=== PATIENT | female | born 1945 | race Caucasian/White ===

== ENCOUNTER 2017-04-26 13:34 | Observation (INO) ==
[2017-04-26] MEDS ORDERED: fentaNYL 100 MCG/2 ML VIAL IV ONE ×2 (13:53→14:42)
[2017-04-26 14:35] LABS: Basophils # (Auto) 0 K/mcL (0.0-0.3); Basophils % (Auto) 0.5 % (0.0-2.0); Eosinophils # (Auto) 0.2 K/mcL (0.0-0.7); Eosinophils % (Auto) 2.8 % (0.0-7.0); Granulocytes % (Auto) 62.7 % (38.0-78.0); Lymphocytes # (Auto) 1.8 K/mcL (1.5-4.8); Lymphocytes % (Auto) 25.5 % (15.5-49.0); Mean Cell Volume 90.9 fL (80.0-100.0); Mean Corpuscular HGB Conc 34.5 g/dL (31.0-36.0); Mean Corpuscular Hemoglobin 31.4 pg (26.0-34.0); Monocytes # (Auto) 0.6 K/mcL (0.1-0.9); Monocytes % (Auto) 8.5 % (1.0-12.0); Platelet Count 161 K/mcL (140-440); RBC 4.16 M/mcL (4.00-5.20); Red Cell Distribution Width 14.5 % (11.5-14.5)
--- NOTE | 2017-04-26 14:41 | Emergency Department Note ---
Upper Extremity HPI - General Chief Complaint: Extremity Injury, Upper Stated Complaint: R arm deformitiy r/t fall Time Seen by Provider: 04/26/17 13:39 Source: patient Mode of arrival: wheelchair Limitations: no limitations - History of Present Illness HPI Narrative: 71-year-old female who fell while trying to get out of the gait without letting her dog out. She has an obvious deformity of the right numerous and comes in via EMS having already received 100 mcg of fentanyl. No loss of consciousness or hitting head. She did scrape her elbow as well. had multiple other fractures in the past. She is not eat or drink today except for single Mountain Dew. Place: outdoors - Related Data Home Medications Medication Instructions Recorded Confirmed Potassium Chloride [K-Tab ER] 0 meq PO QDAY 04/26/17 04/26/17 Previous Rx's Medication Instructions Recorded omeprazole 20 mg capsule,delayed 20 mg PO .COMPLEX #90 cap 05/13/16 release celecoxib 200 mg capsule 200 mg PO QDAY #30 cap 09/07/16 spironolactone 25 mg tablet 25 mg PO BID #60 tab 09/07/16 tramadol 50 mg tablet 50 mg PO Q4H PRN #120 tab 11/02/16 amlodipine 10 mg tablet 10 mg PO QDAY #30 tab 12/17/16 pravastatin 40 mg tablet 40 mg PO QHS #90 tab 12/17/16 losartan 100 1 tab PO QDAY #90 tab 01/27/17 mg-hydrochlorothiazide 25 mg tablet levothyroxine 100 mcg tablet 100 mcg PO QDAY #90 tab 02/24/17 sertraline 100 mg tablet See Dose Instructions PO .COMPLEX 02/24/17 #135 tab baclofen 20 mg tablet 20 mg PO Q8H #30 tab 02/25/17 hydrocodone 7.5 mg-acetaminophen 1 tab PO Q6H PRN #60 tab 02/25/17 325 mg tablet oxybutynin chloride ER 10 mg 10 mg PO QDAY #90 tab 04/07/17 tablet,extended release 24 hr oxyCODONE/APAP [Percocet 5-325 mg] 1 tab PO Q4H PRN #20 tablet 04/26/17 Allergies Allergy/AdvReac Type Severity Reaction Status Date / Time codeine Allergy Mild Headache Verified 04/26/17 13:42 Amoxicillin AdvReac Intermediate Vomiting Verified 04/26/17 13:42 Iodides Allergy Mild Other Uncoded 02/25/17 14:01 Review of Systems All systems ED: reviewed and negative except as stated. Past Medical History - Past Medical History Attestation: Yes: The following information was validated with the patient. 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 Obvious deformity of right proximal humerus. Very tender to any movement of that. Normocephalic atraumatic. Conjunctive clear sclerae nonicteric. No nasal discharge or congestion. Neck is supple without lymphadenopathy thyromegaly. Heart regular rate and rhythm no murmurs appreciated. Lungs are clear to auscultation bilaterally without wheezes rales rhonchi or respiratory distress. +2 radial and ulnar pulses both pre-and post reduction of that right humerus. Abdomen is soft nontender nondistended. No pedal edema. She was alert and oriented both pre-and post-sedation. - General Limitations: no limitations Course Vital Signs Temperature 98.0 F 04/26/17 13:34 Pulse Rate 67 04/26/17 13:34 Respiratory Rate 18 04/26/17 13:34 Pulse Oximetry (%) 96 04/26/17 13:34 Temperature 97.9 F 04/26/17 17:45 Pulse Rate 74 04/26/17 18:51 Respiratory Rate 9 L 04/26/17 18:51 Blood Pressure 129/86 04/26/17 18:51 Pulse Oximetry (%) 90 04/26/17 18:51 Procedures - Procedural Sedation Indication: fracture/dislocation reduction ASA Class: III Time of Last PO Intake: 00:00 (See HPI) Preparation: cardiac catheterization technician applied, pulse oximeter, supplemental O2 applied, reversal agents at bedside, IV secured Midazolam: IV Midazolam Dose: 2 IV Propofol Dose (mgs): 150 Patient Tolerated Procedure: well Complications: hypoxia Interventions: oxygen applied, airway repositioned Additional Comments: She tolerated the procedure well with oxygen and did not require any other interventions. However we could not get her off the oxygen even after she awoke fully Extremity Injury, Upper - Lab Data Lab results reviewed: Yes I reviewed the patient's lab results. Result diagrams: 04/26/17 14:09 04/26/17 14:09 Lab Results 04/26/17 04/26/17 Range/Units 14:09 14:09 WBC 6.9 (4.5-11.0) K/mcL RBC 4.16 (4.00-5.20) M/mcL Hgb 13.0 (12.0-15.0) g/dL Hct 37.8 (36.0-48.0) % MCV 90.9 (80.0-100.0) fL MCH 31.4 (26.0-34.0) pg MCHC 34.5 (31.0-36.0) g/dL RDW 14.5 (11.5-14.5) % Plt Count 161 (140-440) K/mcL MPV 9.7 (7.4-10.4) fL Gran % 62.7 (38.0-78.0) % Lymph % (Auto) 25.5 (15.5-49.0) % [place] % (Auto) 8.5 (1.0-12.0) % Eos % (Auto) 2.8 (0.0-7.0) % Baso % (Auto) 0.5 (0.0-2.0) % Gran # 4.3 (1.8-8.0) K/mcL Lymph # (Auto) 1.8 (1.5-4.8) K/mcL [place] # (Auto) 0.6 (0.1-0.9) K/mcL Eos # (Auto) 0.2 (0.0-0.7) K/mcL Baso # (Auto) 0 (0.0-0.3) K/mcL Sodium 140 (133-145) mmol/L Potassium 4.1 (3.3-5.1) mmol/L Chloride 105 (96-108) mmol/L Carbon Dioxide 24 (22-30) mmol/L Anion Gap 11.0 (8-16) BUN 32 H (8-23) mg/dl Creatinine 1.1 (0.6-1.1) mg/dl GFR Calculation 51 Glucose 107 H (70-105) mg/dL Calcium 10.3 (8.6-10.4) mg/dl Total Bilirubin 1.3 H (0.0-1.0) mg/dL AST 16 (0-37) U/l ALT 14 (0-40) U/l Alkaline Phosphatase 97 (39-117) U/L Total Protein 6.9 (5.9-8.4) gm/dL Albumin 4.1 (3.2-5.2) gm/dL Globulin 2.8 (2.2-3.7) gm/dL Albumin/Globulin Ratio 1.5 (1.0-2.3) - Radiology Data Chest x-ray shows no acute cardiopulmonary disease Hand and wrist x-rays show old fractures and significant osteoarthrosis but no acute Right humerus films show severely comminuted fracture surgical neck right humerus; reduction films show much improved alignment - EKG Data EKG attestation: Yes I reviewed and interpreted this EKG. EKG results narrative: EKG shows a rate of 71 with 1 PAC but otherwise normal sinus rhythm Disposition Pt seen by MEDICAL RECORD ASSISTANT/PA only: No Clinical Impression: Humeral fracture Qualifiers: Encounter type: initial encounter Humerus Location: surgical neck Fracture type : closed Fracture morphology: 2-part Fracture alignment: displaced Laterality: right Qualified Code(s): S42.221A - 2-part displaced fracture of surgical neck of right humerus, initial encounter for closed fracture Summary: Severely inferiorly and posteriorly displaced right humeral surgical neck fracture seen. Total during her hospital stay here she received 100 mcg of fentanyl (plus another 100 given by EMS), 3 mg of Dilaudid, 2 mg of Versed-was not touching her pain and it was still 7 out of 10 prior to reduction. I initially discussed the case with Dr. Valadez who felt that it did not require reduction but that we could put her in immobilizer and have her seen on Tuesday by Dr. Partida who would likely do surgery. However as we could not control her pain well despite multiple medicines above, I was concerned also about vascular/neurologic compromise with such a severe fracture/dislocation that we decided to go ahead and attempt reduction . Partially reduced under procedural sedation with propofol- We gave 150 mg of propofol during sedation under full monitoring with oxygen to support. Postreduction film shows much better alignment and she did not require pain medicine after reduction. Shoulder immobilizer was applied . Recovered from sedation doing much better pain-sesay but we are unable to get her off oxygen. She was requiring 5 L of oxygen to keep her saturations above 88% though. so I discussed the case with Dr. David, the hospitalist, who agreed to accept the patient to control her pain and support her respiratory effort Disposition: Xfer As Outpt/Obs ([facility]) Condition: Fair Prescriptions: oxyCODONE/APAP [Percocet 5-325 mg] 1 tab PO Q4H PRN #20 tablet PRN Reason: Pain Referrals: Sd Ugalde MD [Primary Care Provider] - Slim Anderson MD [Physician] -
[2017-04-26] MEDS: HYDROmorphone 2 MG/ML SYRINGE IV PRN ×4 (14:45→16:10)
[2017-04-26 14:52] LABS: ALT/SGPT 14 U/l (0-40); Albumin 4.1 gm/dL (3.2-5.2); Albumin/Globulin Ratio 1.5 (1.0-2.3); Alkaline Phosphatase 97 U/L (39-117); Blood Urea Nitrogen 32 mg/dl (8-23)
[2017-04-26] MEDS ORDERED: ONDANSETRON 4 MG/2 ML VIAL ONE (14:57)
[2017-04-26] MEDS ORDERED: ONDANSETRON 4 MG/2 ML VIAL IV ONE (15:05)
--- NOTE | 2017-04-26 15:22 | XRay Report ---
CLINICAL INFORMATION: Trauma COMPARISON: None. FINDINGS: Obliquely oriented mildly impacted and slightly angulated fracture through the base of the fourth proximal phalanx is appreciated. There is moderate healing callus. Severe erosive osteoarthritis present in the second PIP and DIP, the third DIP fourth and fifth DIP and first DIP with moderate changes in the fourth and fifth PIP. Severe degenerative changes noted in the STT and first CMC. IMPRESSION: Obliquely oriented mildly angulated impaction fracture the base of the fifth proximal phalanx of healing callus implying the fracture is subacute Multilevel degenerative change Interpreted and Authenticated by: Brandon Díaz 04/26/17
--- NOTE | 2017-04-26 15:26 | XRay Report ---
CLINICAL INFORMATION: Trauma COMPARISON: None. FINDINGS: Obliquely oriented healing fracture the base of the fifth proximal phalanx with minimal displacement appreciated. There is no fracture seen within the wrist. Moderate STT and first CMC degenerative change noted. Diffuse soft tissue swelling noted IMPRESSION: 1. No evidence of wrist fracture. 2. Healing minimally displaced oblique fracture base of fifth proximal phalanx again noted Interpreted and Authenticated by: Brandon Díaz 04/26/17
--- NOTE | 2017-04-26 15:26 | XRay Report ---
CLINICAL INFORMATION: Preop COMPARISON: 09/02/2016 FINDINGS:The heart size, mediastinum and pulmonary vessels are unremarkable. The lungs are clear. There are no effusions. The bones and soft tissues are within normal limits. IMPRESSION: Normal chest. Interpreted and Authenticated by: Brandon Díaz 04/26/17
--- NOTE | 2017-04-26 15:28 | XRay Report ---
CLINICAL INFORMATION: Trauma COMPARISON: None. FINDINGS: A severely comminuted fracture through the surgical neck of humerus appreciated. The distal diaphyseal fragment is displaced an entire shaft width inferiorly and medially with respect to the humeral head. Fracture lines actually involves the entire humeral head. Humeral head fragments are mildly - less than 5 mm. Acromial clavicular joint is unremarkable IMPRESSION: Transversely oriented, severely comminuted fracture through the surgical neck with comminuted fracture extension throughout the humeral head. Marked displacement Interpreted and Authenticated by: Brandon Díaz 04/26/17
[2017-04-26] MEDS ORDERED: MIDAZOLAM 2 MG/2 ML VIAL IV ONE (15:41)
[2017-04-26] MEDS ORDERED: PROPOFOL 200 MG/20 ML VIAL IV ONE (16:35)
[2017-04-26] MEDS ORDERED: MIDAZOLAM 5 MG/5 ML VIAL IV ONE (16:36)
[2017-04-26] MEDS ORDERED: diphenhydrAMINE 50 MG/ML VIAL IV ONE (18:13)
--- NOTE | 2017-04-26 18:40 | XRay Report ---
CLINICAL INFORMATION: Post reduction severely comminuted fracture of the humeral head and surgical neck COMPARISON: Prereduction plain films 04/26/2017 1344 hours. FINDINGS: There is marked improved alignment of the severely comminuted fracture of the humeral head and surgical neck. The distal diaphyseal fragment is now displaced only approximately 5 mm lateral to the humeral head. IMPRESSION: Dramatic improvement in alignment of severely comminuted fracture of the humeral head and anatomic and surgical neck. Minimal residual displacement deformity. Interpreted and Authenticated by: Brandon Díaz 04/26/17
--- NOTE | 2017-04-26 19:52 | Internal Med History&Physical ---
Medical - H&P: HPI Patient information: Note initiated : 04/26/17 at 7:49 pm Patient: Selena Jaquez 71 y/o F admitted on for Rt Arm Deformitiy r/t Fall. History of present illness: Ms. Jaquez is a 71 year old female with a history of significant obesity, who was trying to open her gait today, while also keeping the dog inside the gait, and ended up tripping and falling. She landed on her right side, and had immediate pain. She was brought to the emergency room where a comminuted right humerus fracture was diagnosed. It was quite severely displaced. The ER talked with Dr. Valadez of orthopedics. He thought she could just be sent home in a shoulder brace and follow-up with orthopedics on Tuesday. However, the patient was in so much pain, that they did sedation in the ER and reduced the fracture, and then put her in a brace. She tolerated the procedure fine, but has not been able to keep her oxygen saturation above 90% on room air since she received narcotics. The ER held her for 3 hours, but her O2 saturations are still quite low, so she is now admitted for observation. The patient tells me that she has often had trouble with her oxygen levels after anesthesia, in the past. Otherwise, she says she has been feeling pretty well. She denies recent fever or chills, headaches or dizziness, new eye or ear symptoms. She reports that she is "chronically shaky". She denies sore throat or cough. She does have chronic dyspnea on exertion, which is unchanged. She denies chest pain or palpitations. She denies abdominal pain, nausea or vomiting. She reports she has IBS, so has alternating constipation and diarrhea. She denies dysuria. Medical History Seasonal allergic rhinitis. 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/14) use tramadol prn Flank pain (Chronic) Hematuria (Chronic) Hydroureter (Chronic) Ureteric Obstruction Hyperlipidemia (Chronic) Hypertension, essential (Chronic) Major depressive disorder in remission (Chronic) Pain in joint, shoulder region (Chronic) 2011 Fractured upper humerus-conservatively treated Sinusitis (Chronic) Ureteral calculus (Chronic 10/08/13) Urinary incontinence, urge (Chronic 03/26/13) Kidney calculus (Resolved 04/22/14) Left side Nausea (Resolved) Surgical History History of intravascular stent placement (Chronic 08/07/13) 6 x 26 Polaris Loop Stent History of ureter stent (Chronic 10/09/13) Right ureteroscopy with laser of stone and placement of stent. H/O cystoscopy (Resolved 10/09/13) H/O lithotripsy (Resolved 05/07/14) Cystoscopy, placement of 6 x 26 Polaris Loop stent and LT ESWL H/O sinus surgery (Resolved) 1999 H/O tubal ligation (Resolved) 1990 H/O: hemorrhoidectomy (Resolved) 1988 Medication List acetaminophen-codeine 120 mg-12 mg /5 mL (5 mL) 5 mL PO QID PRN, just recently. She denies overt allergy. amlodipine 10 mg PO QDAY celecoxib 200 mg PO QDAY levothyroxine 100 mcg PO QDAY losartan-hydrochlorothiazide 100-25 mg 1 tab PO QDAY omeprazole 20 mg PO once daily before a meal. oxybutynin chloride ER 10 mg PO QDAY potassium chloride ER 10 mEq PO QDAY, plus K-Dominique con 20 mEq nightly pravastatin 40 mg PO QHS promethazine 25 mg PO Q4-6HP PRN sertraline Take 1/2 tablet (50MG) QAM and one tablet (100MG) QHS PO spironolactone 25 mg PO BID tramadol 50 mg PO p.o. twice daily Benadryl 25 mg every 6 hours as needed Allergies/Adverse Reactions codeine Allergy (Mild, Verified 02/25/17 14:01) Headache Amoxicillin Adverse Reaction (Intermediate, Verified 02/25/17 14:01) Vomiting Iodides Allergy (Mild, Uncoded 02/25/17 14:01) Other Family History Aunt Malignant neoplasm of brain Grandmother-maternal Malignant neoplasm of brain Mother Diabetes mellitus Myocardial Infarction Malignant neoplasm of stomach Grandfather-maternal Myocardial Infarction Social History The patient lives with and is the caregiver for her mother. Her 16-year-old granddaughter also lives with her. She denies tobacco or drug use. She drinks alcohol rarely. Medical - H&P: Meds Home Medications Medication Instructions Recorded Confirmed Type spironolactone 25 mg tablet 25 mg PO BID #60 tab 09/07/16 04/26/17 Rx pravastatin 40 mg tablet 40 mg PO QHS #90 tab 12/17/16 04/26/17 Rx levothyroxine 100 mcg tablet 100 mcg PO QDAY #90 tab 02/24/17 04/26/17 Rx Celecoxib 200 mg PO QHS 04/26/17 04/26/17 History Klor-Con M20 20 meq PO QHS 04/26/17 04/26/17 History Losartan/Hctz 100/25 [Hyzaar 1 tab PO QHS 04/26/17 04/26/17 History 100/25] Omeprazole [Prilosec] 20 mg PO DAILY 04/26/17 04/26/17 History Oxybutynin Chloride [Oxybutynin 10 mg PO QHS 04/26/17 04/26/17 History Chloride ER] Potassium Chloride [K-Tab ER] 0 meq PO QDAY 04/26/17 04/26/17 History Sertraline [Zoloft] 100 mg PO QHS 04/26/17 04/26/17 History amLODIPine BESYLATE [Norvasc] 10 mg PO HS 04/26/17 04/26/17 History diphenhydrAMINE [Benadryl] 25 mg PO Q6HP PRN 04/26/17 04/26/17 History sertraline 100 mg tablet 50 mg PO DAILY 04/26/17 04/26/17 History traMADol [Ultram] 50 mg PO BID 04/26/17 04/26/17 History Allergies Allergy/AdvReac Type Severity Reaction Status Date / Time iodine Allergy Intermediate Skin Verified 04/26/17 20:31 Reaction codeine AdvReac Severe Migraine Verified 04/26/17 20:38 Amoxicillin AdvReac Intermediate Diarrhea Verified 04/26/17 20:38 Medical - H&P: Exam - Constitutional Vitals: Temp Pulse Resp BP Pulse Ox 97.9 F 74 9 L 129/86 90 04/26/17 17:45 04/26/17 18:51 04/26/17 18:51 04/26/17 18:51 04/26/17 18:51 Oxygen reported to be as low as 88% on 4 L, now at 90% on a 5 L mask. Respiratory rate ranges from 7-16. The patient is a markedly overweight elderly female, in no acute distress. She does seem a bit groggy from the pain medications. Head: Normocephalic, atraumatic. Eyes: PERRLA, EOMI, anicteric. Ears: TMs and canals are clear. Pharynx: Is clear. Teeth are in fair condition. Mucosa appears dry. Neck: Appears supple, without lymphadenopathy, JVD, thyromegaly, bruits. Cardiac exam shows regular rate and rhythm with normal S1 and S2. No murmurs, rubs, gallops are noted. Lungs: Clear to auscultation, without obvious rales, rhonchi, wheezes. Abdomen: Is quite obese, but soft. There is minimal tenderness to palpation, which is somewhat vague. Bowel sounds are active. Extremities: Show no significant edema, no cyanosis or clubbing. Right arm is held in a brace. Pulses are intact. She can move her fingers fine , but this does cause some pain. Neurologic exam: Patient is awake and oriented, but speech is a bit slurred and she seems sleepy. Motor exam is otherwise nonfocal. Medical - H&P: Reslt - Labs CBC & Chem 7: 04/26/17 14:09 04/26/17 14:09 Labs: Short CBC 04/26/17 Range/Units 14:09 WBC 6.9 (4.5-11.0) K/mcL Hgb 13.0 (12.0-15.0) g/dL Hct 37.8 (36.0-48.0) % Plt Count 161 (140-440) K/mcL BMP 04/26/17 14:09 Sodium 140 Potassium 4.1 Chloride 105 Carbon Dioxide 24 BUN 32 H Creatinine 1.1 Glucose 107 H Calcium 10.3 Liver Function 04/26/17 Range/Units 14:09 Total Bilirubin 1.3 H (0.0-1.0) mg/dL AST 16 (0-37) U/l ALT 14 (0-40) U/l Alkaline Phosphatase 97 (39-117) U/L Albumin 4.1 (3.2-5.2) gm/dL April 26: Right humerus x-ray: Transversely oriented, severely comminuted fracture through the surgical neck with comminuted fracture extension throughout the humeral head with marked displacement. EKG: Shows probable sinus arrhythmia at a rate of about 90. Normal axis. No obvious acute ST-T changes Wrist x-ray: No risk fracture. Healing minimally displaced fracture of the fifth proximal phalanx. Repeat right hand limited 2 view x-ray: Obliquely oriented mildly angulated impaction fracture of the base of the fifth proximal phalanx of the healing callus, implying the fracture is subacute. Chest x-ray: Normal. ABG on 2 L oxygen mask: Shows pH of 7.32, PCO2 51, PO2 67, bicarb 26, O2 saturation 91% Medical - H&P: A/P (1) Fall as cause of accidental injury at home as place of occurrence Current visit: Yes Status: Acute (2) Hypoxia Current visit: Yes Status: Acute (3) Dehydration Current visit: Yes Status: Acute (4) Humeral fracture Current visit: Yes Status: Acute - Narrative A/P Narrative: #1. Pulmonary. Patient presents with persistent hypoxia on room air, after receiving sedation in the emergency room to reduce a humerus fracture. It has been several hours since she was last medicated, but we cannot keep her O2 sats above 90%. Respiratory rate is a bit low, but otherwise there is no obvious reason for this. Given her body habitus, I suspect she has obesity hypoventilation syndrome, which is quite aggravated by sedatives. -Admit to observation, with continuous pulse oximetry. -Check further labs to evaluate hypoxia further, BNP and troponin, d-dimer. 2. Right humerus fracture, after ground-level fall. -Orthopedic evaluation. -Patient is status post reduction. Continue shoulder immobilizer. -Pain meds as needed/tolerated. -PT/ OT evaluations. Consider whether she would be safe to go home at discharge , or would need rehab. -Recent history of multiple falls. 3. CODE STATUS: It sounds like she wants full code, but would not want long- term life support. She says both her sister and her son will act as POA. 4. VT prophylaxis: Subcu heparin. 5. Renal. Patient appears mildly dehydrated. Give gentle IV fluids. #6. GERD. Continue Prilosec. 7. Hypertension. Continue current medications, but I think I will hold the Aldactone, given that she looks a little dry today. 8. Diffuse arthritis. Continue Celebrex, tramadol. For tonight we will also add Tylenol and as needed morphine. 9. Hypothyroidism. Continue levothyroxine. 10. Depression and chronic pain. Continue sertraline. This visit took approximately 50 minutes, to review her case with the ER MD, review test results, order more labs, interview and examine her, and review plan of care with her.
[2017-04-26] MEDS ORDERED: oxyCODONE/APAP 5/325MG TABLET PO PRN ×2 (20:20→22:07)
[2017-04-26] MEDS ORDERED: DOCUSATE SODIUM 100 MG CAPSULE PO PRN ×2 (20:20→22:07)
[2017-04-26] MEDS ORDERED: CALCIUM CARBONATE 500 MG TAB.CHEW CHEWED PRN ×2 (20:20→22:07)
[2017-04-26] MEDS ORDERED: 0.45 % SODIUM CHLORIDE 1,000 ML IV SCH (20:20)
[2017-04-26] MEDS ORDERED: NALOXONE HCL 0.4 MG/ML VIAL IV PRN ×2 (20:20→22:07)
[2017-04-26] MEDS ORDERED: ONDANSETRON 4 MG/2 ML VIAL IV PRN ×2 (20:20→22:07)
[2017-04-26] MEDS ORDERED: ACETAMINOPHEN 325 MG TABLET PO PRN ×2 (20:20→22:07)
[2017-04-26] MEDS ORDERED: MAGNESIUM HYDROXIDE 30 ML ORAL.SUSP PO PRN ×2 (20:20→22:07)
[2017-04-26 20:55] LABS: Appearance,Urine HAZY; Bacteria,Urine 0 /hpf (0); Bilirubin,Urine NEG (NEG); Color,Urine YELLOW; Glucose,Urine (UA) NEGATIVE (NEG); Leukocyte Esterase,Urine 25 /uL (NEG); Mucus,Urine FEW /hpf (0); Nitrate,Urine NEG (NEG); Protein,Urine NEG (NEG); Specific Gravity,Urine 1.018 (1.000-1.035); Urine Blood NEG mg/dL (<0.03); Urine Hyaline Cast 4 /lpf (0-2); Urine RBC < 1 /hpf (0-1); Urine Squamous Epithelial Cell 3 /hpf (0-4); Urine Transitional Epi Cells < 1 /hpf (0-2); Urine WBC 6 /hpf (0-4); Urobilinogen,Urine NEG (NEG)
[2017-04-26] MEDS ORDERED: HEPARIN 5,000 UNIT/ML VIAL SQ SCH (21:00)
[2017-04-26] MEDS: 0.45 % SODIUM CHLORIDE 1,000 ML IV SCH (21:10)
[2017-04-26 21:42] LABS: proBNP 211.1 pg/ml (0-125)
[2017-04-26] MEDS ORDERED: 0.9 % SODIUM CHLORIDE 10 ML SYRINGE IV SCH (22:00)
[2017-04-27] MEDS: 0.9 % SODIUM CHLORIDE 10 ML SYRINGE IV SCH ×2 (05:14→14:43)
[2017-04-27 06:07] LABS: ALT/SGPT 13 U/l (0-40); Albumin 3.9 gm/dL (3.2-5.2); Albumin/Globulin Ratio 1.6 (1.0-2.3); Alkaline Phosphatase 85 U/L (39-117); Bilirubin,Direct 0.2 mg/dL (0.0-0.3); Blood Urea Nitrogen 27 mg/dl (8-23); Gamma Glutamyl Transpeptidase 18 U/L (5-36); Magnesium 2.1 mg/dL (1.6-2.5); Uric Acid 5.9 mg/dL (2.5-8.0)
[2017-04-27 06:57] LABS: Basophils # (Auto) 0 K/mcL (0.0-0.3); Basophils % (Auto) 0.3 % (0.0-2.0); Eosinophils # (Auto) 0.1 K/mcL (0.0-0.7); Eosinophils % (Auto) 1.8 % (0.0-7.0); Granulocytes % (Auto) 70.3 % (38.0-78.0); Lymphocytes # (Auto) 1.4 K/mcL (1.5-4.8); Lymphocytes % (Auto) 18.3 % (15.5-49.0); Mean Cell Volume 90.9 fL (80.0-100.0); Mean Corpuscular Hemoglobin 30.9 pg (26.0-34.0); Monocytes # (Auto) 0.7 K/mcL (0.1-0.9); Monocytes % (Auto) 9.3 % (1.0-12.0); Platelet Count 135 K/mcL (140-440); RBC 3.85 M/mcL (4.00-5.20); Red Cell Distribution Width 14.2 % (11.5-14.5)
[2017-04-27] MEDS ORDERED: LEVOTHYROXINE 100 MCG TABLET PO SCH (07:30)
[2017-04-27] MEDS ORDERED: OMEPRAZOLE 20 MG CAPSULE PO SCH (07:30)
[2017-04-27] MEDS ORDERED: POTASSIUM CHLORIDE 10 MEQ TABLET PO SCH (08:00)
[2017-04-27] MEDS ORDERED: SERTRALINE 50 MG TABLET PO SCH ×2 (09:00→21:00)
[2017-04-27] MEDS ORDERED: traMADol 50 MG TABLET PO SCH (09:00)
[2017-04-27] MEDS ORDERED: HEPARIN 5,000 UNIT/ML VIAL SQ SCH (09:00)
[2017-04-27] MEDS: 0.45 % SODIUM CHLORIDE 1,000 ML IV SCH (10:48)
[2017-04-27] MEDS ORDERED: CETIRIZINE 10 MG TABLET PO ONE (10:58)
--- NOTE | 2017-04-27 12:47 | Internal Med Progress Note ---
Medical - PN: Subj Patient information: Note initiated : 04/27/17 at 12:45 pm Patient: Selena Jaquez 71 y/o F admitted on 04/26/17 for Rt Arm Deformitiy r/t Fall/Humeral Fracture. Interval history: April 26, 2017: History of present illness: Ms. Jaquez is a 71 year old female with a history of significant obesity, who was trying to open her gait today, while also keeping the dog inside the gait, and ended up tripping and falling. She landed on her right side, and had immediate pain. She was brought to the emergency room where a comminuted right humerus fracture was diagnosed. It was quite severely displaced. The ER talked with Dr. Valadez of orthopedics. He thought she could just be sent home in a shoulder brace and follow-up with orthopedics on Tuesday. However, the patient was in so much pain, that they did sedation in the ER and reduced the fracture, and then put her in a brace. She tolerated the procedure fine, but has not been able to keep her oxygen saturation above 90% on room air since she received narcotics. The ER held her for 3 hours, but her O2 saturations are still quite low, so she is now admitted for observation. The patient tells me that she has often had trouble with her oxygen levels after anesthesia, in the past. Otherwise, she says she has been feeling pretty well. She denies recent fever or chills, headaches or dizziness, new eye or ear symptoms. She reports that she is "chronically shaky". She denies sore throat or cough. She does have chronic dyspnea on exertion, which is unchanged. She denies chest pain or palpitations. She denies abdominal pain, nausea or vomiting. She reports she has IBS, so has alternating constipation and diarrhea. She denies dysuria. April 27: This morning, the patient is a bit more comfortable. She is more awake now, and seems to be oxygenating well. She is still having significant pain of her shoulder is moved at all, so did receive oral Percocet. She is now complaining that she is feeling a little itchy all over. She rates her current pain as about 6 out of 10. Nurses note that she has a great deal of difficulty with movement. She needs assistance to stand up, but can walk when she is standing. She needs a lot of assistance, and has a lot of pain if she tries to bathe or dress herself. She does have one leg that is longer than the other, and says that this always puts her little bit off balance. Otherwise, she denies fever or chills, headaches or dizziness, chest pain or shortness of breath, abdominal pain, nausea or vomiting, dysuria. - Constitutional Vitals: Vital Signs Temp Pulse Resp BP Pulse Ox 98.9 F 63 20 133/78 94 04/27/17 12:00 04/27/17 04:00 04/27/17 12:00 04/27/17 12:00 04/27/17 12:00 Period Temp Pulse Resp BP Sys/Garay Pulse Ox Last 24 Hr 97.6 F-98.9 F 63-89 16-20 112-146/73-82 88-95 Intake and Output 04/26/17 04/27/17 04/27/17 21:59 05:59 13:59 Intake Total 400 / 400 1240 / 1240 Output Total 500 / 500 550 / 550 Balance -100 / -100 690 / 690 Weight 264 lb 8 oz Intake & Output: Intake & Output 04/26/17 04/27/17 04/27/17 21:59 05:59 13:59 Intake Total 400 / 400 1240 / 1240 Output Total 500 / 500 550 / 550 Balance -100 / -100 690 / 690 Weight 264 lb 8 oz Intake: IV 1000 / 1000 Sodium Chloride 0.45% 1, 1000 / 1000 000 ml @ 75 mls/hr IV . [id number] [facility] Rx#:[id number] Oral 400 / 400 240 / 240 Output: Void Amount 500 / 500 550 / 550 Other: Meal Breakfast Percent of Meal Consumed 100% Feeding Ability Independent sHe is afebrile. Vital signs are normal, although oxygen saturation ranges from 91% on room air to 94% on 2 L. Neck is supple without obvious lymphadenopathy. Cardiac exam shows regular rate and rhythm. Lungs: Decreased breath sounds at the bases, but otherwise are generally clear. Abdomen is soft and nontender. Extremities: Lower extremities show no significant edema. Right arm is held close to her chest with the shoulder sling. She has significant amount of discomfort if her arm is manipulated in any way. Neurologic exam: Is grossly nonfocal. Medical - PN: Obj Da - Labs CBC & Chem 7: 09/27/17 04:22 04/27/17 04:22 Labs: Abnormal Lab Results 04/27/17 04/27/17 04/26/17 04:22 04:22 20:40 RBC 3.85 L Hgb 11.9 L Hct 35.0 L Plt Count 135 L MPV 11.0 H Lymph # (Auto) 1.4 L BUN 27 H Glucose 115 H Total Bilirubin 1.2 H NT-Pro-B Natriuret Pep Urine Ketones 5/tr A Ur Leukocyte Esterase 25 A Urine WBC 6 H Hyaline Casts 4 H 04/26/17 20:37 RBC Hgb Hct Plt Count MPV Lymph # (Auto) BUN Glucose Total Bilirubin NT-Pro-B Natriuret Pep 211.1 H Urine Ketones Ur Leukocyte Esterase Urine WBC Hyaline Casts April 26: Right humerus x-ray: Transversely oriented, severely comminuted fracture through the surgical neck with comminuted fracture extension throughout the humeral head with marked displacement. EKG: Shows probable sinus arrhythmia at a rate of about 90. Normal axis. No obvious acute ST-T changes Wrist x-ray: No risk fracture. Healing minimally displaced fracture of the fifth proximal phalanx. Repeat right hand limited 2 view x-ray: Obliquely oriented mildly angulated impaction fracture of the base of the fifth proximal phalanx of the healing callus, implying the fracture is subacute. Chest x-ray: Normal. ABG on 2 L oxygen mask: Shows pH of 7.32, PCO2 51, PO2 67, bicarb 26, O2 saturation 91% Meds: Medications Acetaminophen (Tylenol) 650 mg PO Q6HP PRN PRN Reason: PAIN/FEVER > 101 Amlodipine Besylate (Norvasc) 10 mg PO HS CATHY Calcium Carbonate/Glycine (Tums) 1,000 mg CHEWED Q4HP PRN PRN Reason: Dyspepsia Celecoxib (Celebrex) 200 mg PO QHS CATHY Docusate Sodium (Colace) 100 mg PO BID PRN PRN Reason: Constipation Heparin Sodium (Porcine) (Heparin) 5,000 unit SQ Q12 CATHY Last Admin: 04/27/17 09:03 Dose: 5,000 unit Hydrochlorothiazide (Oretic) 25 mg PO HS CATHY Sodium Chloride (Sodium Chloride 0.45%) 1,000 mls @ 75 mls/hr IV .[id number] [facility] Last Admin: 04/27/17 10:48 Dose: 75 mls/hr Levothyroxine Sodium (Synthroid) 100 mcg PO QAMAC [facility] Last Admin: 04/27/17 06:52 Dose: 100 mcg Losartan Potassium (Cozaar) 100 mg PO HS [facility] Magnesium Hydroxide (Milk Of Magnesia) 30 ml PO DAILYP PRN PRN Reason: Constipation Morphine Sulfate (Morphine) 2 mg IV Q2HP PRN PRN Reason: Pain Naloxone HCl (Narcan) 0.1 mg IV Q2MIN PRN PRN Reason: Opiate Reversal Omeprazole (Prilosec) 20 mg PO QAMAC [facility] Last Admin: 04/27/17 06:52 Dose: 20 mg Ondansetron HCl (Zofran) 4 mg IV Q6HP PRN PRN Reason: Nausea And Vomiting Oxybutynin Chloride (Ditropan Xl) 10 mg PO HS [facility] Oxycodone/Acetaminophen (Percocet 5-325 Mg) 1 tab PO Q4HP PRN PRN Reason: Pain Last Admin: 04/27/17 07:28 Dose: 1 tab Potassium Chloride (Kdur) 20 meq PO QHS CATHY Potassium Chloride (Kdur) 10 meq PO QAMCC [facility] Last Admin: 04/27/17 09:02 Dose: 10 meq Sertraline HCl (Zoloft) 50 mg PO DAILY [facility] Last Admin: 04/27/17 09:03 Dose: 50 mg Sertraline HCl (Zoloft) 100 mg PO HS CATHY Simvastatin (Zocor) 20 mg PO HS [facility] Sodium Chloride (Saline Flush) 10 ml IV Q8 [facility] Last Admin: 04/27/17 05:14 Dose: Not Given Tramadol HCl (Ultram) 50 mg PO BID [facility] Last Admin: 04/27/17 09:02 Dose: 50 mg Medical - PN: A/P - Time Spent With Patient Total time spent is greater than 50% in coordination of care (as documented) at patient's floor/unit and/or counseling patient: 25 - 35 minutes (1) Fall as cause of accidental injury at home as place of occurrence Status: Acute Current Visit: Yes (2) Hypoxia Status: Acute Current Visit: Yes (3) Dehydration Status: Acute Current Visit: Yes (4) Humeral fracture Status: Acute Current Visit: Yes - Narrative A/P Narrative: #1. Pulmonary. Patient presents with persistent hypoxia on room air, after receiving sedation in the emergency room to reduce a humerus fracture. It has been several hours since she was last medicated, but we cannot keep her O2 sats above 90%. Respiratory rate is a bit low, but otherwise there is no obvious reason for this. Given her body habitus, I suspect she has obesity- hypoventilation syndrome, which is quite aggravated by sedatives. -Oxygenation appears back to normal today. 2. Right humerus fracture, after ground-level fall. -Orthopedic evaluation. I am still waiting to hear if Dr. Partida might be available to have a look at her today.. -Patient is status post reduction. Continue shoulder immobilizer. -Pain meds as needed/tolerated. -PT/ OT evaluations. Consider whether she would be safe to go home at discharge , or would need rehab. -Recent history of multiple falls. Case management is trying to look at options for her, which would be safe and prevent her from falling again. 3. CODE STATUS: It sounds like she wants full code, but would not want long- term life support. She says both her sister and her son will act as POA. 4. VT prophylaxis: Subcu heparin. 5. Renal. Patient appears mildly dehydrated. Give gentle IV fluids. #6. GERD. Continue Prilosec. 7. Hypertension. Continue current medications, but I think I will hold the Aldactone, given that she looks a little dry today. 8. Diffuse arthritis. Continue Celebrex, tramadol. For tonight we will also add Tylenol and as needed morphine. 9. Hypothyroidism. Continue levothyroxine. 10. Depression and chronic pain. Continue sertraline. Approximately 30 minutes has been spent so far today, reviewing test results, interviewing and examining the patient, touching base with orthopedics, reviewing plan of care with staff, and writing orders. Medical - PN: Qual - VTE Deep Vein Thrombosis/Pulmonary Embolism Present on Admission: No
--- NOTE | 2017-04-27 16:19 | Discharge Summary ---
Medical - DS: Prov Patient information: Note initiated : 04/27/17 at 4:10 pm Patient: Selena Jaquez a 71 y/o F admitted on 04/26/17 for Rt Arm Deformitiy r/t Fall/Humeral Fracture. Date of admission: 04/26/17 20:13 Discharge date: 04/27/17 Primary care physician: Sd Ugalde Admitting clinician: Debbie Donis Consults: 04/27/17 09:56 Consult to Physician [CONS] Routine Comment: humerus fx Consulting Provider: Slim Anderson Reason For Exam: Physician to Consult Attending physician on discharge: Debbie Donis Medical - DS: Meds - Discharge Medications Prescriptions: HYDROcodone/APAP 5/325MG [[place] 5/325Mg] 1 tab PO Q4HP PRN #30 tablet PRN Reason: Pain Active and Home Medications: Discharge medications: Continue all home medications except spironolactone. Please hold this for now. Add [place] 5/325 1-2 every 4 hours as needed uncontrolled pain. Previous home Medications: spironolactone 25 mg tablet 25 mg PO BID #60 tab 09/07/16 [Rx Confirmed Last Taken 04/26/17 08:00] pravastatin 40 mg tablet 40 mg PO QHS #90 tab 12/17/16 [Rx Confirmed 04/26/17 Last Taken 04/25/17 21:00] levothyroxine 100 mcg tablet 100 mcg PO QDAY #90 tab 02/24/17 [Rx Confirmed Last Taken 04/26/17 08:00] Celecoxib 200 mg PO QHS 04/26/17 [History Confirmed 04/26/17 Last Taken 21:00] Klor-Con M20 20 meq PO QHS 04/26/17 [History Confirmed 04/26/17 Last Taken 04/25 21:00] Losartan/Hctz 100/25 [Hyzaar 100/25] 1 tab PO QHS 04/26/17 [History Confirmed Last Taken 04/25/17 21:00] Omeprazole [Prilosec] 20 mg PO DAILY 04/26/17 [History Confirmed 04/26/17 Last Taken 04/26/17 08:00] Oxybutynin Chloride [Oxybutynin Chloride ER] 10 mg PO QHS 04/26/17 [History Confirmed 04/26/17 Last Taken 04/25/17 21:00] Potassium Chloride [K-Tab ER] 10 meq PO DAILY 04/26/17 [History Confirmed Last Taken 04/26/17 08:00] Sertraline [Zoloft] 100 mg PO QHS 04/26/17 [History Confirmed 04/26/17 Last Taken 04/25/17 21:00] amLODIPine BESYLATE [Norvasc] 10 mg PO HS 04/26/17 [History Confirmed 04/26/17 Last Taken 04/25/17 21:00] diphenhydrAMINE [Benadryl] 25 mg PO Q6HP PRN 04/26/17 [History Confirmed Last Taken 01/29/17] sertraline 100 mg tablet 50 mg PO DAILY 04/26/17 [History Confirmed 04/26/17 Last Taken 04/26/17 08:00] traMADol [Ultram] 50 mg PO BID 04/26/17 [History Confirmed 04/26/17 Last Taken 04/26/17 08:00] Medical - DS: Hosp Hospital course: Ms. Jaquez is a 71 year old F April 26, 2017: History of present illness: Ms. Jaquez is a 71 year old female with a history of significant obesity, who was trying to open her gait today, while also keeping the dog inside the gait, and ended up tripping and falling. She landed on her right side, and had immediate pain. She was brought to the emergency room where a comminuted right humerus fracture was diagnosed. It was quite severely displaced. The ER talked with Dr. Valadez of orthopedics. He thought she could just be sent home in a shoulder brace and follow-up with orthopedics on Tuesday. However, the patient was in so much pain, that they did sedation in the ER and reduced the fracture, and then put her in a brace. She tolerated the procedure fine, but has not been able to keep her oxygen saturation above 90% on room air since she received narcotics. The ER held her for 3 hours, but her O2 saturations are still quite low, so she is now admitted for observation. The patient tells me that she has often had trouble with her oxygen levels after anesthesia, in the past. Otherwise, she says she has been feeling pretty well. She denies recent fever or chills, headaches or dizziness, new eye or ear symptoms. She reports that she is "chronically shaky". She denies sore throat or cough. She does have chronic dyspnea on exertion, which is unchanged. She denies chest pain or palpitations. She denies abdominal pain, nausea or vomiting. She reports she has IBS, so has alternating constipation and diarrhea. She denies dysuria. April 27: Hospital course: -This morning, the patient is a bit more comfortable. She is more awake now, and seems to be oxygenating well. -She is still having significant pain of her shoulder is moved at all, so did receive oral Percocet. She is now complaining that she is feeling a little itchy all over. She rates her current pain as about 6 out of 10. Nurses note that she has a great deal of difficulty with movement. She needs assistance to stand up, but can walk when she is standing. She needs a lot of assistance, and has a lot of pain if she tries to bathe or dress herself. She does have one leg that is longer than the other, and says that this always puts her little bit off balance. Otherwise, she denies fever or chills, headaches or dizziness, chest pain or shortness of breath, abdominal pain, nausea or vomiting, dysuria. Exam: sHe is afebrile. Vital signs are normal, although oxygen saturation ranges from 91% on room air to 94% on 2 L. Neck is supple without obvious lymphadenopathy. Cardiac exam shows regular rate and rhythm. Lungs: Decreased breath sounds at the bases, but otherwise are generally clear. Abdomen is soft and nontender. Extremities: Lower extremities show no significant edema. Right arm is held close to her chest with the shoulder sling. She has significant amount of discomfort if her arm is manipulated in any way. Neurologic exam: Is grossly nonfocal. A/P Narrative: #1. Pulmonary. Patient presents with persistent hypoxia on room air, after receiving sedation in the emergency room to reduce a humerus fracture. It has been several hours since she was last medicated, but we cannot keep her O2 sats above 90%. Respiratory rate is a bit low, but otherwise there is no obvious reason for this. Given her body habitus, I suspect she has obesity- hypoventilation syndrome, which is quite aggravated by sedatives. -Oxygenation appears back to normal today. 2. Right humerus fracture, after ground-level fall. -Orthopedic evaluation. Dr. Partida saw her today. He cannot get her on to the OR schedule until Tuesday, so she will be discharged home, to the care of her family, and return on Tuesday for shoulder surgery. -Patient is status post reduction. Continue shoulder immobilizer. -Pain meds as needed/tolerated. She can continue to use tramadol and Tylenol at home. I did give her a prescription for [place], if those are inadequate, but she should use this sparingly. Case management has met with her, and offered her solutions for extra help at home. Her son will take her home this evening. The family will keep a close eye on her for the next day and a half, until she comes back for her surgery. 3. CODE STATUS: It sounds like she wants full code, but would not want long- term life support. She says both her sister and her son will act as POA. 4. VT prophylaxis: Subcu heparin. 5. Renal. Patient appears mildly dehydrated. It was rehydrated. She should try to stay hydrated over the next couple of days. #6. GERD. Continue Prilosec. 7. Hypertension. Continue current medications, but hold the Aldactone, given that she looks a little dry . 8. Diffuse arthritis. Continue Celebrex, tramadol. Add Tylenol as needed [place] as needed 9. Hypothyroidism. Continue levothyroxine. 10. Depression and chronic pain. Continue sertraline. Approximately 40 minutes has been spent so far today, reviewing test results, interviewing and examining the patient, touching base with orthopedics, reviewing plan of care with staff, and writing orders. Discharge diagnosis: The post anesthesia hypoxia. Right humerus fracture. Dehydration. - Time Spent with Patient Total time spent providing and/or coordinating discharge services: Greater than 30 minutes Medical - DS: Exam - Constitutional Vitals: Vital Signs Temp Pulse Resp BP Pulse Ox 04/27/17 15:30 93 04/27/17 15:28 97.5 F 20 118/69 93 04/27/17 12:00 98.9 F 20 133/78 94 04/27/17 07:23 91 04/27/17 07:00 20 91 04/27/17 06:13 98.6 F 20 112/73 94 04/27/17 04:00 98.7 F 63 20 121/77 93 04/27/17 03:55 88 L 04/27/17 01:50 92 04/26/17 23:19 92 04/26/17 23:18 92 04/26/17 23:11 97.6 F 89 16 113/73 93 04/26/17 20:20 95 04/26/17 20:19 98.2 F 70 16 146/82 95 Intake and Output 04/27/17 04/27/17 04/27/17 05:59 13:59 21:59 Intake Total 400 / 400 1240 / 1240 Output Total 500 / 500 550 / 550 1125 / 1125 Balance -100 / -100 690 / 690 -1125 / -1125 Intake: IV 1000 / 1000 Sodium Chloride 0.45% 1, 1000 / 1000 000 ml @ 75 mls/hr IV . [id number] [facility] Rx#:[id number] Oral 400 / 400 240 / 240 Output: Void Amount 500 / 500 550 / 550 1125 / 1125 Other: Meal Breakfast Percent of Meal Consumed 100% Feeding Ability Independent Medical - DS: Data Labs on day of discharge: Labs from last 24 hours 04/27/17 04/27/17 04/26/17 04:22 04:22 20:40 WBC 7.9 RBC 3.85 L Hgb 11.9 L Hct 35.0 L MCV 90.9 MCH 30.9 MCHC 34.0 RDW 14.2 Plt Count 135 L MPV 11.0 H Gran % 70.3 Lymph % (Auto) 18.3 Rains % (Auto) 9.3 Eos % (Auto) 1.8 Baso % (Auto) 0.3 Gran # 5.6 Lymph # (Auto) 1.4 L Rains # (Auto) 0.7 Eos # (Auto) 0.1 Baso # (Auto) 0 Sodium 138 Potassium 4.7 Chloride 104 Carbon Dioxide 23 Anion Gap 11.0 BUN 27 H Creatinine 1.0 GFR Calculation 57 Glucose 115 H Uric Acid 5.9 Calcium 10.0 Phosphorus 3.1 Magnesium 2.1 Total Bilirubin 1.2 H Direct Bilirubin 0.2 GGT 18 AST 14 ALT 13 Alkaline Phosphatase 85 Lactate Dehydrogenase 175 NT-Pro-B Natriuret Pep Total Protein 6.4 Albumin 3.9 Globulin 2.5 Albumin/Globulin Ratio 1.6 Triglycerides 129 Urine Color Yellow Urine Appearance Hazy Urine pH 5.0 Ur Specific [place] 1.018 Urine Protein Neg Urine Glucose (UA) Negative Urine Ketones 5/tr A Urine Occult Blood Neg Urine Nitrate Neg Urine Bilirubin Neg Urine Urobilinogen Neg Ur Leukocyte Esterase 25 A Urine RBC < 1 Urine WBC 6 H Ur Squamous Epith Cells 3 Ur Transition Epith Cell < 1 Urine Bacteria 0 Hyaline Casts 4 H Urine Mucus Few Ur Culture Indicated? Yes 04/26/17 20:37 WBC RBC Hgb Hct MCV MCH MCHC RDW Plt Count MPV Gran % Lymph % (Auto) Rains % (Auto) Eos % (Auto) Baso % (Auto) Gran # Lymph # (Auto) Rains # (Auto) Eos # (Auto) Baso # (Auto) Sodium Potassium Chloride Carbon Dioxide Anion Gap BUN Creatinine GFR Calculation Glucose Uric Acid Calcium Phosphorus Magnesium Total Bilirubin Direct Bilirubin GGT AST ALT Alkaline Phosphatase Lactate Dehydrogenase NT-Pro-B Natriuret Pep 211.1 H Total Protein Albumin Globulin Albumin/Globulin Ratio Triglycerides Urine Color Urine Appearance Urine pH Ur Specific [place] Urine Protein Urine Glucose (UA) Urine Ketones Urine Occult Blood Urine Nitrate Urine Bilirubin Urine Urobilinogen Ur Leukocyte Esterase Urine RBC Urine WBC Ur Squamous Epith Cells Ur Transition Epith Cell Urine Bacteria Hyaline Casts Urine Mucus Ur Culture Indicated? Preliminary micro results at discharge 04/26/17 20:40 Urine Culture - Preliminary Urine - Clean Void Mid-Stream April 26: Right humerus x-ray: Transversely oriented, severely comminuted fracture through the surgical neck with comminuted fracture extension throughout the humeral head with marked displacement. EKG: Shows probable sinus arrhythmia at a rate of about 90. Normal axis. No obvious acute ST-T changes Wrist x-ray: No risk fracture. Healing minimally displaced fracture of the fifth proximal phalanx. Repeat right hand limited 2 view x-ray: Obliquely oriented mildly angulated impaction fracture of the base of the fifth proximal phalanx of the healing callus, implying the fracture is subacute. Chest x-ray: Normal. ABG on 2 L oxygen mask: Shows pH of 7.32, PCO2 51, PO2 67, bicarb 26, O2 saturation 91% Medical - DS: A/P - Patient/Caregiver Discharge Instructions Activity: increase activity as tolerated, as instructed Diet: Low Sodium (2gm) Additional Instructions: 1. For your right shoulder fracture: -Try to keep your shoulder and arm in the brace at all times. -Use Celebrex and tramadol as before, for pain. Add Tylenol 500 mg 1-2 tablets every 8 hours as needed for extra pain control. If this is not adequate, and hydrocodone/APAP in place of the Tylenol, but be aware that this might also suppress your breathing. -You can also use ice packs or hot packs on your arm if that seems to give you comfort. -Return to the hospital on Tuesday, as directed by Dr. Partida, for surgery to repair your fracture. If you have not been contacted with an arrival time by , please call . #2. Dehydration On arrival yesterday your kidney function looks like you were a little behind on fluids. I would discontinue the spironolactone for now. Continue your other medications. Prescriptions: HYDROcodone/APAP 5/325MG [[place] 5/325Mg] 1 tab PO Q4HP PRN #30 tablet PRN Reason: Pain - Problem Maintenance (1) Fall as cause of accidental injury at home as place of occurrence Status: Acute (2) Hypoxia Status: Acute (3) Dehydration Status: Resolved (4) Humeral fracture Status: Acute Qualifiers: Encounter type: initial encounter Humerus Location: surgical neck Fracture type: closed Fracture morphology: 2-part Fracture alignment: displaced Laterality: right Qualified Code(s): S42.221A - 2-part displaced fracture of surgical neck of right humerus, initial encounter for closed fracture - Follow up Plan Follow up with: Sd Ugalde MD [Primary Care Provider] - Slim Anderson MD [Physician] - Disposition: Home, Self-Care Prognosis: Fair Rehab Potential: Fair I certify that the patient requires SNF services: No Overall status at discharge: patient is not back to baseline Medical - DS: Qual - VTE Deep Vein Thrombosis/Pulmonary Embolism Present on Admission: No
[2017-04-27] MEDS ORDERED: FLU VACC QS2017-18 36MOS UP/PF 60 MCG/0.5 ML SYRINGE IM ONE (17:00)
--- NOTE | 2017-04-27 17:15 | Consultation ---
DATE OF CONSULTATION: 04/27/2017 HISTORY OF PRESENT ILLNESS: This is a very pleasant 71-year-old female who was admitted to the hospital because of severe pain after a 4-part humerus fracture. She had her reduction put in line and is in an immobilizer. The patient is otherwise doing quite well. She talks, gives an excellent history of how she fell and injured the shoulder. She was seen in the emergency room and diagnosed appropriately with a 4-part proximal humerus fracture displaced with severe osteopenia. PAST MEDICAL HISTORY: She has been quite healthy otherwise. ALLERGIES: She does note allergies including AMOXICILLIN causing severe diarrhea, but no shortness of breath or severe rash. NARCOTICS cause some itching but otherwise she has NO TRUE ALLERGIES. SOCIAL HISTORY: She does not use tobacco. Unsure of use of alcohol. PHYSICAL EXAMINATION: GENERAL: Very pleasant 71-year-old female who is present with her daughter. Alert and oriented times 3. Mood and affect appropriate. Well-kept and groomed. She is mild to moderate pain, rating her pain about 5/10, but she feels much better than she did last night. She has tried to walk around with some limited mobility. Because of that, we have been trying to keep her nothing by mouth and wait for the implants to come, but she has been given a blood thinner. For that reason, surgery has been postponed until Tuesday. LUNGS: Clear to auscultation bilaterally. CARDIOVASCULAR EXAM: Regular rate and rhythm. No murmurs, rubs, or gallops. She is obese and overweight for her age and height. She is appropriate for age. Her feet are pink and warm. UPPER EXTREMITIES: Her hand moves with flexion and extension of fingers. Some difficulty with crossing the index to long finger, but no pain with passive range of motion. There is some bruising about the shoulder and swelling. It is quite significant. IMAGING: Her x-rays were reviewed. This does demonstrate a 4-part proximal humerus fracture with severe osteopenia. PLAN: The treatment I recommended is reverse total shoulder with a fracture stem. The patient agrees this would be the best. We talked about a plate. A plate would have a high failure rate given her bone quality and the degree of fracture of the head. With these, I have recommended reverse as the best optimal outcome. These do have risks. They can dislocate. They can wear out and loosen with time. She agrees to proceed and this will be done Tuesday and we will try to set this up. She understands the risks and benefits of such a surgery. She also understands not doing surgery carries a substantial risk that she would not be able to raise her arm given the fracture pattern involving the rotator cuff muscles on a broken attachment point to the greater tuberosity and lesser tuberosity. We will proceed Tuesday. She will be made nothing by mouth at midnight. She can be discharged to home at this point on an aspirin but no heparin or Lovenox. RBBrooke:tanner Job ID: [id number] Doc ID: [id number] Slim Anderson MD
[2017-04-27] MEDS ORDERED: amLODIPine 10 MG TABLET PO SCH (21:00)
[2017-04-27] MEDS ORDERED: POTASSIUM CHLORIDE 20 MEQ TABLET PO SCH (21:00)
[2017-04-27] MEDS ORDERED: LOSARTAN 50 MG TABLET PO SCH (21:00)
[2017-04-27] MEDS ORDERED: PRAVASTATIN 40 MG TABLET PO SCH (21:00)
[2017-04-27] MEDS ORDERED: OXYBUTYNIN CHLORIDE 5 MG TAB.XL.24H PO SCH (21:00)
[2017-04-27] MEDS ORDERED: LOSARTAN/HCTZ 100/25 TABLET PO SCH (21:00)
[2017-04-27] MEDS ORDERED: SIMVASTATIN 20 MG TABLET PO SCH (21:00)
[2017-04-27] MEDS ORDERED: CELECOXIB 200 MG CAPSULE PO SCH (21:00)
[2017-04-27] MEDS ORDERED: HYDROCHLOROTHIAZIDE 25 MG TABLET PO SCH (21:00)
== END 2017-04-27 18:00 | disposition home or self-care (01) ==
LOC: ED 13:34 → MEDSUR 13:34
PROVIDERS: ADMIT Internal Medicine; ATTEND Internal Medicine

== ENCOUNTER 2017-04-28 15:30 | Inpatient (IN) ==
[2017-04-28] MEDS ORDERED: SCOPOLAMINE 1 PATCH PATCH TOPICAL ONE (16:23)
[2017-04-28] MEDS ORDERED: FAMOTIDINE/PF 20 MG/2 ML VIAL IV ONE (16:27)
[2017-04-28] MEDS ORDERED: METOCLOPRAMIDE 10 MG/2 ML VIAL IV ONE (16:27)
[2017-04-28] MEDS ORDERED: ceFAZolin 1 GM VIAL IV SCH (17:45)
[2017-04-28] MEDS ORDERED: oxyCODONE 10 MG TAB.ER.12H PO SCH (17:45)
[2017-04-28] MEDS ORDERED: PREGABALIN 75 MG CAPSULE PO SCH (17:45)
[2017-04-28] MEDS ORDERED: CELECOXIB 200 MG CAPSULE PO SCH ×2 (17:45→21:00)
[2017-04-28] MEDS ORDERED: PROPOFOL 200 MG/20 ML VIAL IV ONE (18:13)
[2017-04-28] MEDS ORDERED: GLYCOPYRROLATE 0.2 MG/ML VIAL IV ONE (18:13)
[2017-04-28] MEDS ORDERED: LIDOCAINE HCL/PF 100 MG/5 ML SYRINGE IV ONE (18:13)
[2017-04-28] MEDS ORDERED: ONDANSETRON 4 MG/2 ML VIAL ONE (18:13)
[2017-04-28] MEDS ORDERED: SUCCINYLCHOLINE 20 MG/ML ML IV ONE (18:13)
[2017-04-28] MEDS ORDERED: METOPROLOL TARTRATE 5 MG/5 ML VIAL IV ONE (18:13)
[2017-04-28] MEDS ORDERED: KETAMINE 10 MG/ML ML ONE (18:13)
[2017-04-28] MEDS ORDERED: HYDROmorphone 2 MG/ML SYRINGE ONE (18:13)
[2017-04-28] MEDS ORDERED: MIDAZOLAM 2 MG/2 ML VIAL ONE (18:13)
[2017-04-28] MEDS ORDERED: ONDANSETRON 4 MG/2 ML VIAL IV PRN ×3 (19:28→21:31)
[2017-04-28] MEDS ORDERED: diphenhydrAMINE 50 MG/ML VIAL IV PRN ×2 (19:28→21:31)
[2017-04-28] MEDS ORDERED: IPRATROPIUM/ALBUTEROL 3 ML AMPUL.NEB NEB PRN ×2 (19:28→21:31)
[2017-04-28] MEDS ORDERED: BENZOCAINE/MENTHOL 1 LOZENGE PO PRN ×3 (19:28→21:31)
[2017-04-28] MEDS ORDERED: HYDROmorphone 2 MG/ML SYRINGE IV PRN ×3 (19:28→21:31)
[2017-04-28] MEDS ORDERED: METOCLOPRAMIDE 10 MG/2 ML VIAL IV PRN ×2 (19:28→21:31)
[2017-04-28] MEDS ORDERED: fentaNYL 100 MCG/2 ML VIAL IV PRN ×2 (19:28→21:31)
[2017-04-28] MEDS ORDERED: METHOCARBAMOL 1,000 MG/10 ML VIAL IV PRN ×2 (19:28→21:31)
[2017-04-28] MEDS ORDERED: KETOROLAC 15 MG/ML VIAL IV PRN ×2 (19:28→20:57)
[2017-04-28] MEDS ORDERED: METOPROLOL TARTRATE 5 MG/5 ML VIAL IV PRN ×2 (19:28→21:31)
[2017-04-28] MEDS ORDERED: LACTATED RINGERS 1,000 ML IV SCH ×2 (19:30→21:45)
[2017-04-28] MEDS ORDERED: GENTAMICIN SULFATE 800 MG/20 ML VIAL IR ONE (19:51)
[2017-04-28] MEDS ORDERED: HYDROcodone/APAP 10/325MG TABLET PO PRN (20:57)
[2017-04-28] MEDS ORDERED: MAGNESIUM HYDROXIDE 30 ML ORAL.SUSP PO PRN (20:57)
[2017-04-28] MEDS ORDERED: POLYETHYLENE GLYCOL 3350 17 GM PACKET PO PRN (20:57)
[2017-04-28] MEDS ORDERED: TEMAZEPAM 15 MG CAPSULE PO PRN (20:57)
[2017-04-28] MEDS ORDERED: BISACODYL 10 MG SUPP.RECT PR PRN (20:57)
[2017-04-28] MEDS ORDERED: oxyCODONE/APAP 5/325MG TABLET PO PRN (20:57)
[2017-04-28] MEDS ORDERED: FLEETS ADULT ENEMA PR PRN (20:57)
[2017-04-28] MEDS ORDERED: TRANEXAMIC ACID 1,000 MG/10 ML VIAL IV SCH (20:57)
[2017-04-28] MEDS ORDERED: ACETAMINOPHEN 325 MG TABLET PO PRN (20:57)
--- NOTE | 2017-04-28 20:57 | Brief Operative Note ---
Date of procedure: 04/28/17 Pre-op diagnosis: right prox humerus 4 part fx Post-op diagnosis: same Procedure: right reverse tsa and orif of 4 part fx and bicep tenodesis Grafts/Implants: Yes Anesthesia: GETA Complications Description: 04/28/17 20:56 none Surgeon: Slim Anderson Estimated blood loss (cc): 150 Specimens Removed/Pathology: none sent Condition: stable Disposition: PACU
[2017-04-28] MEDS ORDERED: SERTRALINE 100 MG TABLET PO SCH (21:00)
[2017-04-28] MEDS ORDERED: traMADol 50 MG TABLET PO SCH (21:00)
[2017-04-28] MEDS ORDERED: SENNOSIDES 1 TABLET PO SCH (21:00)
[2017-04-28] MEDS: MEPERIDINE 25 MG/ML SYRINGE IV PRN (21:15)
[2017-04-28] MEDS ORDERED: MEPERIDINE 25 MG/ML SYRINGE IV PRN (21:31)
[2017-04-28] MEDS: 0.45 % SODIUM CHLORIDE 1,000 ML IV SCH (22:15)
[2017-04-28] MEDS: ACETAMINOPHEN 1,000 MG/100 ML BOTTLE IV SCH (22:20)
[2017-04-28] MEDS: 0.9 % SODIUM CHLORIDE 10 ML SYRINGE IV SCH (22:23)
[2017-04-29] MEDS: DOCUSATE SODIUM 100 MG CAPSULE PO SCH ×2 (00:56→11:04)
[2017-04-29] MEDS ORDERED: ceFAZolin 1 GM VIAL ONE (03:13)
[2017-04-29] MEDS: ACETAMINOPHEN 1,000 MG/100 ML BOTTLE IV SCH ×2 (05:52→06:43)
[2017-04-29] MEDS: 0.9 % SODIUM CHLORIDE 10 ML SYRINGE IV SCH (06:38)
[2017-04-29] MEDS: 0.45 % SODIUM CHLORIDE 1,000 ML IV SCH (06:44)
--- NOTE | 2017-04-29 07:02 | Orthopedic Progress Note ---
Subjective Patient information: Note initiated : 04/29/17 at 7:01 am Service Date, if different from initiated Date: [] Patient: Selena Jaquez 71 y/o F admitted on 04/28/17 for Right Reverse Total Shoulder Arthroplasty. Chief Complaint: minimal pain and no nausea and vomiting[] Objective Vital signs: Vital Signs Temp Pulse Resp BP Pulse Ox 04/29/17 05:52 97 F 04/29/17 04:00 97 F 84 17 111/76 92 04/29/17 01:00 97 F 80 17 111/73 90 04/28/17 23:30 97.8 F 78 16 128/80 97 04/28/17 23:05 97 F 04/28/17 23:00 97.8 F 82 16 108/71 96 04/28/17 22:45 97.8 F 79 16 118/57 96 04/28/17 22:30 97.8 F 83 14 110/62 96 04/28/17 22:20 97.5 F 04/28/17 22:12 97.5 F 81 12 124/71 94 04/28/17 21:52 98.2 F 80 16 125/44 94 04/28/17 21:45 78 16 147/90 94 04/28/17 21:30 82 14 138/87 94 04/28/17 21:20 85 14 144/72 94 04/28/17 21:10 97.2 F 89 20 162/79 94 04/28/17 16:03 98.9 F 79 18 146/88 93 Intake and Output 04/28/17 04/29/17 04/29/17 21:59 05:59 13:59 Intake Total 1999 650 / 650 100 / 100 Output Total 340 / 340 Balance 1999 310 / 310 100 / 100 Intake: IV 1999 200 / 200 100 / 100 Oral 450 / 450 Output: Void Amount 340 / 340 Other: Weight 265 lb 274 lb Intake & Output: Intake & Output 04/28/17 04/29/17 04/29/17 21:59 05:59 13:59 Intake Total 1999 650 / 650 100 / 100 Output Total 340 / 340 Balance 1999 310 / 310 100 / 100 Weight 265 lb 274 lb Intake: IV 1999 200 / 200 100 / 100 Oral 450 / 450 Output: Void Amount 340 / 340 Incision: Yes healing Incision clean and dry: Yes Dressing: Yes clean Weight bearing status: full Neurological exam IM: Yes oriented X3, Yes neurovascular intact Extremities exam IM: Yes Foot pink and warm (DC HOME), Yes neurovascular intact - Labs Labs: Orthopedic Labs 04/28/17 16:10 PT 13.6 INR 1.0 APTT 32
--- NOTE | 2017-04-29 07:04 | Discharge Summary ---
Ortho Discharge - TSA - Patient Instructions Diet: Regular Diet Activity: activity as tolerated, weight bearing as tolerated Total Shoulder Protocol: Leave immobilizer in place except for bathing and ROM. Abduction pillow. Continue to wear sling until seen by physician. Codman Pendulum : These exercises use momentum produced by your body to move your shoulder joint. Bend your knees and shift your weight to your front leg, then back, allowing your arm to swing in the same directions. Using the same technique, alternately shift your weight between your right and left legs, allowing your arm to swing from side to side. These exercises are also performed in counterclockwise and clockwise circular motions. Typically these exercises are performed several times per day, for a set number repetitions or minutes, such as 20 times in a row or 5 minutes at a time. Dressing Care: Aquacel Ag - leave on for 5 days - Follow Up Plan Disposition: Home, Self-Care Prognosis: Good Rehab Potential: Good I certify that the patient requires SNF services: No Overall status at discharge: patient is progressing back to baseline - Orders For Discharge Additional Discharge Orders: Physical Therapy at Discharge - TKA Location: Determined By Patient Physical Therapy at Discharge - TSA Location: Determined By Patient Brace/Splint Location: Determined By Patient Toilet Riser Discharge Order Location: Determined By Patient
[2017-04-29] MEDS ORDERED: LEVOTHYROXINE 100 MCG TABLET PO SCH (07:30)
[2017-04-29] MEDS ORDERED: OMEPRAZOLE 20 MG CAPSULE PO SCH (07:30)
--- NOTE | 2017-04-29 07:38 | XRay Report ---
CLINICAL INFORMATION: Post-OP Total Shoulder COMPARISON: Preoperative films from 04/26/2017 FINDINGS: Total shoulder prostheses is now in place which is anatomically aligned. Acromioclavicular joint is normal. IMPRESSION: Total shoulder prostheses - anatomic alignment Interpreted and Authenticated by: Brandon Díaz 04/29/17
[2017-04-29] MEDS ORDERED: POTASSIUM CHLORIDE 10 MEQ TABLET PO SCH (08:00)
--- NOTE | 2017-04-29 08:36 | Operative Note ---
DATE OF OPERATION: 04/28/2017 PREOPERATIVE DIAGNOSIS: Right shoulder 4-part humerus fracture. POSTOPERATIVE DIAGNOSIS: Right shoulder 4-part humerus fracture. PROCEDURE: Right reverse total shoulder with open reduction and internal fixation of 4-part humerus fracture, reverse total shoulder, and biceps tenodesis. SURGEON: Slim Anderson MD SAWMILL RELIEF WORKER: Joe Sosa PA-C ANESTHESIA: General LMA anesthesia. COMPLICATIONS: None. DESCRIPTION OF PROCEDURE: The patient was brought to the operating room and put to sleep with general LMA anesthesia. Once asleep, we confirmed the operative site to be the right side with initials, x-rays and the timeout and consent form. We then placed Ioban over the skin and sterilely prepped and draped the right upper extremity and made a deltopectoral approach. Cephalic vein was retracted laterally with the deltoid as well as with retractors. We had identified the conjoined tendon, which was retracted medially and then I tagged the lesser tuberosity and the greater tuberosity with #2 Ethibond. We then removed the humeral head which was a separate fragment and then irrigated. We subluxed the head posteriorly, released the capsule 360 degrees with removal of the biceps tendon. Biceps tendon was tenodesed to the pectoralis major with 2 figure-of-8 stitches. Once this was done, I then placed a pin centrally on the glenoid and reamed up to the size 36 head and then placed a metaglene with a central screw measuring 36 mm central screw, 4 screws around the glenoid measured 36, 32 and 16 and then we placed a 36 mm glenosphere with 6 mm of offset, 2 mm of eccentricity. Once this was done, I then prepared the humerus. This was broached up to a size 9 and then an 11. We then trialed the size 11 stem with 4, 6 and 8 poly. The 8 seemed to be the most appropriate with the landmarks of 20 mm retroversion and the top line on the depth. We then opened up and after preparing the canal we cemented in a cementless stem, a size 11. This sat very nicely at the pre-prescribed line, 20 degrees retroversion. Excess cement was removed. Once this was well fixed, we then placed the head, +4 poly and then we passed the stitches through the fin. These were #5 Ethibond. These were passed through the fin as well as the greater tuberosity and the capsule just medial to the posterior superior tuberosity and these were passed through the lesser tuberosity and also three stitches were tied together. Once these were tied, we bone grafted in and around the stem. We then placed two more stitches around the tuberosities to completely connect these to the brenda. We had predrilled two holes for #2 Ethibond that was placed through the superior portion of the supraspinatus and near the attachment point on the greater tuberosity. This was tied and the interval closed with one stitch right at the greater tuberosity level. Once these were all tied into place and excellent fixation achieved, we irrigated and moved the shoulder in unison to confirm its placement. We then irrigated. We then also closed the deltopectoral interval with #2 Vicryl and closed the skin with 2-0 Vicryl and adhesive closure. Sterile bandage was applied, Donjoy sling fitted and given to the patient. Blood loss was about 150 mL. RBH:ashley Job ID: [id number] Doc ID: [id number] Slim Anderson MD
[2017-04-29] MEDS ORDERED: SERTRALINE 50 MG TABLET PO SCH ×2 (09:00→21:00)
[2017-04-29] MEDS ORDERED: LOSARTAN 50 MG TABLET PO SCH (09:00)
[2017-04-29] MEDS ORDERED: HYDROCHLOROTHIAZIDE 25 MG TABLET PO SCH (09:00)
[2017-04-29] MEDS ORDERED: SIMVASTATIN 20 MG TABLET PO SCH (21:00)
[2017-04-29] MEDS ORDERED: OXYBUTYNIN CHLORIDE 5 MG TAB.XL.24H PO SCH (21:00)
[2017-04-30] MEDS ORDERED: ceFAZolin 1 GM VIAL IV SCH (02:00)
== END 2017-04-29 11:45 | disposition home or self-care (01) | DRG 483 ==
LOC: MEDSUR 15:30
PROVIDERS: ADMIT Orthopaedic Surgery; ATTEND Orthopaedic Surgery

== ENCOUNTER 2020-07-31 19:01 | Inpatient (IN) ==
[2020-07-31] MEDS ORDERED: DEXAMETHASONE 10 MG/ML VIAL IV ONE (19:30)
--- NOTE | 2020-07-31 19:32 | Emergency Department Note ---
HPI General Chief complaint: Cold/Flu Symptoms Stated complaint: weakness, diarrhea, fatigue Time Seen by Provider: 07/31/20 19:18 Source: patient and RN notes reviewed Mode of arrival: wheelchair Limitations: no limitations History of Present Illness HPI Narrative: Narrative: This patient comes in for Covid symptoms and some difficulty breathing and has an O2 saturation of 79%. She was Covid positive on testing July 17 and today is the . She came in on the and was given 3 days of ivermectin which she has taken. Despite that she has continued to deteriorate and feels a little short of breath with slight cough some diarrhea and slight nausea. Also weakness in general aches and pains. Related Data Home Medications Medication Instructions Recorded Confirmed diphenhydramine HCl 25 mg PO Q6HP PRN 04/26/17 06/25/20 iron PO 09/05/17 06/25/20 acetaminophen 500 mg tablet 500 mg PO BID PRN tab 06/23/20 07/23/20 calcium carbonate 600 mg (1,500 1 tab PO QDAY 06/23/20 07/23/20 mg)-vitamin D3 200 unit tablet oxycodone-acetaminophen 5 mg-325 1 tab PO BID PRN tab 06/23/20 07/23/20 mg tablet potassium chloride 10 mEq 15 meq PO QDAY tab 06/23/20 06/25/20 tablet,extended release hydrochlorothiazide 25 mg tablet 25 mg PO QDAY tab 06/25/20 07/23/20 levothyroxine 100 mcg tablet 88 mcg PO QDAY tab 06/25/20 07/23/20 losartan 100 mg tablet 100 mg PO QDAY tab 06/25/20 07/23/20 nystatin 100,000 unit/gram topical 1 applic TOPICAL BID PRN 06/25/20 06/25/20 powder primidone 50 mg tablet 50 mg PO QDAY tab 06/25/20 07/23/20 tramadol 50 mg tablet 50 mg PO BID tab 06/25/20 07/23/20 Previous Rx's Medication Instructions Recorded omeprazole 20 mg capsule,delayed 20 mg PO QDAY #90 cap 08/09/17 release celecoxib 200 mg capsule 200 mg PO QHS #30 cap 10/20/17 pravastatin 40 mg tablet 40 mg PO QHS #90 tab 10/24/17 sertraline 100 mg tablet 200 mg PO QHS #180 tab 12/30/17 spironolactone 25 mg tablet 25 mg PO BID #180 tab 03/23/18 oxybutynin chloride 10 mg 10 mg PO QHS #90 tab 04/24/18 tablet,extended release 24 hr ivermectin 21 mg PO ONCE #21 tab 07/23/20 ondansetron 4 mg PO Q6H PRN #10 tab 07/23/20 Allergies Allergy/AdvReac Type Severity Reaction Status Date / Time clavulanic acid Allergy Intermediate Unknown Verified 07/23/20 02:42 [From Augmentin] iodine Allergy Intermediate Skin Verified 07/23/20 02:42 Reaction Amoxicillin AdvReac Mild Diarrhea Verified 07/23/20 02:42 codeine AdvReac Mild Migraine Verified 07/23/20 02:42 Review of Systems ROS ROS Narrative: Narrative: All systems ED: reviewed and negative except as stated. [facility] Narrative Patient History Narrative: Narrative: Medical/Surgical/Family History All Active Problems (Updated 07/31/20 @ 21:32 by Jose Luis Cosby MD) Gastroenteritis due to 2019 novel coronavirus (Acute) Pneumonia due to 2019 novel coronavirus (Acute) Acute viral syndrome (Acute) COVID-19 (Acute) Chronic kidney disease (CKD) stage G3b/A1, moderately decreased glomerular filtration rate (GFR) between 30-44 mL/min/1.73 square meter and albuminuria creatinine ratio less than 30 mg/g (Chronic) Kyphosis (Chronic) Tremor (Chronic) History of surgery (Chronic ~10/05/19) Calculus of kidney and ureter (Chronic) Urinary tract infection (Chronic) Pneumonia (Chronic) Cystic thyroid nodule (Chronic) Influenza A (Chronic) Hypokalemia, excessive renal losses (Chronic) Tinea corporis (Chronic) Symptoms of urinary tract infection (Chronic) Lumbar spine strain (Chronic) Cervical strain (Chronic) Scalp contusion (Chronic) Dehydration (Chronic) Hypoxia (Chronic) Fall as cause of accidental injury at home as place of occurrence (Chronic) Humeral fracture (Chronic) Leg wound, left (Chronic) Joint pain (Chronic) Adnexal pain (Chronic) Endometrial hyperplasia (Chronic) Cervical polyp (Chronic) Intention tremor (Chronic) Shoulder joint pain (Chronic) Parathyroid adenoma (Chronic) Primary hyperparathyroidism (Chronic) Chronic kidney disease, stage 3 (Chronic) Hematuria (Chronic) Hydroureter (Chronic) History of ureter stent (Chronic 10/09/13) Postmenopausal bleeding (Chronic) Sinusitis (Chronic) Urinary incontinence, urge (Chronic 03/26/13) Ureteral calculus (Chronic 10/08/13) Pain in joint, shoulder region (Chronic) Major depressive disorder in remission (Chronic) Hypertension, essential (Chronic) Hyperlipidemia (Chronic) Cervical disc disease with myelopathy (Chronic 04/30/14) Back pain (Chronic) Medical History (Updated 07/31/20 @ 21:32 by Jose Luis Cosby MD) Abnormal urine finding (Resolved) elevated urine constitute, calcium Abnormal urine finding (Resolved) Elevated urine constitute, uric acid Adnexal pain (Chronic) Back pain (Chronic) Calculus of kidney and ureter (Chronic) Cellulitis (Resolved) Right lower extremity cellulitis Cervical disc disease with myelopathy (Chronic 04/30/14) use tramadol prn Cervical polyp (Chronic) Cervical strain (Chronic) Chronic kidney disease, stage 3 (Chronic) Cystic thyroid nodule (Chronic) Dehydration (Chronic) Endometrial hyperplasia (Chronic) Fall as cause of accidental injury at home as place of occurrence (Chronic) Flank pain (Resolved) Hematuria (Chronic) Humeral fracture (Chronic) Hydroureter (Chronic) Ureteric Obstruction Hyperlipidemia (Chronic) Hypertension, essential (Chronic) Hypokalemia (Resolved) Hypokalemia (Resolved) Hypokalemia, excessive renal losses (Chronic) Hypoxia (Chronic) Influenza A (Chronic) Intention tremor (Chronic) Joint pain (Chronic) Kidney calculus (Resolved 04/22/14) Left side Kyphosis (Chronic) Leg wound, left (Chronic) Lumbar spine strain (Chronic) Major depressive disorder in remission (Chronic) Nausea (Resolved) Pain in joint, shoulder region (Chronic) 2011 Fractured upper humerus-conservatively treated Parathyroid adenoma (Chronic) Pneumonia (Chronic) Postmenopausal bleeding (Chronic) Primary hyperparathyroidism (Chronic) Renal calculi (Resolved 10/08/13) Scalp contusion (Chronic) Shoulder joint pain (Chronic) Sinusitis (Chronic) Symptoms of urinary tract infection (Chronic) Tinea corporis (Chronic) Tremor (Chronic) Ureteral calculus (Chronic 10/08/13) Urinary incontinence, urge (Chronic 03/26/13) Urinary tract infection (Chronic) leukocytes, hematuria noted on urine dipstick today Viral syndrome (Resolved) Surgical History (Updated 07/23/20 @ 03:10 by Micah Dean MD) H/O cystoscopy (Resolved 10/09/13) H/O lithotripsy (Resolved 05/07/14) Cystoscopy, placement of 6 x 26 Polaris Loop stent and LT ESWL H/O sinus surgery (Resolved ~1999) H/O tubal ligation (Resolved ~1990) H/O: hemorrhoidectomy (Resolved ~1988) History of intravascular stent placement (Resolved 08/07/13) 6 x 26 Polaris Loop Stent History of partial thyroidectomy (Acute) History of surgery (Chronic ~10/05/19) Fragmenting of kidney stone History of ureter stent (Chronic 10/09/13) Right ureteroscopy with laser of stone and placement of stent. Family History Aunt Malignant neoplasm of brain Grandmother-maternal Malignant neoplasm of brain Mother Diabetes mellitus Myocardial Infarction Malignant neoplasm of stomach Grandfather-maternal Myocardial Infarction Social History Smoking Status: Never smoker Alcohol Intake Frequency: a few times a week Exam Narrative Narrative: Narrative: General Limitations: no limitations Head Head: Present atraumatic, normocephalic and normal inspection Eye Eye: Present normal appearance and EOMI; Absent scleral icterus and conjunctival injection ENT ENT: Present normal exam, normal oropharynx and mucous membranes moist Neck Neck: Present normal inspection and full ROM Chest Chest: Present normal inspection and symmetric chest wall rise Respiratory Respiratory: Present rales/crackles Cardiovascular Cardiovascular: Present regular rate, normal rhythm and normal heart sounds Adbominal Abdominal: Present soft; Absent distention and tenderness Extremities Extremities: Present normal inspection and full ROM; Absent pedal edema and pretibial edema Neurological Neurological: Present alert Psychiatric Psychiatric: Present normal affect Skin Skin: Present warm (WNL) and dry; Absent diaphoresis Course Vital Signs Vital signs: Vital Signs Temperature 97.7 F 07/31/20 19:04 Pulse Rate 87 07/31/20 19:04 Respiratory Rate 16 07/31/20 19:04 Blood Pressure 132/74 07/31/20 19:04 Pulse Oximetry (%) 92 07/31/20 19:04 Temperature 97.7 F 07/31/20 19:04 Pulse Rate 83 07/31/20 21:01 Respiratory Rate 18 07/31/20 21:01 Blood Pressure 109/60 07/31/20 21:01 Pulse Oximetry (%) 94 07/31/20 21:01 MDM MDM Narrative Medical decision making narrative: Narrative: Patient was given Decadron 10 mg IV and remdesivir 200 mg IV. Discussed the case with Dr. Calix and she will be admitted to the hospital. Lab Data Lab results reviewed: Yes I reviewed the patient's lab results. Lab results narrative: Lab work was not too remarkable and GFR was 63. Result diagrams: 07/31/20 19:30 07/31/20 19:30 Labs: Lab Results 07/31/20 07/31/20 07/31/20 Range/Units 19:30 19:30 19:30 WBC 4.3 L (4.5-11.0) K/mcL RBC 3.75 L (4.00-5.20) M/mcL Hgb 11.4 L (12.0-15.0) g/dL Hct 33.3 L (36.0-48.0) % MCV 88.8 (80.0-100.0) fL MCH 30.4 (26.0-34.0) pg MCHC 34.2 (31.0-36.0) g/dL RDW 14.2 (11.5-14.5) % Plt Count 159 (140-440) K/mcL MPV 11.9 H (7.4-10.4) fL Neut % (Auto) 73.9 (38.0-78.0) % Lymph % (Auto) 15.9 (15.0-49.0) % Smith % (Auto) 7.9 (1.0-12.0) % Eos % (Auto) 2.1 (0.0-7.0) % Baso % (Auto) 0.2 (0.0-2.0) % Lymph # (Auto) 0.68 L (1.50-4.80) K/mcL Smith # (Auto) 0.34 (0.10-0.90) K/mcL Eos # (Auto) 0.09 (0.00-0.70) K/mcL Baso # (Auto) 0.01 (0.00-0.20) K/mcL Absolute Neutrophils 3.17 (1.80-8.00) K/mcL VBG Lactic Acid 1.2 (0.5-2.0) mmol/L Sodium 134 (133-145) mmol/L Potassium 3.3 (3.3-5.1) mmol/L Chloride 93 L (96-108) mmol/L Carbon Dioxide 28 (22-30) mmol/L Anion Gap 13.0 (8.0-16.0) BUN 21 (8-23) mg/dL Creatinine 0.9 (0.6-1.1) mg/dL GFR Calculation 63 Glucose 114 H (70-105) mg/dL Calcium 8.2 L (8.6-10.4) mg/dL Total Bilirubin 1.0 (0.1-1.0) mg/dL AST 30 (<32) U/L ALT 18 (<40) U/L Alkaline Phosphatase 85 (39-117) U/L Total Protein 6.8 (5.9-8.4) gm/dL Albumin 3.0 L (3.2-5.2) gm/dL Globulin 3.8 H (2.2-3.7) gm/dL Albumin/Globulin Ratio 0.8 L (1.0-2.3) Radiology Data Radiology results reviewed: Yes I reviewed the patient's radiology results. Radiology results narrative: Chest x-ray does show infiltrates consistent with Covid. Discharge Plan Patient/Caregiver Discharge Instructions Pt seen by SPECIAL EDUCATION TEACHING ASSISTANT/PA only: No Clinical Impression: COVID-19, Pneumonia due to 2019 novel coronavirus Patient Disposition: Xfer As Inpt ([facility]) Follow up with: Sd Ugalde MD [Primary Care Provider] - Prescriptions: No Action omeprazole 20 mg capsule,delayed release(DR/EC) 20 mg PO QDAY Qty: 90 RF: 3 pravastatin 40 mg tablet 40 mg PO QHS Qty: 90 RF: 3 sertraline 100 mg tablet 200 mg PO QHS Qty: 180 RF: 3 spironolactone 25 mg tablet 25 mg PO BID Qty: 180 RF: 3 oxybutynin chloride 10 mg tablet extended release 24hr 10 mg PO QHS Qty: 90 RF: 3 iron PO RF: 0 celecoxib 200 mg capsule 200 mg PO QHS Qty: 30 RF: 12 acetaminophen 500 mg tablet 500 mg PO BID PRN (Reason: Headache) RF: 0 calcium carbonate-vitamin D3 [Calcium 600 + D(3)] 600 mg(1,500mg) -200 unit tablet 1 tab PO QDAY RF: 0 potassium chloride [Klor-Con 10] 10 mEq tablet extended release 15 meq PO QDAY RF: 0 oxycodone-acetaminophen 5-325 mg tablet 1 tab PO BID PRN (Reason: Pain, Moderate) RF: 0 tramadol 50 mg tablet 50 mg PO BID RF: 0 hydrochlorothiazide 25 mg tablet 25 mg PO QDAY RF: 0 losartan 100 mg tablet 100 mg PO QDAY RF: 0 primidone 50 mg tablet 50 mg PO QDAY RF: 0 nystatin 100,000 unit/gram powder 1 applic TOPICAL BID PRNRF: 0 levothyroxine 100 mcg tablet 88 mcg PO QDAY RF: 0 diphenhydramine HCl 25 MG capsule 25 mg PO Q6HP PRN (Reason: Allergy Symptoms) RF: 0 ivermectin 3 mg tablet 21 mg PO ONCE Qty: 21 RF: 0 ondansetron 4 mg tablet,disintegrating 4 mg PO Q6H PRN (Reason: nausea and vomiting) Qty: 10 RF: 0
--- NOTE | 2020-07-31 20:03 | Internal Med History&Physical ---
HPI History of Present Illness Patient information: Note initiated : 07/31/20 at 8:03 pm Service Date, if different from initiated Date: [] Patient: Selena Jaquez a 74 y/o F admitted on for weakness, diarrhea, fatigue. Chief Complaint: History of present illness: Ms. Jaquez is a 74 year old F with history of hypertension/anxiety/hyperlipidemia and GERD who lives in a trailer home along with her son and has been feeling sick for the last couple of weeks since she was diagnosed with COVID-19 on July 17. She has had 2 ER visit on July 21 on with symptoms of diarrhea, malaise weakness and gradually getting lethargic unable to function. She was discharged home on ivermectin/zinc and advised conservative management as patient did not show any symptoms of Covid pneumonia. Over the last 3 days she has been getting increasingly dyspneic. Diarrhea has continued along with generalized myalgia/malaise. With increasing concerns she asked her son to bring her to the ER. Initial work-up was consistent with severe hypoxia requiring 4 L oxygen to maintain sats above 90. Chest x-ray bilateral infiltrates. Patient was started on steroids. Hospitalist service was consulted. At the time of my evaluation patient is anxious and lethargic but able to answer most the question endorses history as above. She endorses to loss of appetite but denies headache, photophobia or neck stiffness. She endorses to sick contacts including family members Review of systems 10 point review system was performed and is negative except for ones discussed above PFSH PFSH All Active Problems (Updated 07/23/20 @ 03:12 by Mciah Dean MD) Gastroenteritis due to 2019 novel coronavirus (Acute) Acute viral syndrome (Acute) COVID-19 (Acute) Chronic kidney disease (CKD) stage G3b/A1, moderately decreased glomerular filtration rate (GFR) between 30-44 mL/min/1.73 square meter and albuminuria creatinine ratio less than 30 mg/g (Chronic) Kyphosis (Chronic) Tremor (Chronic) History of surgery (Chronic ~10/05/19) Calculus of kidney and ureter (Chronic) Urinary tract infection (Chronic) Pneumonia (Chronic) Cystic thyroid nodule (Chronic) Influenza A (Chronic) Hypokalemia, excessive renal losses (Chronic) Tinea corporis (Chronic) Symptoms of urinary tract infection (Chronic) Lumbar spine strain (Chronic) Cervical strain (Chronic) Scalp contusion (Chronic) Dehydration (Chronic) Hypoxia (Chronic) Fall as cause of accidental injury at home as place of occurrence (Chronic) Humeral fracture (Chronic) Leg wound, left (Chronic) Joint pain (Chronic) Adnexal pain (Chronic) Endometrial hyperplasia (Chronic) Cervical polyp (Chronic) Intention tremor (Chronic) Shoulder joint pain (Chronic) Parathyroid adenoma (Chronic) Primary hyperparathyroidism (Chronic) Chronic kidney disease, stage 3 (Chronic) Hematuria (Chronic) Hydroureter (Chronic) History of ureter stent (Chronic 10/09/13) Postmenopausal bleeding (Chronic) Sinusitis (Chronic) Urinary incontinence, urge (Chronic 03/26/13) Ureteral calculus (Chronic 10/08/13) Pain in joint, shoulder region (Chronic) Major depressive disorder in remission (Chronic) Hypertension, essential (Chronic) Hyperlipidemia (Chronic) Cervical disc disease with myelopathy (Chronic 04/30/14) Back pain (Chronic) Medical History (Updated 07/23/20 @ 03:12 by Micah Dean MD) Abnormal urine finding (Resolved) elevated urine constitute, calcium Abnormal urine finding (Resolved) Elevated urine constitute, uric acid Adnexal pain (Chronic) Back pain (Chronic) Calculus of kidney and ureter (Chronic) Cellulitis (Resolved) Right lower extremity cellulitis Cervical disc disease with myelopathy (Chronic 04/30/14) use tramadol prn Cervical polyp (Chronic) Cervical strain (Chronic) Chronic kidney disease, stage 3 (Chronic) Cystic thyroid nodule (Chronic) Dehydration (Chronic) Endometrial hyperplasia (Chronic) Fall as cause of accidental injury at home as place of occurrence (Chronic) Flank pain (Resolved) Hematuria (Chronic) Humeral fracture (Chronic) Hydroureter (Chronic) Ureteric Obstruction Hyperlipidemia (Chronic) Hypertension, essential (Chronic) Hypokalemia (Resolved) Hypokalemia (Resolved) Hypokalemia, excessive renal losses (Chronic) Hypoxia (Chronic) Influenza A (Chronic) Intention tremor (Chronic) Joint pain (Chronic) Kidney calculus (Resolved 04/22/14) Left side Kyphosis (Chronic) Leg wound, left (Chronic) Lumbar spine strain (Chronic) Major depressive disorder in remission (Chronic) Nausea (Resolved) Pain in joint, shoulder region (Chronic) 2011 Fractured upper humerus-conservatively treated Parathyroid adenoma (Chronic) Pneumonia (Chronic) Postmenopausal bleeding (Chronic) Primary hyperparathyroidism (Chronic) Renal calculi (Resolved 10/08/13) Scalp contusion (Chronic) Shoulder joint pain (Chronic) Sinusitis (Chronic) Symptoms of urinary tract infection (Chronic) Tinea corporis (Chronic) Tremor (Chronic) Ureteral calculus (Chronic 10/08/13) Urinary incontinence, urge (Chronic 03/26/13) Urinary tract infection (Chronic) leukocytes, hematuria noted on urine dipstick today Viral syndrome (Resolved) Surgical History (Updated 07/23/20 @ 03:10 by Micah Dean MD) H/O cystoscopy (Resolved 10/09/13) H/O lithotripsy (Resolved 05/07/14) Cystoscopy, placement of 6 x 26 Polaris Loop stent and LT ESWL H/O sinus surgery (Resolved ~1999) H/O tubal ligation (Resolved ~1990) H/O: hemorrhoidectomy (Resolved ~1988) History of intravascular stent placement (Resolved 08/07/13) 6 x 26 Polaris Loop Stent History of partial thyroidectomy (Acute) History of surgery (Chronic ~10/05/19) Fragmenting of kidney stone History of ureter stent (Chronic 10/09/13) Right ureteroscopy with laser of stone and placement of stent. Family History Aunt Malignant neoplasm of brain Grandmother-maternal Malignant neoplasm of brain Mother Diabetes mellitus Myocardial Infarction Malignant neoplasm of stomach Grandfather-maternal Myocardial Infarction Social History (Updated 06/23/20 @ 14:08 by Maria Fernanda Hill) marital status: occupational status: unemployed smoking status: Never smoker alcohol intake frequency: a few times a week MEDS/ALLERGIES Home Medications and Allergies Home Medications Medication Instructions Recorded Confirmed Type diphenhydramine HCl 25 mg PO Q6HP PRN 04/26/17 06/25/20 History omeprazole 20 mg capsule,delayed 20 mg PO QDAY #90 cap 08/09/17 07/23/20 Rx release iron PO 09/05/17 06/25/20 History celecoxib 200 mg capsule 200 mg PO QHS #30 cap 10/20/17 07/23/20 Rx pravastatin 40 mg tablet 40 mg PO QHS #90 tab 10/24/17 07/23/20 Rx sertraline 100 mg tablet 200 mg PO QHS #180 tab 12/30/17 07/23/20 Rx spironolactone 25 mg tablet 25 mg PO BID #180 tab 03/23/18 07/23/20 Rx oxybutynin chloride 10 mg 10 mg PO QHS #90 tab 04/24/18 07/23/20 Rx tablet,extended release 24 hr acetaminophen 500 mg tablet 500 mg PO BID PRN tab 06/23/20 07/23/20 History calcium carbonate 600 mg (1,500 1 tab PO QDAY 06/23/20 07/23/20 History mg)-vitamin D3 200 unit tablet oxycodone-acetaminophen 5 mg-325 1 tab PO BID PRN tab 06/23/20 07/23/20 History mg tablet potassium chloride 10 mEq 15 meq PO QDAY tab 06/23/20 06/25/20 History tablet,extended release hydrochlorothiazide 25 mg tablet 25 mg PO QDAY tab 06/25/20 07/23/20 History levothyroxine 100 mcg tablet 88 mcg PO QDAY tab 06/25/20 07/23/20 History losartan 100 mg tablet 100 mg PO QDAY tab 06/25/20 07/23/20 History nystatin 100,000 unit/gram topical 1 applic TOPICAL BID PRN 06/25/20 06/25/20 History powder primidone 50 mg tablet 50 mg PO QDAY tab 06/25/20 07/23/20 History tramadol 50 mg tablet 50 mg PO BID tab 06/25/20 07/23/20 History ivermectin 21 mg PO ONCE #21 tab 07/23/20 Rx ondansetron 4 mg PO Q6H PRN #10 tab 07/23/20 Rx Allergies Allergy/AdvReac Type Severity Reaction Status Date / Time clavulanic acid Allergy Intermediate Unknown Verified 07/23/20 02:42 [From Augmentin] iodine Allergy Intermediate Skin Verified 07/23/20 02:42 Reaction Amoxicillin AdvReac Mild Diarrhea Verified 07/23/20 02:42 codeine AdvReac Mild Migraine Verified 07/23/20 02:42 EXAM Constitutional Vitals: Temp Pulse Resp BP Pulse Ox 97.7 F 78 19 114/67 93 07/31/20 19:04 07/31/20 19:27 07/31/20 19:27 07/31/20 19:27 07/31/20 19:27 Anxious lethargic fatigued Head normocephalic Oral cavity moist No ear nose discharge Eye movement symmetrical Neck supple no lymphadenopathy S1-S2 regular Labored breathing on 4 L oxygen Nondistended nontender abdomen Lower extremity no cyanosis clubbing or joint swelling Skin no suspicious lesion Psych anxious but no hallucination Neuro normal higher function, GCS 13 DATA Data Completed and Pending Labs: Labs from last 24 hours 07/31/20 07/31/20 07/31/20 19:30 19:30 19:30 WBC RBC Hgb Hct MCV MCH MCHC RDW Plt Count MPV Neut % (Auto) D-Dimer Pending VBG Lactic Acid Pending Sodium Pending Potassium Pending Chloride Pending Carbon Dioxide Pending Anion Gap Pending BUN Pending Creatinine Pending GFR Calculation Pending Glucose Pending Calcium Pending Total Bilirubin Pending AST Pending ALT Pending Alkaline Phosphatase Pending Total Protein Pending Albumin Pending Globulin Pending Albumin/Globulin Ratio Pending 07/31/20 19:30 WBC Pending RBC Pending Hgb Pending Hct Pending MCV Pending MCH Pending MCHC Pending RDW Pending Plt Count Pending MPV Pending Neut % (Auto) Pending D-Dimer VBG Lactic Acid Sodium Potassium Chloride Carbon Dioxide Anion Gap BUN Creatinine GFR Calculation Glucose Calcium Total Bilirubin AST ALT Alkaline Phosphatase Total Protein Albumin Globulin Albumin/Globulin Ratio A/P Narrative A/P Narrative: * COVID-19 pneumonia-PCU admission/initiate remdesivir if GFR permits/dexamethasone, thrombosis prophylaxis/coag and inflammatory markers, maintain COVID-19 precautions * Acute hypoxic respiratory failure secondary to Covid pneumonia. Continue with low flow oxygen/pulmonary toilet and transition to NIV if deteriorating status/worsening oxygenation on ABG/interval chest imaging * History of hypertension continue spironolactone/losartan/thiazide * Hypothyroidism thyroxine * GERD continue PPI * Chronic pain on oxycodone/tramadol * anxiety disorder continue sertraline * Hyperlipidemia continue statin * Full code * Prophylaxis twice daily Lovenox Plan * Inpatient PCU admission * Low flow oxygen/remdesivir/steroid * Noninvasive mechanical ventilation deteriorating respiratory status or worsening Covid pneumonia * Serial imaging/ABG/coag inflammatory markers * empiric antibiotics/thrombosis prophylaxis twice daily Lovenox * Pre-existing medical condition management home meds * Directed therapies/nutrition support/early mobilization * Discharge planning Time Spent With Patient Time: Total time spent is greater than 50% in coordination of care (as documented) at patient's floor/unit and/or counseling patient:
[2020-07-31 20:47] LABS: Basophils # (Auto) 0.01 K/mcL (0.00-0.20); Basophils % (Auto) 0.2 % (0.0-2.0); Eosinophils # (Auto) 0.09 K/mcL (0.00-0.70); Eosinophils % (Auto) 2.1 % (0.0-7.0); Hematocrit 33.3 % (36.0-48.0); Hemoglobin 11.4 g/dL (12.0-15.0); Lymphocytes # (Auto) 0.68 K/mcL (1.50-4.80); Lymphocytes % (Auto) 15.9 % (15.0-49.0); Mean Cell Volume 88.8 fL (80.0-100.0); Mean Corpuscular HGB Conc 34.2 g/dL (31.0-36.0); Mean Platelet Volume 11.9 fL (7.4-10.4); Monocytes # (Auto) 0.34 K/mcL (0.10-0.90); Monocytes % (Auto) 7.9 % (1.0-12.0); Neutrophils % (Auto) 73.9 % (38.0-78.0); Platelet Count 159 K/mcL (140-440); RBC 3.75 M/mcL (4.00-5.20); Red Cell Distribution Width 14.2 % (11.5-14.5); WBC 4.3 K/mcL (4.5-11.0)
[2020-07-31 21:04] LABS: ALT/SGPT 18 U/L (<40); AST/SGOT 30 U/L (<32); Albumin/Globulin Ratio 0.8 (1.0-2.3); Alkaline Phosphatase 85 U/L (39-117); Blood Urea Nitrogen 21 mg/dL (8-23); Calcium 8.2 mg/dL (8.6-10.4); Carbon Dioxide 28 mmol/L (22-30); Chloride 93 mmol/L (96-108); Globulin 3.8 gm/dL (2.2-3.7); Glomerular Filtration Rate 63; Glucose 114 mg/dL (70-105)
[2020-07-31] MEDS ORDERED: REMDESIVIR 200 MG in 0.9 % SODIUM CHLORIDE 250 ML IV ONE (21:30)
[2020-07-31] MEDS ORDERED: 0.9 % SODIUM CHLORIDE 1,000 ML IV ONE (21:30)
[2020-07-31] MEDS ORDERED: POTASSIUM CHLORIDE 20 MEQ PACKET PO PRN (21:46)
[2020-07-31] MEDS ORDERED: ACETAMINOPHEN 650 MG/65 ML BAG IV PRN (21:46)
[2020-07-31] MEDS ORDERED: ALBUTEROL SULFATE 200 PUFF INHALER INH PRN (21:46)
[2020-07-31] MEDS ORDERED: POTASSIUM CHLORIDE 40 MEQ in DEXTROSE 5% IN WATER 500 ML IV PRN (21:46)
[2020-07-31] MEDS ORDERED: BISACODYL 10 MG SUPP.RECT PR PRN (21:46)
[2020-07-31] MEDS ORDERED: MAGNESIUM SULFATE 2 GM/50 ML BAG IV PRN (21:46)
[2020-07-31] MEDS ORDERED: MELATONIN 3 MG TABLET PO PRN (21:46)
[2020-07-31] MEDS ORDERED: POLYETHYLENE GLYCOL 3350 17 GM PACKET PO PRN (21:46)
[2020-07-31] MEDS ORDERED: ONDANSETRON 4 MG ODT TABLET SL PRN (21:46)
[2020-08-01] MEDS: 0.9 % SODIUM CHLORIDE 10 ML SYRINGE IV SCH ×4 (00:48→20:34)
[2020-08-01] MEDS: SENNOSIDES/DOCUSATE SODIUM 1 TAB TABLET PO SCH ×2 (00:50→20:08)
[2020-08-01] MEDS: DOCUSATE SODIUM 100 MG CAPSULE PO SCH ×3 (00:50→20:08)
[2020-08-01] MEDS: ENOXAPARIN 40 MG/0.4 ML SYRINGE SQ SCH ×3 (00:54→20:33)
[2020-08-01] MEDS ORDERED: cefTRIAXone 2 GM VIAL ONE (01:02)
[2020-08-01] MEDS: AZITHROMYCIN 500 MG in DEXTROSE 5% IN WATER 250 ML IV SCH ×2 (01:08→15:12)
[2020-08-01] MEDS: cefTRIAXone 2 GM in DEXTROSE 5% IN WATER 50 ML IV SCH ×2 (02:16→15:12)
[2020-08-01 06:54] LABS: Basophils # (Auto) 0.01 K/mcL (0.00-0.20); Basophils % (Auto) 0.3 % (0.0-2.0); Eosinophils # (Auto) 0 K/mcL (0.00-0.70); Eosinophils % (Auto) 0 % (0.0-7.0); Hematocrit 31.2 % (36.0-48.0); Hemoglobin 10.7 g/dL (12.0-15.0); Lymphocytes % (Auto) 15.2 % (15.0-49.0); Mean Cell Volume 91.2 fL (80.0-100.0); Mean Corpuscular HGB Conc 34.3 g/dL (31.0-36.0); Mean Platelet Volume 12.1 fL (7.4-10.4); Monocytes # (Auto) 0.19 K/mcL (0.10-0.90); Monocytes % (Auto) 5.8 % (1.0-12.0); Neutrophils % (Auto) 78.7 % (38.0-78.0); Platelet Count 137 K/mcL (140-440); RBC 3.42 M/mcL (4.00-5.20); Red Cell Distribution Width 14.1 % (11.5-14.5); WBC 3.3 K/mcL (4.5-11.0)
[2020-08-01 07:44] LABS: ALT/SGPT 19 U/L (<40); AST/SGOT 32 U/L (<32); Albumin 2.7 gm/dL (3.2-5.2); Albumin/Globulin Ratio 0.8 (1.0-2.3); Alkaline Phosphatase 82 U/L (39-117); Bilirubin,Direct < 0.2 mg/dL (<0.3); Bilirubin,Total 0.5 mg/dL (0.1-1.0); Blood Urea Nitrogen 19 mg/dL (8-23); Calcium 7.5 mg/dL (8.6-10.4); Carbon Dioxide 27 mmol/L (22-30); Chloride 100 mmol/L (96-108); Globulin 3.6 gm/dL (2.2-3.7); Glomerular Filtration Rate 63; Glucose 125 mg/dL (70-105); Lactate Dehydrogenase 277 U/L (135-225); Phosphorous 1.8 mg/dL (2.5-4.5); Triglycerides 97 mg/dL (<150); Uric Acid 4.4 mg/dL (2.5-8.0)
[2020-08-01 08:33] LABS: Appearance,Urine CLEAR (Clear); Bacteria,Urine FEW /hpf (0); Bilirubin,Urine Negative (Negative); Color,Urine YELLOW; Culture Indicated,Urine Yes; Glucose,Urine (UA) Negative (Negative); Ketones,Urine Negative (Negative); Leukocyte Esterase,Urine 250 /ug (Negative); Nitrate,Urine POS (Negative); Protein,Urine Negative (Negative); Specific Gravity,Urine 1.016 (1.000-1.035); Urine Blood Negative (Negative); Urine RBC 0 /hpf (0-3); Urine Squamous Epithelial Cell < 1 /hpf (0-4); Urine WBC 5 /hpf (0-4); Urobilinogen,Urine Negative
--- NOTE | 2020-08-01 09:02 | XRay Report ---
HISTORY: Shortness of breath with Covid FINDINGS: There is a patchy distribution of alveolar infiltrates in both lungs. The greatest involvement is around the left lower hilum. No pleural effusion is present. Left diaphragm is mildly elevated. Aorta is tortuous. Heart size is within normal limits. Patient has a prosthetic right shoulder and mild arthritis in the left shoulder. IMPRESSION: Bilateral pneumonia Interpreted and Authenticated by: Bo Davenport 08/01/20
[2020-08-01] MEDS: DEXAMETHASONE 4 MG TABLET PO SCH (09:51)
[2020-08-01] MEDS: ACETAMINOPHEN 325 MG TABLET PO PRN (09:52)
[2020-08-01] MEDS: REMDESIVIR 100 MG in 0.9 % SODIUM CHLORIDE 250 ML IV SCH (09:52)
[2020-08-01] MEDS: MULTIVIT,THER IRON,CA,FA & MIN 1 TABLET PO SCH (09:52)
[2020-08-01] MEDS ORDERED: oxyCODONE/APAP 5/325MG TABLET PO PRN (11:07)
[2020-08-01] MEDS ORDERED: diphenhydrAMINE 25 MG CAPSULE PO PRN (11:07)
[2020-08-01] MEDS ORDERED: NYSTATIN POWDER BOTTLE 15GM TOPICAL PRN (11:07)
[2020-08-01] MEDS ORDERED: ACETAMINOPHEN 500 MG TABLET PO PRN (11:07)
--- NOTE | 2020-08-01 12:09 | Internal Med Progress Note ---
SUBJECTIVE Subjective Patient information: Note initiated : 08/01/20 at 12:06 pm Service Date, if different from initiated Date: [] Patient: Selena Jaquez a 74 y/o F admitted on 07/31/20 for weakness, diarrhea, fatigue. Chief Complaint: Interval history: Ms. Jaquez is a 74 year old F with history of hypertension/anxiety/hyperlipidemia and GERD who lives in a trailer home along with her son and has been feeling sick for the last couple of weeks since she was diagnosed with COVID-19 on July 17. She has had 2 ER visit on July 21 on with symptoms of diarrhea, malaise weakness and gradually getting lethargic unable to function. She was discharged home on ivermectin/zinc and advised conservative management as patient did not show any symptoms of Covid pneumonia. Over the last 3 days she has been getting increasingly dyspneic. Diarrhea has continued along with generalized myalgia/malaise. With increasing concerns she asked her son to bring her to the ER. Initial work-up was consistent with severe hypoxia requiring 4 L oxygen to maintain sats above 90. Chest x-ray bilateral infiltrates. Patient was started on steroids. Hospitalist service was consulted. At the time of my evaluation patient is anxious and lethargic but able to answer most the question endorses history as above. She endorses to loss of appetite but denies headache, photophobia or neck stiffness. She endorses to sick contacts including family members 08/01-patient significantly hypoxic with PaO2/FiO2 ratio less than 150. PO2 58, 4L oxygen. Currently fires oxygen multifocal chest infiltrates consistent with Covid pneumonia. White count 3.3 potassium 3.1 on replacement. Phosphorus 1.8 ferritin 572. On twice daily Lovenox. Procalcitonin 0.12. Transition to noninvasive ventilation if continue scheduled. Serial ABGs and chest imaging. Constitutional Vitals: Vital Signs Temp Pulse Resp BP Pulse Ox 98.9 F 59 L 17 98/70 94 08/01/20 04:01 08/01/20 08:35 08/01/20 08:35 08/01/20 08:00 08/01/20 08:35 Period Temp Pulse Resp BP Sys/Garay Pulse Ox Last 24 Hr 97.7 F-99.1 F 41-96 15-24 87-132/49-95 88-96 Intake and Output 07/31/20 08/01/20 08/01/20 21:59 05:59 13:59 Intake Total 437 1350 430 Output Total 300 Balance 437 1350 130 Weight 107.501 kg Labored breathing on 5 L oxygen No telemetry events Minimal anxiety Intake & Output: Intake & Output 07/31/20 08/01/20 08/01/20 21:59 05:59 13:59 Intake Total 437 1350 430 Output Total 300 Balance 437 1350 130 Weight 107.501 kg Intake: IV 200 1350 250 Sodium Chloride 0.9% 1,000 ml @ 200 800 Wide Open IV [facility] Rx#: [id number] Zithromax 500 mg In Dextrose 5% 250 in Water 250 ml @ 250 mls/hr IV Q24H [facility] Rx#:[id number] Veklury 100 mg In Sodium 250 250 Chloride 0.9% 250 ml @ 500 mls/ hr IV Q24H [facility] Rx#:[id number] Rocephin 2 gm In Dextrose 5% in 50 Water 50 ml @ 100 mls/hr IV Q24H [facility] Rx#:[id number] Oral 237 180 Output: Urine Catheter Amount 300 Other: Meal Breakfast Percent of Meal Consumed 25% Feeding Ability Independent Independent Independent Urine Odor Strong OBJ DATA Labs CBC & Chem 7: 08/01/20 04:25 08/01/20 04:25 Labs: Abnormal Lab Results 08/01/20 08/01/20 08/01/20 04:26 04:25 04:25 WBC RBC Hgb Hct Plt Count MPV Neut % (Auto) Lymph # (Auto) D-Dimer 0.84 H Potassium 3.1 L Chloride Glucose 125 H Calcium 7.5 L Phosphorus 1.8 L Ferritin AST 32 H Lactate Dehydrogenase 277 H Albumin 2.7 L Globulin Albumin/Globulin Ratio 0.8 L Procalcitonin 0.12 H Urine Nitrate Ur Leukocyte Esterase Urine WBC Urine Bacteria 08/01/20 07/31/20 07/31/20 04:25 19:30 19:30 WBC 3.3 L RBC 3.42 L Hgb 10.7 L Hct 31.2 L Plt Count 137 L MPV 12.1 H Neut % (Auto) 78.7 H Lymph # (Auto) 0.50 L D-Dimer Potassium Chloride Glucose Calcium Phosphorus Ferritin 572.0 H AST Lactate Dehydrogenase Albumin Globulin Albumin/Globulin Ratio Procalcitonin 0.15 H Urine Nitrate Ur Leukocyte Esterase Urine WBC Urine Bacteria 07/31/20 07/31/20 07/31/20 19:30 19:30 19:30 WBC 4.3 L RBC 3.75 L Hgb 11.4 L Hct 33.3 L Plt Count MPV 11.9 H Neut % (Auto) Lymph # (Auto) 0.68 L D-Dimer 1.12 H Potassium Chloride 93 L Glucose 114 H Calcium 8.2 L Phosphorus Ferritin AST Lactate Dehydrogenase Albumin 3.0 L Globulin 3.8 H Albumin/Globulin Ratio 0.8 L Procalcitonin Urine Nitrate Ur Leukocyte Esterase Urine WBC Urine Bacteria 07/31/20 07:55 WBC RBC Hgb Hct Plt Count MPV Neut % (Auto) Lymph # (Auto) D-Dimer Potassium Chloride Glucose Calcium Phosphorus Ferritin AST Lactate Dehydrogenase Albumin Globulin Albumin/Globulin Ratio Procalcitonin Urine Nitrate Pos A Ur Leukocyte Esterase 250 A Urine WBC 5 H Urine Bacteria Few A Meds: Medications Acetaminophen (Tylenol) 650 mg PO Q4-6HP PRN; Protocol PRN Reason: Per Pain Protocol/Fever > 101 Last Admin: 08/01/20 09:52 Dose: 650 mg Documented by: Albuterol Sulfate (Ventolin) 1 - 2 puff INH Q4HP PRN PRN Reason: Shortness Of Breath Atorvastatin Calcium (Lipitor) 10 mg PO HS [facility] Bisacodyl (Dulcolax) 10 mg WA Q2-3DAYS PRN PRN Reason: Constipation Dexamethasone (Decadron) 6 mg PO DAILY [facility] Last Admin: 08/01/20 09:51 Dose: 6 mg Documented by: Diphenhydramine HCl (Benadryl) 25 mg PO Q6HP PRN PRN Reason: Allergy Symptoms Docusate Sodium (Colace) 100 mg PO BID [facility] Last Admin: 08/01/20 09:49 Dose: Not Given Documented by: Enoxaparin Sodium (Lovenox) 40 mg SQ BID [facility] Last Admin: 08/01/20 09:51 Dose: 40 mg Documented by: Azithromycin 500 mg/ Dextrose 250 mls @ 250 mls/hr IV Q24H [facility]; Protocol Stop: 08/02/20 23:59 Last Infusion: 08/01/20 02:07 Dose: Infused Documented by: REMDESIVIR 100 mg/ Sodium (Chloride) 250 mls @ 500 mls/hr IV Q24H [facility] Stop: 08/04/20 10:29 Last Infusion: 08/01/20 10:43 Dose: Infused Documented by: Potassium Chloride 40 meq/ (Dextrose) 520 mls @ 130 mls/hr IV UD PRN PRN Reason: K+ = or < 3.5 Acetaminophen (Ofirmev) 650 mg in 65 mls @ 130 mls/hr IV Q6HP PRN; Protocol PRN Reason: Per Pain Protocol/Fever > 101 Magnesium Sulfate (Magnesium Sulfate) 2 gm in 50 mls @ 50 mls/hr IV UD PRN PRN Reason: MG = or < 1.7 Ceftriaxone Sodium 2 gm/ (Dextrose) 50 mls @ 100 mls/hr IV Q24H [facility]; Protocol Last Infusion: 08/01/20 02:55 Dose: Infused Documented by: Iron Carb/Multivit/[place]/Folic Acid (Multivitamin W/Minerals) 1 tab PO DAILY [facility] Last Admin: 08/01/20 09:52 Dose: 1 tab Documented by: Levothyroxine Sodium (Synthroid) 88 mcg PO QAMAC [facility] Melatonin (Melatonin 3mg Tablet) 3 mg PO HSP PRN PRN Reason: Insomnia Nystatin (Nystatin) 1 dose TOPICAL BIDP PRN PRN Reason: FUNGAL INFECTION Omeprazole (Prilosec) 20 mg PO ACB [facility] Ondansetron HCl (Zofran Odt) 4 mg SL Q4-6HP PRN; Protocol PRN Reason: Nausea And Vomiting Ondansetron HCl (Zofran) 4 mg IV Q4-6HP PRN; Protocol PRN Reason: Nausea And Vomiting Oxybutynin Chloride (Ditropan Xl) 10 mg PO HS [facility] Oxycodone/Acetaminophen (Percocet 5-325 Mg) 1 tab PO BIDP PRN; Protocol PRN Reason: Pain, Moderate Polyethylene Glycol (Miralax) 17 gm PO DAILYP PRN PRN Reason: Constipation Potassium Chloride (Klor-Con) 40 meq PO DAILYP PRN PRN Reason: K+ < 3.5 Potassium Chloride (Kdur) 15 meq PO QAMCC [facility] Potassium/Phosphorus/Sodium (Neutra Phos) 2 packet PO DAILYP PRN PRN Reason: PHOS <2.5 Primidone (Mysoline) 50 mg PO QDAY [facility] Senna/Docusate Sodium (Senna Plus Tablet) 1 tab PO HS [facility] Last Admin: 08/01/20 00:50 Dose: Not Given Documented by: Sertraline HCl (Zoloft) 200 mg PO QHS [facility] Sodium Chloride (Saline Flush) 10 ml IV Q8 [facility] Last Admin: 08/01/20 05:24 Dose: 10 ml Documented by: Tramadol HCl (Ultram) 50 mg PO TID [facility]; Protocol A/P Narrative A/P Narrative: * COVID-19 pneumonia-PCU admission/initiate remdesivir if GFR permits/dexamethasone, thrombosis prophylaxis/coag and inflammatory markers, maintain COVID-19 precautions * Acute hypoxic respiratory failure secondary to Covid pneumonia. Currently on 5 L low flow oxygen * History of hypertension continue home dose spironolactone/losartan/thiazide with holding parameters * Low potassium and phosphorus on replacement * Hypothyroidism thyroxine * GERD continue PPI * Chronic pain on oxycodone/tramadol * anxiety disorder continue sertraline * Hyperlipidemia continue statin * Full code * Prophylaxis twice daily Lovenox Plan * Low flow oxygen/remdesivir/dexamethasone * Serial imaging/blood gas, NIV if clinical deterioration noted * thrombosis prophylaxis twice daily Lovenox * Pre-existing medical condition management home meds * Directed therapies/nutrition support/early mobilization * Discharge planning per case management Time Spent With Patient Time: Total time spent is greater than 50% in coordination of care (as documented) at patient's floor/unit and/or counseling patient: QUALITY VTE Deep Vein Thrombosis/Pulmonary Embolism Present on Admission: No
[2020-08-01] MEDS: NEUTRA PHOS 1 PACKET PO PRN (12:23)
[2020-08-01] MEDS: traMADol 50 MG TABLET PO SCH ×2 (15:15→20:33)
[2020-08-01] MEDS ORDERED: INSULIN REGULAR, HUMAN 1 UNIT/0.01 ML UNIT ONE (18:27)
[2020-08-01] MEDS: ATORVASTATIN 10 MG TABLET PO SCH (20:33)
[2020-08-01] MEDS: SERTRALINE 100 MG TABLET PO SCH (20:33)
[2020-08-01] MEDS: OXYBUTYNIN CHLORIDE 5 MG TAB.XL.24H PO SCH (20:33)
[2020-08-02] MEDS: 0.9 % SODIUM CHLORIDE 10 ML SYRINGE IV SCH ×3 (05:40→21:05)
[2020-08-02 06:46] LABS: Basophils # (Auto) 0.01 K/mcL (0.00-0.20); Basophils % (Auto) 0.2 % (0.0-2.0); Eosinophils # (Auto) 0.15 K/mcL (0.00-0.70); Eosinophils % (Auto) 2.5 % (0.0-7.0); Hematocrit 32.9 % (36.0-48.0); Hemoglobin 11.1 g/dL (12.0-15.0); Lymphocytes # (Auto) 0.99 K/mcL (1.50-4.80); Lymphocytes % (Auto) 16.5 % (15.0-49.0); Mean Cell Volume 91.6 fL (80.0-100.0); Mean Corpuscular HGB Conc 33.7 g/dL (31.0-36.0); Monocytes # (Auto) 0.49 K/mcL (0.10-0.90); Monocytes % (Auto) 8.2 % (1.0-12.0); Neutrophils % (Auto) 72.6 % (38.0-78.0); Platelet Count 161 K/mcL (140-440); RBC 3.59 M/mcL (4.00-5.20); Red Cell Distribution Width 13.9 % (11.5-14.5)
[2020-08-02 07:01] LABS: ALT/SGPT 17 U/L (<40); AST/SGOT 24 U/L (<32); Albumin 2.7 gm/dL (3.2-5.2); Albumin/Globulin Ratio 0.8 (1.0-2.3); Alkaline Phosphatase 100 U/L (39-117); Bilirubin,Direct < 0.2 mg/dL (<0.3); Bilirubin,Total 0.5 mg/dL (0.1-1.0); Blood Urea Nitrogen 21 mg/dL (8-23); Calcium 7.9 mg/dL (8.6-10.4); Carbon Dioxide 29 mmol/L (22-30); Chloride 100 mmol/L (96-108); Globulin 3.6 gm/dL (2.2-3.7); Glomerular Filtration Rate 73; Glucose 88 mg/dL (70-105); Lactate Dehydrogenase 254 U/L (135-225); Phosphorous 1.9 mg/dL (2.5-4.5); Triglycerides 96 mg/dL (<150); Uric Acid 3.7 mg/dL (2.5-8.0)
[2020-08-02] MEDS: LEVOTHYROXINE 88 MCG TABLET PO SCH (07:38)
[2020-08-02] MEDS: cefTRIAXone 2 GM in DEXTROSE 5% IN WATER 50 ML IV SCH (07:38)
[2020-08-02] MEDS: ACETAMINOPHEN 325 MG TABLET PO PRN (07:38)
[2020-08-02] MEDS: OMEPRAZOLE 20 MG CAPSULE PO SCH (07:38)
[2020-08-02] MEDS: traMADol 50 MG TABLET PO SCH ×3 (07:39→21:04)
[2020-08-02] MEDS: DOCUSATE SODIUM 100 MG CAPSULE PO SCH ×2 (08:39→20:53)
[2020-08-02] MEDS: POTASSIUM CHLORIDE 10 MEQ TABLET PO SCH (08:39)
[2020-08-02] MEDS: ENOXAPARIN 40 MG/0.4 ML SYRINGE SQ SCH ×2 (08:39→21:04)
[2020-08-02] MEDS: DEXAMETHASONE 4 MG TABLET PO SCH (08:39)
[2020-08-02] MEDS: MULTIVIT,THER IRON,CA,FA & MIN 1 TABLET PO SCH (08:39)
[2020-08-02] MEDS: PRIMIDONE 50 MG TABLET PO SCH (08:45)
[2020-08-02] MEDS: AZITHROMYCIN 500 MG in DEXTROSE 5% IN WATER 250 ML IV SCH (08:45)
[2020-08-02] MEDS ORDERED: LEVOTHYROXINE 100 MCG TABLET PO SCH (09:00)
--- NOTE | 2020-08-02 09:20 | Internal Med Progress Note ---
SUBJECTIVE Subjective Patient information: Note initiated : 08/02/20 at 9:15 am Service Date, if different from initiated Date: [] Patient: Selena Jaquez a 74 y/o F admitted on 07/31/20 for weakness, diarrhea, fatigue. Chief Complaint: [] Interval history: Ms. Jaquez is a 74 year old F with history of hypertension/anxiety/hyperlipidemia and GERD who lives in a trailer home along with her son and has been feeling sick for the last couple of weeks since she was diagnosed with COVID-19 on July 17. She has had 2 ER visit on July 21 on with symptoms of diarrhea, malaise weakness and gradually getting lethargic unable to function. She was discharged home on ivermectin/zinc and advised conservative management as patient did not show any symptoms of Covid pneumonia. Over the last 3 days she has been getting increasingly dyspneic. Diarrhea has continued along with generalized myalgia/malaise. With increasing concerns she asked her son to bring her to the ER. Initial work-up was consistent with severe hypoxia requiring 4 L oxygen to maintain sats above 90. Chest x-ray bilateral infiltrates. Patient was started on steroids. Hospitalist service was consulted. At the time of my evaluation patient is anxious and lethargic but able to answer most the question endorses history as above. She endorses to loss of appetite but denies headache, photophobia or neck stiffness. She endorses to sick contacts including family members 08/01-patient significantly hypoxic with PaO2/FiO2 ratio less than 150. PO2 58, 4L oxygen. Currently fires oxygen multifocal chest infiltrates consistent with Covid pneumonia. White count 3.3 potassium 3.1 on replacement. Phosphorus 1.8 ferritin 572. On twice daily Lovenox. Procalcitonin 0.12. Transition to noninvasive ventilation if continue scheduled. Serial ABGs and chest imaging. 08/02-demonstrating gradual clinical improvement however requiring 5 L oxygen to maintain saturations. Multifocal pneumonia. On remdesivir/dexamethasone. Low phosphorus 1.9 on replacement white count 6000, interval chest imaging worsening bilateral chest infiltrates. Continue COVID-19 precautions/thrombosis prophylaxis/supportive management. Empiric antibiotic for superimposed bacterial pneumonia coverage, no additional concerns expressed by nursing staff. Constitutional Vitals: Vital Signs Temp Pulse Resp BP Pulse Ox 98.2 F 57 L 17 100/69 92 08/02/20 08:02 08/02/20 08:02 08/02/20 08:02 08/02/20 08:02 08/02/20 08:02 Period Temp Pulse Resp BP Sys/Garay Pulse Ox Last 24 Hr 97.8 F-98.2 F 50-82 13-24 91-113/54-83 90-98 Intake and Output 08/01/20 08/02/20 08/02/20 21:59 05:59 13:59 Intake Total 120 200 820 Output Total 500 250 Balance -380 -50 820 Weight 110.903 kg Alert oriented No anxiety No telemetry events Minimally labored breathing Resting comfortably Intake & Output: Intake & Output 08/01/20 08/02/20 08/02/20 21:59 05:59 13:59 Intake Total 120 200 820 Output Total 500 250 Balance -380 -50 820 Weight 110.903 kg Intake: IV 820 Zithromax 500 mg In Dextrose 5% 250 in Water 250 ml @ 250 mls/hr IV Q24H [facility] Rx#:[id number] Potassium Chloride 40 Meq In 520 Dextrose 5% in Water 500 ml @ 130 mls/hr IV UD PRN Rx#: [id number] Rocephin 2 gm In Dextrose 5% in 50 Water 50 ml @ 100 mls/hr IV Q24H [facility] Rx#:[id number] Oral 120 200 Output: Void Amount 250 Urine/Stool Mix 500 Other: Meal Dinner Percent of Meal Consumed 75% Feeding Ability Independent Urine Color Dark Yellow Stool Size Small Stool Color Brown Stool Consistency Soft # Voids 150 # Bowel Movements 1 OBJ DATA Labs CBC & Chem 7: 08/02/20 04:37 08/02/20 04:37 Labs: Abnormal Lab Results 08/02/20 08/02/20 08/02/20 04:37 04:37 04:37 WBC RBC 3.59 L Hgb 11.1 L Hct 32.9 L Plt Count MPV 12.0 H Neut % (Auto) Lymph # (Auto) 0.99 L D-Dimer 0.85 H Potassium Chloride Anion Gap 7.0 L Glucose Calcium 7.9 L Phosphorus 1.9 L Ferritin AST Lactate Dehydrogenase 254 H Albumin 2.7 L Globulin Albumin/Globulin Ratio 0.8 L Procalcitonin Urine Nitrate Ur Leukocyte Esterase Urine WBC Urine Bacteria 0108/01/20 08/01/20 04:37 04:26 04:25 WBC RBC Hgb Hct Plt Count MPV Neut % (Auto) Lymph # (Auto) D-Dimer Potassium 3.1 L Chloride Anion Gap Glucose 125 H Calcium 7.5 L Phosphorus 1.8 L Ferritin AST 32 H Lactate Dehydrogenase 277 H Albumin 2.7 L Globulin Albumin/Globulin Ratio 0.8 L Procalcitonin 0.11 H 0.12 H Urine Nitrate Ur Leukocyte Esterase Urine WBC Urine Bacteria 08/01/20 08/01/20 07/31/20 04:25 04:25 19:30 WBC 3.3 L RBC 3.42 L Hgb 10.7 L Hct 31.2 L Plt Count 137 L MPV 12.1 H Neut % (Auto) 78.7 H Lymph # (Auto) 0.50 L D-Dimer 0.84 H Potassium Chloride Anion Gap Glucose Calcium Phosphorus Ferritin AST Lactate Dehydrogenase Albumin Globulin Albumin/Globulin Ratio Procalcitonin 0.15 H Urine Nitrate Ur Leukocyte Esterase Urine WBC Urine Bacteria 07/31/20 07/31/20 07/31/20 19:30 19:30 19:30 WBC RBC Hgb Hct Plt Count MPV Neut % (Auto) Lymph # (Auto) D-Dimer 1.12 H Potassium Chloride 93 L Anion Gap Glucose 114 H Calcium 8.2 L Phosphorus Ferritin 572.0 H AST Lactate Dehydrogenase Albumin 3.0 L Globulin 3.8 H Albumin/Globulin Ratio 0.8 L Procalcitonin Urine Nitrate Ur Leukocyte Esterase Urine WBC Urine Bacteria 07/31/20 07/31/20 19:30 07:55 WBC 4.3 L RBC 3.75 L Hgb 11.4 L Hct 33.3 L Plt Count MPV 11.9 H Neut % (Auto) Lymph # (Auto) 0.68 L D-Dimer Potassium Chloride Anion Gap Glucose Calcium Phosphorus Ferritin AST Lactate Dehydrogenase Albumin Globulin Albumin/Globulin Ratio Procalcitonin Urine Nitrate Pos A Ur Leukocyte Esterase 250 A Urine WBC 5 H Urine Bacteria Few A Meds: Medications Acetaminophen (Tylenol) 650 mg PO Q4-6HP PRN; Protocol PRN Reason: Per Pain Protocol/Fever > 101 Last Admin: 08/02/20 07:38 Dose: 650 mg Documented by: Albuterol Sulfate (Ventolin) 1 - 2 puff INH Q4HP PRN PRN Reason: Shortness Of Breath Atorvastatin Calcium (Lipitor) 10 mg PO HS [facility] Last Admin: 08/01/20 20:33 Dose: 10 mg Documented by: Bisacodyl (Dulcolax) 10 mg PA Q2-3DAYS PRN PRN Reason: Constipation Dexamethasone (Decadron) 6 mg PO DAILY [facility] Last Admin: 08/02/20 08:39 Dose: 6 mg Documented by: Diphenhydramine HCl (Benadryl) 25 mg PO Q6HP PRN PRN Reason: Allergy Symptoms Docusate Sodium (Colace) 100 mg PO BID [facility] Last Admin: 08/02/20 08:39 Dose: Not Given Documented by: Enoxaparin Sodium (Lovenox) 40 mg SQ BID [facility] Last Admin: 08/02/20 08:39 Dose: 40 mg Documented by: Azithromycin 500 mg/ Dextrose 250 mls @ 250 mls/hr IV Q24H [facility]; Protocol Stop: 08/02/20 23:59 Last Admin: 08/02/20 08:45 Dose: 250 mls/hr Documented by: REMDESIVIR 100 mg/ Sodium (Chloride) 250 mls @ 500 mls/hr IV Q24H [facility] Stop: 08/04/20 10:29 Last Infusion: 08/01/20 10:43 Dose: Infused Documented by: Potassium Chloride 40 meq/ (Dextrose) 520 mls @ 130 mls/hr IV UD PRN PRN Reason: K+ = or < 3.5 Last Infusion: 08/02/20 06:42 Dose: Infused Documented by: Acetaminophen (Ofirmev) 650 mg in 65 mls @ 130 mls/hr IV Q6HP PRN; Protocol PRN Reason: Per Pain Protocol/Fever > 101 Magnesium Sulfate (Magnesium Sulfate) 2 gm in 50 mls @ 50 mls/hr IV UD PRN PRN Reason: MG = or < 1.7 Ceftriaxone Sodium 2 gm/ (Dextrose) 50 mls @ 100 mls/hr IV Q24H [facility]; Protocol Last Admin: 08/02/20 07:38 Dose: 100 mls/hr Documented by: Iron Carb/Multivit/[place]/Folic Acid (Multivitamin W/Minerals) 1 tab PO DAILY [facility] Last Admin: 08/02/20 08:39 Dose: 1 tab Documented by: Levothyroxine Sodium (Synthroid) 88 mcg PO QAMAC [facility] Last Admin: 08/02/20 07:38 Dose: 88 mcg Documented by: Melatonin (Melatonin 3mg Tablet) 3 mg PO HSP PRN PRN Reason: Insomnia Nystatin (Nystatin) 1 dose TOPICAL BIDP PRN PRN Reason: FUNGAL INFECTION Omeprazole (Prilosec) 20 mg PO ACB [facility] Last Admin: 08/02/20 07:38 Dose: 20 mg Documented by: Ondansetron HCl (Zofran Odt) 4 mg SL Q4-6HP PRN; Protocol PRN Reason: Nausea And Vomiting Ondansetron HCl (Zofran) 4 mg IV Q4-6HP PRN; Protocol PRN Reason: Nausea And Vomiting Oxybutynin Chloride (Ditropan Xl) 10 mg PO [facility] Last Admin: 08/01/20 20:33 Dose: 10 mg Documented by: Oxycodone/Acetaminophen (Percocet 5-325 Mg) 1 tab PO BIDP PRN; Protocol PRN Reason: Pain, Moderate Polyethylene Glycol (Miralax) 17 gm PO DAILYP PRN PRN Reason: Constipation Potassium Chloride (Klor-Con) 40 meq PO DAILYP PRN PRN Reason: K+ < 3.5 Last Admin: 08/01/20 12:23 Dose: 40 meq Documented by: [facility] ([facility]) [facility] Last Admin: 08/02/20 08:39 Dose: 15 meq Documented by: Potassium/Phosphorus/Sodium (Neutra Phos) 2 packet PO DAILYP PRN PRN Reason: PHOS <2.5 Last Admin: 08/01/20 12:23 Dose: 2 packet Documented by: Primidone (Mysoline) 50 mg PO QDAY [facility] Last Admin: 08/02/20 08:45 Dose: 50 mg Documented by: Senna/Docusate Sodium (Senna Plus Tablet) 1 tab PO [facility] Last Admin: 08/01/20 20:08 Dose: Not Given Documented by: Sertraline HCl (Zoloft) 200 mg PO QHS [facility] Last Admin: 08/01/20 20:33 Dose: 200 mg Documented by: Sodium Chloride (Saline Flush) 10 ml IV Q8 [facility] Last Admin: 08/02/20 05:40 Dose: 10 ml Documented by: Tramadol HCl (Ultram) 50 mg PO TID [facility]; Protocol Last Admin: 08/02/20 07:39 Dose: 50 mg Documented by: A/P Narrative A/P Narrative: * COVID-19 pneumonia-Remdesivir day 3 /dexamethasone. Interval worsening noted on chest imaging. Continue supportive treatment/thrombosis prophylaxis and empiric antibiotic for superimposed bacterial pneumonia coverage * Acute hypoxic respiratory failure secondary to Covid pneumonia. Currently on 5 L low flow oxygen. Frequent self proning * History of hypertension continue home dose spironolactone/losartan/thiazide with holding parameters * Low potassium and phosphorus continue replacement * Hypothyroidism thyroxine * GERD continue PPI * Chronic pain on oxycodone/tramadol * anxiety disorder continue sertraline * Hyperlipidemia continue statin * Full code * Prophylaxis twice daily Lovenox Plan * Low flow oxygen/remdesivir/dexamethasone * Frequent self proning * Serial imaging/blood gas, NIV if worsening respiratory failure * bID Lovenox * Pre-existing medical condition management home meds * Directed therapies/nutrition support/early mobilization as tolerated * Discharge planning per case management Time Spent With Patient Time: Total time spent is greater than 50% in coordination of care (as documented) at patient's floor/unit and/or counseling patient: QUALITY VTE Deep Vein Thrombosis/Pulmonary Embolism Present on Admission: No
--- NOTE | 2020-08-02 09:52 | XRay Report ---
HISTORY: Follow-up bilateral pneumonia FINDINGS: There are Persistent bilateral infiltrates, affecting the left side greater than right. This has become slightly worse in the central portion of the left lung compared with prior study on 07/31/20. There has been little change in the right lung. No pleural effusion is present. Left diaphragm remains mildly elevated. The heart size is normal. IMPRESSION: bilateral pneumonia, becoming worse on the left side Interpreted and Authenticated by: Bo Davenport 08/02/20
[2020-08-02] MEDS: REMDESIVIR 100 MG in 0.9 % SODIUM CHLORIDE 250 ML IV SCH (09:56)
[2020-08-02] MEDS: ONDANSETRON 4 MG/2 ML VIAL IV PRN (11:11)
--- NOTE | 2020-08-02 13:24 | Internal Med Progress Note ---
SUBJECTIVE Subjective Patient information: Note initiated : 08/02/20 at 1:19 pm Service Date, if different from initiated Date: [] Patient: Selena Jaquez a 74 y/o F admitted on 07/31/20 for weakness, diarrhea, fatigue. Chief Complaint: [] Interval history: Ms. Jaquez is a 74 year old F with history of hypertension/anxiety/hyperlipidemia and GERD who lives in a trailer home along with her son and has been feeling sick for the last couple of weeks since she was diagnosed with COVID-19 on July 17. She has had 2 ER visit on July 21 on with symptoms of diarrhea, malaise weakness and gradually getting lethargic unable to function. She was discharged home on ivermectin/zinc and advised conservative management as patient did not show any symptoms of Covid pneumonia. Over the last 3 days she has been getting increasingly dyspneic. Diarrhea has continued along with generalized myalgia/malaise. With increasing concerns she asked her son to bring her to the ER. Initial work-up was consistent with severe hypoxia requiring 4 L oxygen to maintain sats above 90. Chest x-ray bilateral infiltrates. Patient was started on steroids. Hospitalist service was consulted. At the time of my evaluation patient is anxious and lethargic but able to answer most the question endorses history as above. She endorses to loss of appetite but denies headache, photophobia or neck stiffness. She endorses to sick contacts including family members 08/01-patient significantly hypoxic with PaO2/FiO2 ratio less than 150. PO2 58, 4L oxygen. Currently fires oxygen multifocal chest infiltrates consistent with Covid pneumonia. White count 3.3 potassium 3.1 on replacement. Phosphorus 1.8 ferritin 572. On twice daily Lovenox. Procalcitonin 0.12. Transition to noninvasive ventilation if continue scheduled. Serial ABGs and chest imaging. 08/02-demonstrating gradual clinical improvement however requiring 5 L oxygen to maintain saturations. Multifocal pneumonia. On remdesivir/dexamethasone. Low phosphorus 1.9 on replacement white count 6000, interval chest imaging worsening bilateral chest infiltrates. Continue COVID-19 precautions/thrombosis prophylaxis/supportive management. Empiric antibiotic for superimposed bacterial pneumonia coverage, no additional concerns expressed by nursing staff. Constitutional Vitals: Vital Signs Temp Pulse Resp BP Pulse Ox 98.2 F 57 L 17 100/69 92 08/02/20 08:02 08/02/20 08:02 08/02/20 08:02 08/02/20 08:02 08/02/20 08:02 Period Temp Pulse Resp BP Sys/Garay Pulse Ox Last 24 Hr 97.8 F-98.2 F 57-77 13-19 93-113/54-82 92-98 Intake and Output 08/01/20 08/02/20 08/02/20 21:59 05:59 13:59 Intake Total 120 200 820 Output Total 500 250 Balance -380 -50 820 Weight 110.903 kg Intake & Output: Intake & Output 08/01/20 08/02/20 08/02/20 21:59 05:59 13:59 Intake Total 120 200 820 Output Total 500 250 Balance -380 -50 820 Weight 110.903 kg Intake: IV 820 Zithromax 500 mg In Dextrose 5% 250 in Water 250 ml @ 250 mls/hr IV Q24H [facility] Rx#:[id number] Potassium Chloride 40 Meq In 520 Dextrose 5% in Water 500 ml @ 130 mls/hr IV UD PRN Rx#: [id number] Rocephin 2 gm In Dextrose 5% in 50 Water 50 ml @ 100 mls/hr IV Q24H [facility] Rx#:[id number] Oral 120 200 Output: Void Amount 250 Urine/Stool Mix 500 Other: Meal Dinner Percent of Meal Consumed 75% Feeding Ability Independent Urine Color Dark Yellow Stool Size Small Stool Color Brown Stool Consistency Soft # Voids 150 # Bowel Movements 1 Exam: General: Alert, Awake, No acute Distress Eyes/N/T: EOMI, Head/Neck: neck supple, CV: RRR, No murmurs, Pulm: b/l, no wheezing/rhonchi/rales Abd: soft, nontender, +BS x4 Ext: no clubbing/cyanosis/edema Neuro: Alert, no focal deficits, moves all extremities, Skin: warm/dry OBJ DATA Labs CBC & Chem 7: 08/02/20 04:37 08/02/20 04:37 Labs: Abnormal Lab Results 08/02/20 08/02/20 08/02/20 04:37 04:37 04:37 WBC RBC 3.59 L Hgb 11.1 L Hct 32.9 L Plt Count MPV 12.0 H Neut % (Auto) Lymph # (Auto) 0.99 L D-Dimer 0.85 H Potassium Chloride Anion Gap 7.0 L Glucose Calcium 7.9 L Phosphorus 1.9 L Ferritin AST Lactate Dehydrogenase 254 H Albumin 2.7 L Globulin Albumin/Globulin Ratio 0.8 L Procalcitonin Urine Nitrate Ur Leukocyte Esterase Urine WBC Urine Bacteria 08/02/20 08/01/20 08/01/20 04:37 04:26 04:25 WBC RBC Hgb Hct Plt Count MPV Neut % (Auto) Lymph # (Auto) D-Dimer Potassium 3.1 L Chloride Anion Gap Glucose 125 H Calcium 7.5 L Phosphorus 1.8 L Ferritin AST 32 H Lactate Dehydrogenase 277 H Albumin 2.7 L Globulin Albumin/Globulin Ratio 0.8 L Procalcitonin 0.11 H 0.12 H Urine Nitrate Ur Leukocyte Esterase Urine WBC Urine Bacteria 08/01/20 08/01/20 07/31/20 04:25 04:25 19:30 WBC 3.3 L RBC 3.42 L Hgb 10.7 L Hct 31.2 L Plt Count 137 L MPV 12.1 H Neut % (Auto) 78.7 H Lymph # (Auto) 0.50 L D-Dimer 0.84 H Potassium Chloride Anion Gap Glucose Calcium Phosphorus Ferritin AST Lactate Dehydrogenase Albumin Globulin Albumin/Globulin Ratio Procalcitonin 0.15 H Urine Nitrate Ur Leukocyte Esterase Urine WBC Urine Bacteria 07/31/20 07/31/20 07/31/20 19:30 19:30 19:30 WBC RBC Hgb Hct Plt Count MPV Neut % (Auto) Lymph # (Auto) D-Dimer 1.12 H Potassium Chloride 93 L Anion Gap Glucose 114 H Calcium 8.2 L Phosphorus Ferritin 572.0 H AST Lactate Dehydrogenase Albumin 3.0 L Globulin 3.8 H Albumin/Globulin Ratio 0.8 L Procalcitonin Urine Nitrate Ur Leukocyte Esterase Urine WBC Urine Bacteria 07/31/20 07/31/20 19:30 07:55 WBC 4.3 L RBC 3.75 L Hgb 11.4 L Hct 33.3 L Plt Count MPV 11.9 H Neut % (Auto) Lymph # (Auto) 0.68 L D-Dimer Potassium Chloride Anion Gap Glucose Calcium Phosphorus Ferritin AST Lactate Dehydrogenase Albumin Globulin Albumin/Globulin Ratio Procalcitonin Urine Nitrate Pos A Ur Leukocyte Esterase 250 A Urine WBC 5 H Urine Bacteria Few A Meds: Medications Acetaminophen (Tylenol) 650 mg PO Q4-6HP PRN; Protocol PRN Reason: Per Pain Protocol/Fever > 101 Last Admin: 08/02/20 07:38 Dose: 650 mg Documented by: Albuterol Sulfate (Ventolin) 1 - 2 puff INH Q4HP PRN PRN Reason: Shortness Of Breath Atorvastatin Calcium (Lipitor) 10 mg PO HS [facility] Last Admin: 08/01/20 20:33 Dose: 10 mg Documented by: Bisacodyl (Dulcolax) 10 mg [place] Q2-3DAYS PRN PRN Reason: Constipation Dexamethasone (Decadron) 6 mg PO DAILY [facility] Last Admin: 08/02/20 08:39 Dose: 6 mg Documented by: Diphenhydramine HCl (Benadryl) 25 mg PO Q6HP PRN PRN Reason: Allergy Symptoms Docusate Sodium (Colace) 100 mg PO BID [facility] Last Admin: 08/02/20 08:39 Dose: Not Given Documented by: Enoxaparin Sodium (Lovenox) 40 mg SQ BID [facility] Last Admin: 08/02/20 08:39 Dose: 40 mg Documented by: Azithromycin 500 mg/ Dextrose 250 mls @ 250 mls/hr IV Q24H [facility]; Protocol Stop: 08/02/20 23:59 Last Admin: 08/02/20 08:45 Dose: 250 mls/hr Documented by: REMDESIVIR 100 mg/ Sodium (Chloride) 250 mls @ 500 mls/hr IV Q24H [facility] Stop: 08/04/20 10:29 Last Admin: 08/02/20 09:56 Dose: 500 mls/hr Documented by: Potassium Chloride 40 meq/ (Dextrose) 520 mls @ 130 mls/hr IV UD PRN PRN Reason: K+ = or < 3.5 Last Infusion: 08/02/20 06:42 Dose: Infused Documented by: Acetaminophen (Ofirmev) 650 mg in 65 mls @ 130 mls/hr IV Q6HP PRN; Protocol PRN Reason: Per Pain Protocol/Fever > 101 Magnesium Sulfate (Magnesium Sulfate) 2 gm in 50 mls @ 50 mls/hr IV UD PRN PRN Reason: MG = or < 1.7 Ceftriaxone Sodium 2 gm/ (Dextrose) 50 mls @ 100 mls/hr IV Q24H [facility]; Protocol Last Admin: 08/02/20 07:38 Dose: 100 mls/hr Documented by: Iron Carb/Multivit/[place]/Folic Acid (Multivitamin W/Minerals) 1 tab PO DAILY [facility] Last Admin: 08/02/20 08:39 Dose: 1 tab Documented by: Levothyroxine Sodium (Synthroid) 88 mcg PO [facility] Last Admin: 08/02/20 07:38 Dose: 88 mcg Documented by: Melatonin (Melatonin 3mg Tablet) 3 mg PO HSP PRN PRN Reason: Insomnia Nystatin (Nystatin) 1 dose TOPICAL BIDP PRN PRN Reason: FUNGAL INFECTION Omeprazole (Prilosec) 20 mg PO B [facility] Last Admin: 08/02/20 07:38 Dose: 20 mg Documented by: Ondansetron HCl (Zofran Odt) 4 mg SL Q4-6HP PRN; Protocol PRN Reason: Nausea And Vomiting Ondansetron HCl (Zofran) 4 mg IV Q4-6HP PRN; Protocol PRN Reason: Nausea And Vomiting Last Admin: 08/02/20 11:11 Dose: 4 mg Documented by: Oxybutynin Chloride (Ditropan Xl) 10 mg PO [facility] Last Admin: 08/01/20 20:33 Dose: 10 mg Documented by: Oxycodone/Acetaminophen (Percocet 5-325 Mg) 1 tab PO BIDP PRN; Protocol PRN Reason: Pain, Moderate Polyethylene Glycol (Miralax) 17 gm PO DAILYP PRN PRN Reason: Constipation Potassium Chloride (Klor-Con) 40 meq PO DAILYP PRN PRN Reason: K+ < 3.5 Last Admin: 08/01/20 12:23 Dose: 40 meq Documented by: Potassium Chloride (Kdur) 15 meq PO [facility] Last Admin: 08/02/20 08:39 Dose: 15 meq Documented by: Potassium/Phosphorus/Sodium (Neutra Phos) 2 packet PO DAILYP PRN PRN Reason: PHOS <2.5 Last Admin: 08/01/20 12:23 Dose: 2 packet Documented by: Primidone (Mysoline) 50 mg PO QDAY [facility] Last Admin: 08/02/20 08:45 Dose: 50 mg Documented by: Senna/Docusate Sodium (Senna Plus Tablet) 1 tab PO [facility] Last Admin: 08/01/20 20:08 Dose: Not Given Documented by: Sertraline HCl (Zoloft) 200 mg PO QHS [facility] Last Admin: 08/01/20 20:33 Dose: 200 mg Documented by: Sodium Chloride (Saline Flush) 10 ml IV Q8 [facility] Last Admin: 08/02/20 05:40 Dose: 10 ml Documented by: Tramadol HCl (Ultram) 50 mg PO TID [facility]; Protocol Last Admin: 08/02/20 07:39 Dose: 50 mg Documented by: A/P Narrative A/P Narrative: A: *COVID-19 PNA: -Interval worsening noted on chest imaging. *Acute hypoxic respiratory failure: secondary to above -Currently on 5 L low flow oxygen. Frequent self proning *HTN: home dose spironolactone/losartan/thiazide with holding parameters *Low potassium and phosphorus: continue replacement *Hypothyroidism: thyroxine *GERD: continue PPI *Chronic pain: on oxycodone/tramadol *anxiety disorder: continue sertraline Plan: -Low flow oxygen/remdesivir/dexamethasone -empiric antibiotic for superimposed bacterial pneumonia coverage -Frequent self proning -Serial imaging/blood gas, NIV if worsening respiratory failure -Directed therapies/nutrition support/early mobilization as tolerated, pt/ot -Discharge planning per case management -ppx: bid lovenox Full code Time Spent With Patient Time: Total time spent is greater than 50% in coordination of care (as documented) at patient's floor/unit and/or counseling patient: QUALITY VTE Deep Vein Thrombosis/Pulmonary Embolism Present on Admission: No
[2020-08-02] MEDS: SENNOSIDES/DOCUSATE SODIUM 1 TAB TABLET PO SCH (20:53)
[2020-08-02] MEDS: ATORVASTATIN 10 MG TABLET PO SCH (21:04)
[2020-08-02] MEDS: SERTRALINE 100 MG TABLET PO SCH (21:04)
[2020-08-02] MEDS: OXYBUTYNIN CHLORIDE 5 MG TAB.XL.24H PO SCH (21:04)
[2020-08-03] MEDS: 0.9 % SODIUM CHLORIDE 10 ML SYRINGE IV SCH ×4 (05:59→21:44)
[2020-08-03 06:45] LABS: ALT/SGPT 13 U/L (<40); AST/SGOT 17 U/L (<32); Albumin 2.5 gm/dL (3.2-5.2); Albumin/Globulin Ratio 0.7 (1.0-2.3); Alkaline Phosphatase 85 U/L (39-117); Bilirubin,Direct < 0.2 mg/dL (<0.3); Bilirubin,Total 0.5 mg/dL (0.1-1.0); Blood Urea Nitrogen 18 mg/dL (8-23); Calcium 7.6 mg/dL (8.6-10.4); Carbon Dioxide 27 mmol/L (22-30); Chloride 101 mmol/L (96-108); Globulin 3.5 gm/dL (2.2-3.7); Glomerular Filtration Rate 73; Glucose 80 mg/dL (70-105); Lactate Dehydrogenase 239 U/L (135-225); Phosphorous 2.2 mg/dL (2.5-4.5); Triglycerides 108 mg/dL (<150); Uric Acid 4.3 mg/dL (2.5-8.0)
[2020-08-03] MEDS: LEVOTHYROXINE 88 MCG TABLET PO SCH (07:31)
[2020-08-03] MEDS: OMEPRAZOLE 20 MG CAPSULE PO SCH (07:31)
[2020-08-03] MEDS: cefTRIAXone 2 GM in DEXTROSE 5% IN WATER 50 ML IV SCH (07:32)
--- NOTE | 2020-08-03 07:44 | Internal Med Progress Note ---
SUBJECTIVE Subjective Patient information: Note initiated : 08/03/20 at 7:42 am Service Date, if different from initiated Date: [] Patient: Selena Jaquez a 74 y/o F admitted on 07/31/20 for weakness, diarrhea, fatigue. Chief Complaint: [] Interval history: Ms. Jaquez is a 74 year old F with history of hypertension/anxiety/hyperlipidemia and GERD who lives in a trailer home along with her son and has been feeling sick for the last couple of weeks since she was diagnosed with COVID-19 on July 17. She has had 2 ER visit on July 21 on with symptoms of diarrhea, malaise weakness and gradually getting lethargic unable to function. She was discharged home on ivermectin/zinc and advised conservative management as patient did not show any symptoms of Covid pneumonia. Over the last 3 days she has been getting increasingly dyspneic. Diarrhea has continued along with generalized myalgia/malaise. With increasing concerns she asked her son to bring her to the ER. Initial work-up was consistent with severe hypoxia requiring 4 L oxygen to maintain sats above 90. Chest x-ray bilateral infiltrates. Patient was started on steroids. Hospitalist service was consulted. At the time of my evaluation patient is anxious and lethargic but able to answer most the question endorses history as above. She endorses to loss of appetite but denies headache, photophobia or neck stiffness. She endorses to sick contacts including family members 08/01-patient significantly hypoxic with PaO2/FiO2 ratio less than 150. PO2 58, 4L oxygen. Currently fires oxygen multifocal chest infiltrates consistent with Covid pneumonia. White count 3.3 potassium 3.1 on replacement. Phosphorus 1.8 ferritin 572. On twice daily Lovenox. Procalcitonin 0.12. Transition to noninvasive ventilation if continue scheduled. Serial ABGs and chest imaging. /2-demonstrating gradual clinical improvement however requiring 5 L oxygen to maintain saturations. Multifocal pneumonia. On remdesivir/dexamethasone. Low phosphorus 1.9 on replacement white count 6000, interval chest imaging worsening bilateral chest infiltrates. Continue COVID-19 precautions/thrombosis prophylaxis/supportive management. Empiric antibiotic for superimposed bacterial pneumonia coverage, no additional concerns expressed by nursing staff. 1/3 Feeling better overall. Has mildly productive cough. Shortness of breath improving. Oxygen requirements slowly improving as she is down to 2-3L. Review of Systems: denies headache/fever/nausea/vomiting/chest or abdominal pain/diarrhea. Otherwise see above. Constitutional Vitals: Vital Signs Temp Pulse Resp BP Pulse Ox 98.2 F 50 L 17 101/67 94 08/03/20 04:01 08/03/20 04:01 08/03/20 04:01 08/03/20 04:01 08/03/20 04:01 Period Temp Pulse Resp BP Sys/Garay Pulse Ox Last 24 Hr 98.2 F-98.4 F 48-66 13-25 89-125/58-73 91-97 Intake and Output 08/02/20 08/03/20 08/03/20 21:59 05:59 13:59 Intake Total 120 250 Output Total 550 Balance 120 -550 250 Weight 110.45 kg Intake & Output: Intake & Output 08/02/20 08/03/20 08/03/20 21:59 05:59 13:59 Intake Total 120 250 Output Total 550 Balance 120 -550 250 Weight 110.45 kg Intake: IV 250 Zithromax 500 mg In Dextrose 5% 250 in Water 250 ml @ 250 mls/hr IV Q24H [facility] Rx#:[id number] Oral 120 Output: Void Amount 550 Other: Urine Appearance Clear Urine Color Dark Yellow Pale Urine Odor Strong Stool Size Small Stool Color Brown Stool Consistency Soft Exam: General: Alert, Awake, No acute Distress Eyes/N/T: EOMI, Head/Neck: neck supple, CV: RRR, No murmurs, Pulm: mild b/l rhonchi L>R, diminished Abd: soft, nontender, +BS x4 Ext: no clubbing/cyanosis, 1+ b/l LE edema Neuro: Alert, no focal deficits, moves all extremities, Skin: warm/dry OBJ DATA Labs CBC & Chem 7: 08/02/20 04:37 08/03/20 05:19 Labs: Abnormal Lab Results 08/03/20 08/02/20 08/02/20 05:19 04:37 04:37 WBC RBC Hgb Hct Plt Count MPV Neut % (Auto) Lymph # (Auto) D-Dimer 0.85 H Potassium Chloride Anion Gap 7.0 L Glucose Calcium 7.6 L 7.9 L Phosphorus 2.2 L 1.9 L Ferritin AST Lactate Dehydrogenase 239 H 254 H Albumin 2.5 L 2.7 L Globulin Albumin/Globulin Ratio 0.7 L 0.8 L Procalcitonin Urine Nitrate Ur Leukocyte Esterase Urine WBC Urine Bacteria 08/02/20 08/02/20 08/01/20 04:37 04:37 04:26 WBC RBC 3.59 L Hgb 11.1 L Hct 32.9 L Plt Count MPV 12.0 H Neut % (Auto) Lymph # (Auto) 0.99 L D-Dimer Potassium Chloride Anion Gap Glucose Calcium Phosphorus Ferritin AST Lactate Dehydrogenase Albumin Globulin Albumin/Globulin Ratio Procalcitonin 0.11 H 0.12 H Urine Nitrate Ur Leukocyte Esterase Urine WBC Urine Bacteria 08/01/20 08/01/20 08/01/20 04:25 04:25 04:25 WBC 3.3 L RBC 3.42 L Hgb 10.7 L Hct 31.2 L Plt Count 137 L MPV 12.1 H Neut % (Auto) 78.7 H Lymph # (Auto) 0.50 L D-Dimer 0.84 H Potassium 3.1 L Chloride Anion Gap Glucose 125 H Calcium 7.5 L Phosphorus 1.8 L Ferritin AST 32 H Lactate Dehydrogenase 277 H Albumin 2.7 L Globulin Albumin/Globulin Ratio 0.8 L Procalcitonin Urine Nitrate Ur Leukocyte Esterase Urine WBC Urine Bacteria 07/31/20 07/31/20 07/31/20 19:30 19:30 19:30 WBC RBC Hgb Hct Plt Count MPV Neut % (Auto) Lymph # (Auto) D-Dimer Potassium Chloride 93 L Anion Gap Glucose 114 H Calcium 8.2 L Phosphorus Ferritin 572.0 H AST Lactate Dehydrogenase Albumin 3.0 L Globulin 3.8 H Albumin/Globulin Ratio 0.8 L Procalcitonin 0.15 H Urine Nitrate Ur Leukocyte Esterase Urine WBC Urine Bacteria 07/31/20 07/31/20 07/31/20 19:30 19:30 07:55 WBC 4.3 L RBC 3.75 L Hgb 11.4 L Hct 33.3 L Plt Count MPV 11.9 H Neut % (Auto) Lymph # (Auto) 0.68 L D-Dimer 1.12 H Potassium Chloride Anion Gap Glucose Calcium Phosphorus Ferritin AST Lactate Dehydrogenase Albumin Globulin Albumin/Globulin Ratio Procalcitonin Urine Nitrate Pos A Ur Leukocyte Esterase 250 A Urine WBC 5 H Urine Bacteria Few A Meds: Medications Acetaminophen (Tylenol) 650 mg PO Q4-6HP PRN; Protocol PRN Reason: Per Pain Protocol/Fever > 101 Last Admin: 08/02/20 07:38 Dose: 650 mg Documented by: Albuterol Sulfate (Ventolin) 1 - 2 puff INH Q4HP PRN PRN Reason: Shortness Of Breath Atorvastatin Calcium (Lipitor) 10 mg PO HS [facility] Last Admin: 08/02/20 21:04 Dose: 10 mg Documented by: Bisacodyl (Dulcolax) 10 mg [place] Q2-3DAYS PRN PRN Reason: Constipation Dexamethasone (Decadron) 6 mg PO DAILY [facility] Last Admin: 08/02/20 08:39 Dose: 6 mg Documented by: Diphenhydramine HCl (Benadryl) 25 mg PO Q6HP PRN PRN Reason: Allergy Symptoms Docusate Sodium (Colace) 100 mg PO BID [facility] Last Admin: 08/02/20 20:53 Dose: Not Given Documented by: Enoxaparin Sodium (Lovenox) 40 mg SQ BID [facility] Last Admin: 08/02/20 21:04 Dose: 40 mg Documented by: REMDESIVIR 100 mg/ Sodium (Chloride) 250 mls @ 500 mls/hr IV Q24H [facility] Stop: 08/04/20 10:29 Last Admin: 08/02/20 09:56 Dose: 500 mls/hr Documented by: Potassium Chloride 40 meq/ (Dextrose) 520 mls @ 130 mls/hr IV UD PRN PRN Reason: K+ = or < 3.5 Last Infusion: 08/02/20 06:42 Dose: Infused Documented by: Acetaminophen (Ofirmev) 650 mg in 65 mls @ 130 mls/hr IV Q6HP PRN; Protocol PRN Reason: Per Pain Protocol/Fever > 101 Magnesium Sulfate (Magnesium Sulfate) 2 gm in 50 mls @ 50 mls/hr IV UD PRN PRN Reason: MG = or < 1.7 Ceftriaxone Sodium 2 gm/ (Dextrose) 50 mls @ 100 mls/hr IV Q24H [facility]; Protocol Last Admin: 08/03/20 07:32 Dose: 100 mls/hr Documented by: Iron Carb/Multivit/[employer]/Folic Acid (Multivitamin W/Minerals) 1 tab PO DAILY [facility] Last Admin: 08/02/20 08:39 Dose: 1 tab Documented by: Levothyroxine [facility] ([facility]th[facility]) [facility] Last Admin: 08/03/20 07:31 Dose: 88 mcg Documented by: Melatonin (Melatonin 3mg Tablet) 3 mg PO HSP PRN PRN Reason: Insomnia Nystatin (Nystatin) 1 dose TOPICAL BIDP PRN PRN Reason: FUNGAL INFECTION Omeprazole (Prilosec) 20 mg PO ACB [facility] Last Admin: 08/03/20 07:31 Dose: 20 mg Documented by: Ondansetron HCl (Zofran Odt) 4 mg SL Q4-6HP PRN; Protocol PRN Reason: Nausea And Vomiting Ondansetron HCl (Zofran) 4 mg IV Q4-6HP PRN; Protocol PRN Reason: Nausea And Vomiting Last Admin: 08/02/20 11:11 Dose: 4 mg Documented by: Oxybutynin Chloride (Ditropan Xl) [address] [facility] Last Admin: 08/02/20 21:04 Dose: 10 mg Documented by: Oxycodone/Acetaminophen (Percocet 5-325 Mg) 1 tab PO BIDP PRN; Protocol PRN Reason: Pain, Moderate Polyethylene Glycol (Miralax) 17 gm PO DAILYP PRN PRN Reason: Constipation Potassium Chloride (Klor-Con) 40 meq PO DAILYP PRN PRN Reason: K+ < 3.5 Last Admin: 08/01/20 12:23 Dose: 40 meq Documented by: Potassium Ch[facility]ide (Kdur) [facility] Last Admin: 08/02/20 08:39 Dose: 15 meq Documented by: Potassium/Phosphorus/Sodium (Neutra Phos) 2 packet PO DAILYP PRN PRN Reason: PHOS <2.5 Last Admin: 08/01/20 12:23 Dose: 2 packet Documented by: Primidone (Mysoline) 50 mg PO QDAY [facility] Last Admin: 08/02/20 08:45 Dose: 50 mg Documented by: Senna/Docusate Sodium (Senna Plus Tablet) [address] [facility] Last Admin: 08/02/20 20:53 Dose: Not Given Documented by: Sertraline HCl (Zoloft) 200 mg PO QHS [facility] Last Admin: 08/02/20 21:04 Dose: 200 mg Documented by: Sodium Chloride (Saline Flush) 10 ml IV Q8 [facility] Last Admin: 08/03/20 05:59 Dose: 10 ml Documented by: Tramadol HCl (Ultram) 50 mg PO TID [facility]; Protocol Last Admin: 08/02/20 21:04 Dose: 50 mg Documented by: Zinc Sulfate (Zinc) 50 mg PO DAILY [facility] A/P Narrative A/P Narrative: A: *COVID-19 PNA: -Interval worsening on left noted on chest imaging. *Acute hypoxic respiratory failure: secondary to above -down to 2-3L NC. self proning *HTN: home dose spironolactone/losartan/thiazide with holding parameters *Low potassium and phosphorus: continue replacement *Hypothyroidism: thyroxine *GERD: continue PPI *Chronic pain: on oxycodone/tramadol *anxiety disorder: continue sertraline Plan: -Low flow oxygen/remdesivir/dexamethasone -empiric antibiotic for superimposed bacterial pneumonia coverage -Frequent self proning, IS/Acapella -Serial imaging/blood gas, NIV if worsening respiratory failure -Directed therapies/nutrition support/early mobilization as tolerated, pt/ot -Discharge planning per case management -ppx: bid lovenox Full code Time Spent With Patient Time: Total time spent is greater than 50% in coordination of care (as documented) at patient's floor/unit and/or counseling patient: QUALITY VTE Deep Vein Thrombosis/Pulmonary Embolism Present on Admission: No
[2020-08-03] MEDS: ZINC SULFATE 50 MG CAPSULE PO SCH (08:07)
[2020-08-03] MEDS: ENOXAPARIN 40 MG/0.4 ML SYRINGE SQ SCH ×2 (08:07→21:36)
[2020-08-03] MEDS: DEXAMETHASONE 4 MG TABLET PO SCH (08:07)
[2020-08-03] MEDS: POTASSIUM CHLORIDE 10 MEQ TABLET PO SCH (08:07)
[2020-08-03] MEDS: traMADol 50 MG TABLET PO SCH ×3 (08:07→21:34)
[2020-08-03] MEDS: NEUTRA PHOS 1 PACKET PO SCH ×2 (08:07→21:35)
[2020-08-03] MEDS: PRIMIDONE 50 MG TABLET PO SCH (08:07)
[2020-08-03] MEDS: MULTIVIT,THER IRON,CA,FA & MIN 1 TABLET PO SCH (08:07)
[2020-08-03] MEDS: DOCUSATE SODIUM 100 MG CAPSULE PO SCH ×2 (08:08→21:44)
[2020-08-03] MEDS ORDERED: ALBUMIN HUMAN 12.5 GM/50 ML BAG IV ONE (09:22)
[2020-08-03] MEDS ORDERED: FUROSEMIDE 40 MG/4 ML VIAL IV ONE (09:22)
[2020-08-03] MEDS: REMDESIVIR 100 MG in 0.9 % SODIUM CHLORIDE 250 ML IV SCH (09:44)
[2020-08-03] MEDS: ACETAMINOPHEN 325 MG TABLET PO PRN (19:22)
[2020-08-03] MEDS: OXYBUTYNIN CHLORIDE 5 MG TAB.XL.24H PO SCH (21:44)
[2020-08-03] MEDS: ATORVASTATIN 10 MG TABLET PO SCH (21:44)
[2020-08-03] MEDS: SENNOSIDES/DOCUSATE SODIUM 1 TAB TABLET PO SCH ×2 (21:44→22:39)
[2020-08-03] MEDS: SERTRALINE 100 MG TABLET PO SCH (21:44)
[2020-08-04] MEDS: 0.9 % SODIUM CHLORIDE 10 ML SYRINGE IV SCH ×3 (05:36→21:26)
--- NOTE | 2020-08-04 07:35 | Internal Med Progress Note ---
SUBJECTIVE Subjective Patient information: Note initiated : 08/04/20 at 7:34 am Service Date, if different from initiated Date: [] Patient: Selena Jaquez a 74 y/o F admitted on 07/31/20 for weakness, diarrhea, fatigue. Chief Complaint: [] Interval history: Ms. Jaquez is a 74 year old F with history of hypertension/anxiety/hyperlipidemia and GERD who lives in a trailer home along with her son and has been feeling sick for the last couple of weeks since she was diagnosed with COVID-19 on July 17. She has had 2 ER visit on July 21 on with symptoms of diarrhea, malaise weakness and gradually getting lethargic unable to function. She was discharged home on ivermectin/zinc and advised conservative management as patient did not show any symptoms of Covid pneumonia. Over the last 3 days she has been getting increasingly dyspneic. Diarrhea has continued along with generalized myalgia/malaise. With increasing concerns she asked her son to bring her to the ER. Initial work-up was consistent with severe hypoxia requiring 4 L oxygen to maintain sats above 90. Chest x-ray bilateral infiltrates. Patient was started on steroids. Hospitalist service was consulted. At the time of my evaluation patient is anxious and lethargic but able to answer most the question endorses history as above. She endorses to loss of appetite but denies headache, photophobia or neck stiffness. She endorses to sick contacts including family members 08/01-patient significantly hypoxic with PaO2/FiO2 ratio less than 150. PO2 58, 4L oxygen. Currently fires oxygen multifocal chest infiltrates consistent with Covid pneumonia. White count 3.3 potassium 3.1 on replacement. Phosphorus 1.8 ferritin 572. On twice daily Lovenox. Procalcitonin 0.12. Transition to noninvasive ventilation if continue scheduled. Serial ABGs and chest imaging. 08/02-demonstrating gradual clinical improvement however requiring 5 L oxygen to maintain saturations. Multifocal pneumonia. On remdesivir/dexamethasone. Low phosphorus 1.9 on replacement white count 6000, interval chest imaging worsening bilateral chest infiltrates. Continue COVID-19 precautions/thrombosis prophylaxis/supportive management. Empiric antibiotic for superimposed bacterial pneumonia coverage, no additional concerns expressed by nursing staff. 1/3 Feeling better overall. Has mildly productive cough. Shortness of breath improving. Oxygen requirements slowly improving as she is down to 2-3L. 08/04 Patient is feeling fine. She denies any shortness of breath at rest. She is requiring 2 L of oxygen. Feels is good or better than yesterday. Hoping to discharge soon. Remdesivir to finish today. Occasional cough. Review of Systems: denies headache/fever/nausea/vomiting/chest or abdominal pain/diarrhea. Otherwise see above. Constitutional Vitals: Vital Signs Temp Pulse Resp BP Pulse Ox 97.8 F 101 H 26 H 127/82 94 08/04/20 04:01 08/04/20 05:36 08/04/20 05:36 08/04/20 04:01 08/04/20 05:36 Period Temp Pulse Resp BP Sys/Garay Pulse Ox Last 24 Hr 97.0 F-98.2 F 52-101 14-29 73-127/56-87 89-96 Intake and Output 08/03/20 08/04/20 08/04/20 21:59 05:59 13:59 Intake Total 350 Output Total 475 175 Balance -125 -175 Weight 108.635 kg Intake & Output: Intake & Output 08/03/20 08/04/20 08/04/20 21:59 05:59 13:59 Intake Total 350 Output Total 475 175 Balance -125 -175 Weight 108.635 kg Intake: IV 350 Veklury 100 mg In Sodium 250 Chloride 0.9% 250 ml @ 500 mls/ hr IV Q24H [facility] Rx#:[id number] Rocephin 2 gm In Dextrose 5% in 50 Water 50 ml @ 100 mls/hr IV Q24H [facility] Rx#:[id number] Output: Void Amount 475 175 Other: Urine Appearance Clear Clear Urine Color Pale Pale Exam: General: Alert, Awake, No acute Distress Eyes/N/T: EOMI, Head/Neck: neck supple, CV: RRR, No murmurs, Pulm: mild b/l rhonchi L>R improving, diminished Abd: soft, nontender, +BS x4 Ext: no clubbing/cyanosis, 1+ b/l LE edema Neuro: Alert, no focal deficits, moves all extremities, Skin: warm/dry OBJ DATA Labs CBC & Chem 7: 08/02/20 04:37 08/04/20 05:57 Labs: Abnormal Lab Results 01/10/1908/02/20 08/02/20 05:19 04:37 04:37 RBC Hgb Hct MPV Lymph # (Auto) D-Dimer 0.85 H Potassium Anion Gap 7.0 L Glucose Calcium 7.6 L 7.9 L Phosphorus 2.2 L 1.9 L AST Lactate Dehydrogenase 239 H 254 H Albumin 2.5 L 2.7 L Albumin/Globulin Ratio 0.7 L 0.8 L Procalcitonin Urine Nitrate Ur Leukocyte Esterase Urine WBC Urine Bacteria 08/02/20 08/02/20 08/01/20 04:37 04:37 04:26 RBC 3.59 L Hgb 11.1 L Hct 32.9 L MPV 12.0 H Lymph # (Auto) 0.99 L D-Dimer Potassium Anion Gap Glucose Calcium Phosphorus AST Lactate Dehydrogenase Albumin Albumin/Globulin Ratio Procalcitonin 0.11 H 0.12 H Urine Nitrate Ur Leukocyte Esterase Urine WBC Urine Bacteria 08/01/20 08/01/20 07/31/20 04:25 04:25 07:55 RBC Hgb Hct MPV Lymph # (Auto) D-Dimer 0.84 H Potassium 3.1 L Anion Gap Glucose 125 H Calcium 7.5 L Phosphorus 1.8 L AST 32 H Lactate Dehydrogenase 277 H Albumin 2.7 L Albumin/Globulin Ratio 0.8 L Procalcitonin Urine Nitrate Pos A Ur Leukocyte Esterase 250 A Urine WBC 5 H Urine Bacteria Few A Meds: Medications Acetaminophen (Tylenol) 650 mg PO Q4-6HP PRN; Protocol PRN Reason: Per Pain Protocol/Fever > 101 Last Admin: 08/03/20 19:22 Dose: 650 mg Documented by: Albuterol Sulfate (Ventolin) 1 - 2 puff INH Q4HP PRN PRN Reason: Shortness Of Breath Atorvastatin Calcium (Lipitor) 10 mg PO HS [facility] Last Admin: 08/03/20 21:44 Dose: 10 mg Documented by: Bisacodyl (Dulcolax) 10 mg [place] Q2-3DAYS PRN PRN Reason: Constipation Dexamethasone (Decadron) 6 mg PO DAILY [facility] Last Admin: 08/03/20 08:07 Dose: 6 mg Documented by: Diphenhydramine HCl (Benadryl) 25 mg PO Q6HP PRN PRN Reason: Allergy Symptoms Docusate Sodium (Colace) 100 mg PO BID [facility] Last Admin: 08/03/20 21:44 Dose: 100 mg Documented by: Enoxaparin Sodium (Lovenox) 40 mg SQ BID [facility] Last Admin: 08/03/20 21:36 Dose: 40 mg Documented by: REMDESIVIR 100 mg/ Sodium (Chloride) 250 mls @ 500 mls/hr IV Q24H [facility] Stop: 08/04/20 10:29 Last Infusion: 08/03/20 17:44 Dose: Infused Documented by: Potassium Chloride 40 meq/ (Dextrose) 520 mls @ 130 mls/hr IV UD PRN PRN Reason: K+ = or < 3.5 Last Infusion: 08/02/20 06:42 Dose: Infused Documented by: Acetaminophen (Ofirmev) 650 mg in 65 mls @ 130 mls/hr IV Q6HP PRN; Protocol PRN Reason: Per Pain Protocol/Fever > 101 Magnesium Sulfate (Magnesium Sulfate) 2 gm in 50 mls @ 50 mls/hr IV UD PRN PRN Reason: MG = or < 1.7 Ceftriaxone Sodium 2 gm/ (Dextrose) 50 mls @ 100 mls/hr IV Q24H [facility]; Protocol Last Infusion: 08/03/20 17:46 Dose: Infused Documented by: Iron Carb/Multivit/[employer]/Folic Acid (Multivitamin W/Minerals) 1 tab PO DAILY [facility] Last Admin: 08/03/20 08:07 Dose: 1 tab Documented by: Levothyroxine Sodium (Synthroid) 88 mcg PO QAMAC [facility] Last Admin: 08/03/20 07:31 Dose: 88 mcg Documented by: Melatonin (Melatonin 3mg Tablet) 3 mg PO HSP PRN PRN Reason: Insomnia Nystatin (Nystatin) 1 dose TOPICAL BIDP PRN PRN Reason: FUNGAL INFECTION Omeprazole (Prilosec) 20 mg PO ACB [facility] Last Admin: 08/03/20 07:31 Dose: 20 mg Documented by: Ondansetron HCl (Zofran Odt) 4 mg SL Q4-6HP PRN; Protocol PRN Reason: Nausea And Vomiting Ondansetron HCl (Zofran) 4 mg IV Q4-6HP PRN; Protocol PRN Reason: Nausea And Vomiting Last Admin: 08/02/20 11:11 Dose: 4 mg Documented by: Oxybutynin Chloride (Ditropan Xl) 10 mg PO HS [facility] Last Admin: 08/03/20 21:44 Dose: 10 mg Documented by: Oxycodone/Acetaminophen (Percocet 5-325 Mg) 1 tab PO BIDP PRN; Protocol PRN Reason: Pain, Moderate Last Admin: 08/04/20 02:43 Dose: 1 tab Documented by: Polyethylene Glycol (Miralax) 17 gm PO DAILYP PRN PRN Reason: Constipation Potassium Chloride (Klor-Con) 40 meq PO DAILYP PRN PRN Reason: K+ < 3.5 Last Admin: 08/01/20 12:23 Dose: 40 meq Documented by: Potassium Chloride (Kdur) 15 meq PO [facility] Last Admin: 08/03/20 08:07 Dose: 15 meq Documented by: Potassium/Phosphorus/Sodium (Neutra Phos) 2 packet PO DAILYP PRN PRN Reason: PHOS <2.5 Last Admin: 08/01/20 12:23 Dose: 2 packet Documented by: Primidone (Mysoline) 50 mg PO QDAY [facility] Last Admin: 08/03/20 08:07 Dose: 50 mg Documented by: Senna/Docusate Sodium (Senna Plus Tablet) 1 tab PO HS [facility] Last Admin: 08/03/20 22:39 Dose: Not Given Documented by: Sertraline HCl (Zoloft) 200 mg PO QHS [facility] Last Admin: 08/03/20 21:44 Dose: 200 mg Documented by: Sodium Chloride (Saline Flush) 10 ml IV Q8 [facility] Last Admin: 08/04/20 05:36 Dose: 10 ml Documented by: Tramadol HCl (Ultram) 50 mg PO TID [facility]; Protocol Last Admin: 08/03/20 21:34 Dose: 50 mg Documented by: Zinc Sulfate (Zinc) 50 mg PO DAILY [facility] Last Admin: 08/03/20 08:07 Dose: 50 mg Documented by: A/P Narrative A/P Narrative: A: *COVID-19 PNA: -Interval worsening on left noted on chest imaging. *Acute hypoxic respiratory failure: secondary to above -down to 2-3L NC. self proning *HTN: home spironolactone/losartan/thiazide *Low potassium and phosphorus: continue replacement *Hypothyroidism: thyroxine *GERD: continue PPI *Chronic pain: on oxycodone/tramadol *anxiety disorder: continue sertraline Plan: -Low flow oxygen/remdesivir/dexamethasone -empiric antibiotic for superimposed bacterial pneumonia coverage -Frequent self proning, IS/Acapella -Serial imaging/blood gas, NIV if worsening respiratory failure -Directed therapies/nutrition support/early mobilization as tolerated, pt/ot -holding hctz/ARB/aldactone, prn lasix -Discharge planning per case management -ppx: bid lovenox Full code Time Spent With Patient Time: Total time spent is greater than 50% in coordination of care (as documented) at patient's floor/unit and/or counseling patient: QUALITY VTE Deep Vein Thrombosis/Pulmonary Embolism Present on Admission: No
[2020-08-04 07:50] LABS: ALT/SGPT 20 U/L (<40); AST/SGOT 35 U/L (<32); Albumin 3.1 gm/dL (3.2-5.2); Albumin/Globulin Ratio 0.8 (1.0-2.3); Alkaline Phosphatase 108 U/L (39-117); Bilirubin,Direct < 0.2 mg/dL (<0.3); Blood Urea Nitrogen 29 mg/dL (8-23); Calcium 7.9 mg/dL (8.6-10.4); Carbon Dioxide 26 mmol/L (22-30); Chloride 95 mmol/L (96-108); Globulin 3.9 gm/dL (2.2-3.7); Glomerular Filtration Rate 45; Glucose 113 mg/dL (70-105); Lactate Dehydrogenase 369 U/L (135-225); Phosphorous 2.4 mg/dL (2.5-4.5); Triglycerides 111 mg/dL (<150); Uric Acid 5.1 mg/dL (2.5-8.0)
[2020-08-04] MEDS: OMEPRAZOLE 20 MG CAPSULE PO SCH (07:59)
[2020-08-04] MEDS: LEVOTHYROXINE 88 MCG TABLET PO SCH (07:59)
[2020-08-04 08:25] LABS: C-Reactive Protein 3.6 mg/dL (0.03-0.80)
[2020-08-04 08:29] LABS: Ferritin 593.4 ng/mL (30.0-400.0)
[2020-08-04] MEDS: cefTRIAXone 2 GM in DEXTROSE 5% IN WATER 50 ML IV SCH (09:00)
[2020-08-04] MEDS ORDERED: oxyCODONE/APAP 5/325MG TABLET PO PRN ×2 (09:14→14:52)
[2020-08-04] MEDS ORDERED: 0.9 % SODIUM CHLORIDE 500 ML IV SCH ×2 (09:15→14:52)
--- NOTE | 2020-08-04 09:16 | XRay Report ---
CLINICAL INFORMATION: f/u pna COMPARISON: 08/02/2020 FINDINGS: Cardiomediastinal silhouette and pulmonary vessels are normal. Bilateral infiltrates have improved considerably with minimal patchy residual in both mid lungs and right base. Small right pleural effusion noted. IMPRESSION: Improvement in bilateral infiltrates with minimal patchy residual in the midlungs and right base Interpreted and Authenticated by: Brandon Díaz 08/04/20
[2020-08-04] MEDS: REMDESIVIR 100 MG in 0.9 % SODIUM CHLORIDE 250 ML IV SCH (10:00)
[2020-08-04] MEDS ORDERED: IOPAMIDOL 100 ML BOTTLE IV ONE ×2 (11:21→14:52)
[2020-08-04] MEDS: ONDANSETRON 4 MG/2 ML VIAL IV PRN (12:12)
[2020-08-04] MEDS: MULTIVIT,THER IRON,CA,FA & MIN 1 TABLET PO SCH (12:28)
[2020-08-04] MEDS: DEXAMETHASONE 4 MG TABLET PO SCH (12:28)
[2020-08-04] MEDS: ENOXAPARIN 40 MG/0.4 ML SYRINGE SQ SCH ×2 (12:28→21:26)
[2020-08-04] MEDS: ZINC SULFATE 50 MG CAPSULE PO SCH (12:28)
[2020-08-04] MEDS: NEUTRA PHOS 1 PACKET PO PRN (12:29)
[2020-08-04] MEDS: traMADol 50 MG TABLET PO SCH ×3 (12:29→21:25)
[2020-08-04] MEDS: DOCUSATE SODIUM 100 MG CAPSULE PO SCH ×2 (12:30→21:26)
[2020-08-04] MEDS: POTASSIUM CHLORIDE 10 MEQ TABLET PO SCH (12:53)
[2020-08-04] MEDS: PRIMIDONE 50 MG TABLET PO SCH (12:54)
--- NOTE | 2020-08-04 13:42 | Cat Scan Report ---
CLINICAL INFORMATION: Abdominal pain COMPARISON: None. TECHNIQUE: Following enteric contrast, 80 cc of Isovue-370 were injected intravenously, and 60 seconds later, 0.625 mm helical slices were obtained from the mid heart through the subtrochanteric regions. Following reconstruction, 2.5 mm sagittal, coronal and axial reformatted images were processed and reviewed at bone, lung and soft tissue windows. Five minutes later, 0.625 mm helical slices were obtained from the mid heart through the kidneys and viewed at soft tissue windows.The exam was performed using radiation dose optimization techniques including, but not limited to, automated exposure control, adjustment of the mA and/or kV according to patient size and use of iterative reconstruction technique. FINDINGS: Lung bases show chronic bronchitis with tubular bronchiectasis in the subsegmental and segmental bronchi of the medial and posterior of both lower lobes with moderate patchy alveolar and groundglass infiltrates in the visualized lingular, right middle lobe and the lower lobes and tiny bilateral pleural effusions. These are all new findings. The heart is normal in size. A small hiatal hernia appreciated - as previously seen Abdominal images show mild fatty change within the liver. There is a 8 mm cyst in the lateral segment left hepatic lobe. Gallbladder and bile ducts are normal CBD is 5 mm. Moderate pancreatic atrophy is appreciated. There are two well-circumscribed bilobed low-attenuation lesions posterior to the pancreatic head - each 15 mm. These were seen, in retrospect, on the previous exam and shows only minimal enlargement over the past six years. They're likely small cysts. The adrenal glands, spleen, and right kidney are all normal. A 8.3 x 4.4 m stone in the UPJ region of the left kidney results in moderate hydronephrosis, renal edema and stranding. There are multiple smaller nonobstructing stones in the left renal calyces ranging up to 9 mm. Pelvic images show urinary bladder is normal. Normal-appearing postmenopausal uterus is 5.6 x 3 cm. The ovaries are normal. The remaining stomach, small bowel and large bowel are all normal. There is no free air, free fluid or adenopathy. Bone windows show no osseous abnormality. At L5-S1, broad disc spur complex results in severe bilateral IV foraminal narrowing impinging the exiting L5 nerve roots. IMPRESSION: 1. 8 mm stone, in the left UPJ, resulting in moderate left hydronephrosis. Multiple (greater than 10) nonobstructing stones ranging up to 9 mm seen in the calyces of the left kidney. 2. Moderate pancreatic atrophy. Two 15 mm adjacent low-attenuation lesions posterior to the pancreatic head shows only slight interval increase since the comparison CT over six years ago. They are almost certainly insignificant - likely small cysts 3. Small hiatal hernia - stable 4. Moderate patchy infiltrates in the inferior lower, right middle lobes and lingula are new. Consider aspiration. Small bilateral pleural effusions noted Interpreted and Authenticated by: Brandon Díaz 08/04/20
[2020-08-04] MEDS ORDERED: BISACODYL 10 MG SUPP.RECT PR PRN (14:52)
[2020-08-04] MEDS ORDERED: POTASSIUM CHLORIDE 20 MEQ PACKET PO PRN (14:52)
[2020-08-04] MEDS ORDERED: ACETAMINOPHEN 650 MG/65 ML BAG IV PRN (14:52)
[2020-08-04] MEDS ORDERED: ACETAMINOPHEN 325 MG TABLET PO PRN (14:52)
[2020-08-04] MEDS ORDERED: MAGNESIUM SULFATE 2 GM/50 ML BAG IV PRN (14:52)
[2020-08-04] MEDS ORDERED: ONDANSETRON 4 MG ODT TABLET SL PRN (14:52)
[2020-08-04] MEDS ORDERED: NYSTATIN POWDER BOTTLE 15GM TOPICAL PRN (14:52)
[2020-08-04] MEDS ORDERED: diphenhydrAMINE 25 MG CAPSULE PO PRN (14:52)
[2020-08-04] MEDS ORDERED: POTASSIUM CHLORIDE 40 MEQ in DEXTROSE 5% IN WATER 500 ML IV PRN (14:52)
[2020-08-04] MEDS ORDERED: NEUTRA PHOS 1 PACKET PO PRN (14:52)
[2020-08-04] MEDS ORDERED: POLYETHYLENE GLYCOL 3350 17 GM PACKET PO PRN (14:52)
[2020-08-04] MEDS ORDERED: ALBUTEROL SULFATE 200 PUFF INHALER INH PRN (14:52)
[2020-08-04] MEDS ORDERED: ONDANSETRON 4 MG/2 ML VIAL IV PRN (14:52)
[2020-08-04] MEDS ORDERED: MIDAZOLAM 2 MG/2 ML VIAL ONE (18:15)
[2020-08-04] MEDS ORDERED: KETAMINE 100 MG/ML ML ONE (18:15)
[2020-08-04] MEDS ORDERED: GLYCOPYRROLATE 0.2 MG/ML VIAL IV ONE (18:15)
[2020-08-04] MEDS ORDERED: ONDANSETRON 4 MG/2 ML VIAL ONE (18:15)
[2020-08-04] MEDS ORDERED: fentaNYL 100 MCG/2 ML VIAL IV ONE (18:15)
[2020-08-04] MEDS ORDERED: PROPOFOL 200 MG/20 ML VIAL IV ONE (18:15)
[2020-08-04] MEDS ORDERED: LIDOCAINE HCL/PF 100 MG/5 ML SYRINGE IV ONE (18:15)
--- NOTE | 2020-08-04 18:24 | Internal Medicine Consult Note ---
HPI Data of Consult Consult date: 08/04/20 Primary Care Provider: Sd Ugalde Consult Narrative Chief complaint: flank pain History of present illness: 74 y.o. female recovering from covid now on 2 liters O2 found to have new onset left flank pain. She has a h/o renal stones on the left and multiple procedures. Her urologist has retired. Ct scan revealed obstructing left UPJ stone and significant stone burden on the left. She has no fevers, chills, nausea, emesis, dysuria or hematuria. Plan is to place urgent stent to prevent any risk further comorbidities as she is recovering. The stone is 7-8 mm so passage on its own is not likely and given the stone burden on that side, there is concerns for UPJ obstruction. cc:: CC: Eh Li Constitutional Constitutional: Present fatigue, lethargy and malaise EENT Eyes: Absent dry eye, irritation and loss of vision Cardiovascular Cardiovascular: Present dyspnea; Absent chest pain and chest pain with activity Respiratory Respiratory: Present cough and dyspnea on exertion; Absent wheezing Gastrointestinal Gastrointestinal: Present as per HPI Genitourinary Genitourinary: Present as per HPI Musculoskeletal Musculoskeletal: Present muscle weakness; Absent numbness and tingling Integumentary Integumentary: Absent non-healing lesions, pruritus and jaundice Neurological Neurological: Absent dizziness, numbness and tingling Psychiatric Psychiatric: Present change in appetite; Absent behavioral changes and confusion Endocrine Endocrine: Absent palpitations, polydipsia and polyuria Hematologic/Lymphatic Hematologic/Lymphatic: Absent easy bleeding, easy bruising and lymphadenopathy Allergic/Immunologic Allergic/Immunologic: Absent tongue swelling, throat swelling and uticaria PFSH PFSH All Active Problems (Updated 07/31/20 @ 21:32 by Jose Luis Cosby MD) Gastroenteritis due to 2019 novel coronavirus (Acute) Pneumonia due to 2019 novel coronavirus (Acute) Acute viral syndrome (Acute) COVID-19 (Acute) Chronic kidney disease (CKD) stage G3b/A1, moderately decreased glomerular filtration rate (GFR) between 30-44 mL/min/1.73 square meter and albuminuria creatinine ratio less than 30 mg/g (Chronic) Kyphosis (Chronic) Tremor (Chronic) History of surgery (Chronic ~10/05/19) Calculus of kidney and ureter (Chronic) Urinary tract infection (Chronic) Pneumonia (Chronic) Cystic thyroid nodule (Chronic) Influenza A (Chronic) Hypokalemia, excessive renal losses (Chronic) Tinea corporis (Chronic) Symptoms of urinary tract infection (Chronic) Lumbar spine strain (Chronic) Cervical strain (Chronic) Scalp contusion (Chronic) Dehydration (Chronic) Hypoxia (Chronic) Fall as cause of accidental injury at home as place of occurrence (Chronic) Humeral fracture (Chronic) Leg wound, left (Chronic) Joint pain (Chronic) Adnexal pain (Chronic) Endometrial hyperplasia (Chronic) Cervical polyp (Chronic) Intention tremor (Chronic) Shoulder joint pain (Chronic) Parathyroid adenoma (Chronic) Primary hyperparathyroidism (Chronic) Chronic kidney disease, stage 3 (Chronic) Hematuria (Chronic) Hydroureter (Chronic) History of ureter stent (Chronic 10/09/13) Postmenopausal bleeding (Chronic) Sinusitis (Chronic) Urinary incontinence, urge (Chronic 03/26/13) Ureteral calculus (Chronic 10/08/13) Pain in joint, shoulder region (Chronic) Major depressive disorder in remission (Chronic) Hypertension, essential (Chronic) Hyperlipidemia (Chronic) Cervical disc disease with myelopathy (Chronic 04/30/14) Back pain (Chronic) Medical History (Updated 07/31/20 @ 21:32 by Jose Luis Cosby MD) Abnormal urine finding (Resolved) elevated urine constitute, calcium Abnormal urine finding (Resolved) Elevated urine constitute, uric acid Adnexal pain (Chronic) Back pain (Chronic) Calculus of kidney and ureter (Chronic) Cellulitis (Resolved) Right lower extremity cellulitis Cervical disc disease with myelopathy (Chronic 04/30/14) use tramadol prn Cervical polyp (Chronic) Cervical strain (Chronic) Chronic kidney disease, stage 3 (Chronic) Cystic thyroid nodule (Chronic) Dehydration (Chronic) Endometrial hyperplasia (Chronic) Fall as cause of accidental injury at home as place of occurrence (Chronic) Flank pain (Resolved) Hematuria (Chronic) Humeral fracture (Chronic) Hydroureter (Chronic) Ureteric Obstruction Hyperlipidemia (Chronic) Hypertension, essential (Chronic) Hypokalemia (Resolved) Hypokalemia (Resolved) Hypokalemia, excessive renal losses (Chronic) Hypoxia (Chronic) Influenza A (Chronic) Intention tremor (Chronic) Joint pain (Chronic) Kidney calculus (Resolved 04/22/14) Left side Kyphosis (Chronic) Leg wound, left (Chronic) Lumbar spine strain (Chronic) Major depressive disorder in remission (Chronic) Nausea (Resolved) Pain in joint, shoulder region (Chronic) 2011 Fractured upper humerus-conservatively treated Parathyroid adenoma (Chronic) Pneumonia (Chronic) Postmenopausal bleeding (Chronic) Primary hyperparathyroidism (Chronic) Renal calculi (Resolved 10/08/13) Scalp contusion (Chronic) Shoulder joint pain (Chronic) Sinusitis (Chronic) Symptoms of urinary tract infection (Chronic) Tinea corporis (Chronic) Tremor (Chronic) Ureteral calculus (Chronic 10/08/13) Urinary incontinence, urge (Chronic 03/26/13) Urinary tract infection (Chronic) leukocytes, hematuria noted on urine dipstick today Viral syndrome (Resolved) Surgical History (Updated 07/23/20 @ 03:10 by Micah Dean MD) H/O cystoscopy (Resolved 10/09/13) H/O lithotripsy (Resolved 05/07/14) Cystoscopy, placement of 6 x 26 Polaris Loop stent and LT ESWL H/O sinus surgery (Resolved ~1999) H/O tubal ligation (Resolved ~1990) H/O: hemorrhoidectomy (Resolved ~1988) History of intravascular stent placement (Resolved 08/07/13) 6 x 26 Polaris Loop Stent History of partial thyroidectomy (Acute) History of surgery (Chronic ~10/05/19) Fragmenting of kidney stone History of ureter stent (Chronic 10/09/13) Right ureteroscopy with laser of stone and placement of stent. Family History Aunt Malignant neoplasm of brain Grandmother-maternal Malignant neoplasm of brain Mother Diabetes mellitus Myocardial Infarction Malignant neoplasm of stomach Grandfather-maternal Myocardial Infarction Social History (Updated 06/23/20 @ 14:08 by Maria Fernanda Hill) marital status: occupational status: unemployed smoking status: Never smoker alcohol intake frequency: a few times a week MEDS/ALLERGIES Home Medications and Allergies Home Medications Medication Instructions Recorded Confirmed Type diphenhydramine HCl 25 mg PO Q6HP PRN 04/26/17 08/01/20 History omeprazole 20 mg capsule,delayed 20 mg PO QDAY #90 cap 08/09/17 08/01/20 Rx release pravastatin 40 mg tablet 40 mg PO QHS #90 tab 10/24/17 08/01/20 Rx sertraline 100 mg tablet 200 mg PO QHS #180 tab 12/30/17 08/01/20 Rx spironolactone 25 mg tablet 25 mg PO BID #180 tab 03/23/18 08/01/20 Rx oxybutynin chloride 10 mg 10 mg PO QHS #90 tab 04/24/18 08/01/20 Rx tablet,extended release 24 hr acetaminophen 500 mg tablet 500 mg PO BID PRN tab 06/23/20 08/01/20 History calcium carbonate 600 mg (1,500 1 tab PO QDAY 06/23/20 08/01/20 History mg)-vitamin D3 200 unit tablet oxycodone-acetaminophen 5 mg-325 1 tab PO BID PRN tab 06/23/20 08/01/20 History mg tablet potassium chloride 10 mEq 15 meq PO QDAY tab 06/23/20 08/01/20 History tablet,extended release hydrochlorothiazide 25 mg tablet 25 mg PO QDAY tab 06/25/20 08/01/20 History levothyroxine 100 mcg tablet 88 mcg PO QDAY tab 06/25/20 08/01/20 History losartan 100 mg tablet 100 mg PO QDAY tab 06/25/20 08/01/20 History nystatin 100,000 unit/gram topical 1 applic TOPICAL BID PRN 06/25/20 08/01/20 History powder primidone 50 mg tablet 50 mg PO QDAY tab 06/25/20 08/01/20 History tramadol 50 mg tablet 50 mg PO TID tab 06/25/20 08/01/20 History ondansetron 4 mg PO Q6H PRN #10 tab 07/23/20 08/01/20 Rx Allergies Allergy/AdvReac Type Severity Reaction Status Date / Time iodine Allergy Intermediate Skin Verified 07/23/20 02:42 Reaction Amoxicillin AdvReac Mild Diarrhea Verified 07/23/20 02:42 codeine AdvReac Mild Migraine Verified 07/23/20 02:42 EXAM Constitutional Vitals: Temp Pulse Resp BP Pulse Ox 98.8 F 94 H 18 95/64 95 08/04/20 16:18 08/04/20 14:01 08/04/20 16:18 08/04/20 16:18 08/04/20 16:18 General appearance: average body habitus, cooperative and no acute distress Head Head exam: Present atraumatic, normal inspection and normocephalic Eye Eye exam: Present EOMI; Absent periorbital swelling and scleral icterus Respiratory Respiratory exam: Absent accessory muscle use, respiratory distress, stridor and wheezes Cardiovascular Cardiovascular exam: Present RRR GI/Abdominal GI/Abdominal exam: Present soft; Absent distended and firm Additional comments: no CVA tenderness Neurological Exam Neurological exam: Present alert and oriented X3; Absent altered Psychiatric Psychiatric exam: Present normal affect and normal mood; Absent anxious DATA Data Completed and Pending Labs: Labs from last 24 hours 08/04/20 08/04/20 05:57 05:57 Sodium 138 Potassium 3.9 Chloride 95 L Carbon Dioxide 26 Anion Gap 17.0 H BUN 29 H Creatinine 1.2 H GFR Calculation 45 Glucose 113 H Uric Acid 5.1 Calcium 7.9 L Phosphorus 2.4 L Magnesium 1.9 Ferritin 593.4 H Total Bilirubin 1.0 Direct Bilirubin < 0.2 GGT 27 AST 35 H ALT 20 Alkaline Phosphatase 108 Lactate Dehydrogenase 369 H C-Reactive Protein 3.60 H Total Protein 7.0 Albumin 3.1 L Globulin 3.9 H Albumin/Globulin Ratio 0.8 L Triglycerides 111 A/P Assessment and plan (1) Calculus of kidney and ureter: Status: Chronic Narrative A/P Narrative: patient recovering from covid now with 8 mm UPJ obstructing left stone with further left renal stone burden -plan for urgent stent palcement with possible ureteroscopy and laser lithotripsy as needed to place stent -given her recent covid, will try to use minimal anesthesia and plce stent under sedation -she understands the stent is temporary and needs to be removed or exchanged in 3-6 months -she will need to establish with a urologist for definitive stone management as I am locums and will not be able to complete her care (will refer her to Dr Choudhury in [place] per her preference) Time Spent With Patient Time: Total time spent is greater than 50% in coordination of care (as documented) at patient's floor/unit and/or counseling patient:
[2020-08-04] MEDS ORDERED: IOVERSOL 20 ML VIAL IV ONE (18:30)
--- NOTE | 2020-08-04 19:10 | Brief Operative Note ---
Brief Operative Note Date of procedure: 08/04/20 Pre-op diagnosis: left obstructing UPJ stone Post-op diagnosis: same (multiple radiolucent stones seen on retrograde pyelogram with significant hydronephrosis ) Procedure: left stent placement with retrograde pyelogram Grafts/Implants: Yes (6 m[place] 24 cm stent ) Anesthesia: MAC Findings: markedly hydronephrosis and retained contrast in left renal pelvis from CT scan earlier today, multiple radio lucent (or obscured by the retained contrast) renal stones outlined on retrograde pyelogram, few radioopaque stones in ureter. Complications: none Surgeon: Jaime Fisher Specimens Removed/Pathology: none sent Condition: stable Disposition: floor
[2020-08-04] MEDS ORDERED: MELATONIN 3 MG TABLET PO PRN (21:00)
[2020-08-04] MEDS: OXYBUTYNIN CHLORIDE 5 MG TAB.XL.24H PO SCH (21:25)
[2020-08-04] MEDS: ATORVASTATIN 10 MG TABLET PO SCH (21:25)
[2020-08-04] MEDS: SERTRALINE 100 MG TABLET PO SCH (21:25)
[2020-08-04] MEDS: SENNOSIDES/DOCUSATE SODIUM 1 TAB TABLET PO SCH (21:26)
--- NOTE | 2020-08-04 21:53 | Operative Note ---
Operative Note Operative Note: Date of procedure: 08/04/20 Pre-op diagnosis: left obstructing UPJ stone Post-op diagnosis: same (multiple radiolucent stones seen on retrograde pyelogram with significant hydronephrosis ) Procedure: left stent placement with retrograde pyelogram Grafts/Implants: Yes (6 ind[place]ian 24 cm stent ) Anesthesia: MAC Findings: markedly hydronephrosis and retained contrast in left renal pelvis from CT scan earlier today, multiple radio lucent (or obscured by the retained contrast) renal stones outlined on retrograde pyelogram, few radioopaque stones in ureter. Complications: none Surgeon: Jaime Fisher Specimens Removed/Pathology: none sent Condition: stable Disposition: floor Informed consent was obtained and preoperative antibiotics were given. Patient was taken to the operative suite and placed on the table in supine position. Adequate anesthesia was initiated. Patient was then prepped and draped in the usual sterile fashion after being placed in the dorsolithotomy position. We began the procedure with a 21 Ukrainian cystoscope and 30 degree lens which was guided into the urethra and bladder. The left ureteral orifice was identified and cannulated with a cone-tipped catheter. Pelvic films were obtained and there is seem to be the shadow of retained contrast in the left hydronephrotic renal pelvis. Some radiopaque stones were seen in the area of the ureteropelvic junction. No obvious stones were seen in the renal pelvis to correlate with the calculi seen on CT scan. Radiopaque contrast material was installed under fluoroscopic guidance to delineate the anatomy. There was seen to be obstructing stones at the ureteropelvic junction, then once the renal pelvis filled with additional contrast multiple radiolucent filling defects were seen corresponding to the stone seen on CT scan. Stiff body Glidewire was passed up into the renal pelvis without issue. Then a 6 Ukrainian 24 cm double-J ureteral stent was placed in the usual [place] fashion and seemed to coil adequately in the renal pelvis under fluoroscopy and in the bladder under direct vision. Some mild resistance was encountered with passing the stent alongside the ureteropelvic junction stone. There is excellent drainage of urine down the stent. No gross signs of infected urine. The bladder was drained. Patient tolerated procedure well went to recovery room in excellent condition.
[2020-08-05] MEDS: 0.9 % SODIUM CHLORIDE 10 ML SYRINGE IV SCH ×3 (06:20→21:12)
[2020-08-05] MEDS: LEVOTHYROXINE 88 MCG TABLET PO SCH (06:58)
[2020-08-05] MEDS: OMEPRAZOLE 20 MG CAPSULE PO SCH (06:58)
[2020-08-05 07:20] LABS: ALT/SGPT 16 U/L (<40); AST/SGOT 21 U/L (<32); Albumin 2.5 gm/dL (3.2-5.2); Albumin/Globulin Ratio 0.7 (1.0-2.3); Alkaline Phosphatase 78 U/L (39-117); Bilirubin,Direct < 0.2 mg/dL (<0.3); Bilirubin,Total 0.5 mg/dL (0.1-1.0); Blood Urea Nitrogen 24 mg/dL (8-23); Calcium 7.2 mg/dL (8.6-10.4); Carbon Dioxide 30 mmol/L (22-30); Chloride 97 mmol/L (96-108); Globulin 3.4 gm/dL (2.2-3.7); Glomerular Filtration Rate 50; Glucose 95 mg/dL (70-105); Lactate Dehydrogenase 193 U/L (135-225); Phosphorous 4.5 mg/dL (2.5-4.5); Triglycerides 72 mg/dL (<150); Uric Acid 4.9 mg/dL (2.5-8.0)
[2020-08-05 07:31] LABS: Ferritin 505.8 ng/mL (30.0-400.0)
--- NOTE | 2020-08-05 07:49 | Internal Med Progress Note ---
SUBJECTIVE Subjective Patient information: Note initiated : 08/05/20 at 7:43 am Service Date, if different from initiated Date: [] Patient: Selena Jaquez a 74 y/o F admitted on 07/31/20 for weakness, diarrhea, fatigue. Chief Complaint: [] Interval history: Interval history: Ms. Jaquez is a 74 year old F with history of hypertension/anxiety/hyperlipidemia and GERD who lives in a trailer home along with her son and has been feeling sick for the last couple of weeks since she was diagnosed with COVID-19 on July 17. She has had 2 ER visit on July 21 on with symptoms of diarrhea, malaise weakness and gradually getting lethargic unable to function. She was discharged home on ivermectin/zinc and advised conservative management as patient did not show any symptoms of Covid pneumonia. Over the last 3 days she has been getting increasingly dyspneic. Diarrhea has continued along with generalized myalgia/malaise. With increasing concerns she asked her son to bring her to the ER. Initial work-up was consistent with severe hypoxia requiring 4 L oxygen to maintain sats above 90. Chest x-ray bilateral infiltrates. Patient was started on steroids. Hospitalist service was consulted. At the time of my evaluation patient is anxi ous and lethargic but able to answer most the question endorses history as above. She endorses to loss of appetite but denies headache, photophobia or neck stiffness. She endorses to sick contacts including family members 08/01-patient significantly hypoxic with PaO2/FiO2 ratio less than 150. PO2 58, 4L oxygen. Currently fires oxygen multifocal chest infiltrates consistent with Covid pneumonia. White count 3.3 potassium 3.1 on replacement. Phosphorus 1.8 ferritin 572. On twice daily Lovenox. Procalcitonin 0.12. Transition to noninvasive ventilation if continue scheduled. Serial ABGs and chest imaging. /-demonstrating gradual clinical improvement however requiring 5 L oxygen to maintain saturations. Multifocal pneumonia. On remdesivir/dexamethasone. Low phosphorus 1.9 on replacement white count 6000, interval chest imaging worsening bilateral chest infiltrates. Continue COVID-19 precautions/thrombosis prophylaxis/supportive management. Empiric antibiotic for superimposed bacterial pneumonia coverage, no additional concerns expressed by nursing staff. 1/3 Feeling better overall. Has mildly productive cough. Shortness of breath improving. Oxygen requirements slowly improving as she is down to 2-3L. 08/04 Patient on 2 L nasal cannula. Chest x-ray seems to be clearing up some several days ago. She developed a diffuse crampy abdominal pain earlier this morning along with sharp back pain. She had a soft bowel movement this morning. He does have a history of fibromyalgia and takes tramadol for this. Some nausea but no vomiting. 08/05 Feeling much better after having ureteral stent yesterday. Has minimal cough. Denies shortness of breath at rest. Is on 2 L. Review of Systems: denies headache/fever/chills/nausea/vomiting/chest or abdominal pain/diarrhea. Otherwise see above. Constitutional Vitals: Vital Signs Temp Pulse Resp BP Pulse Ox 97.1 F 60 20 114/60 90 08/05/20 07:39 08/05/20 07:39 08/05/20 07:39 08/05/20 07:39 08/05/20 07:39 Period Temp Pulse Resp BP Sys/Garay Pulse Ox Last 24 Hr 97.1 F-98.8 F 59-99 16-28 89-128/58-79 90-99 Intake and Output 08/04/20 08/05/20 08/05/20 21:59 05:59 13:59 Intake Total 500 200 Output Total 425 Balance 500 200 -425 Weight 111.901 kg Intake & Output: Intake & Output 08/04/20 08/05/20 08/05/20 21:59 05:59 13:59 Intake Total 500 200 Output Total 425 Balance 500 200 -425 Weight 111.901 kg Intake: IV 500 Sodium Chloride 0.9% 500 ml @ 500 75 mls/hr IV .Q6H40M [facility] Rx#: [id number] Oral 200 Output: Void Amount 425 Other: Urine Appearance Clear Clear Urine Color Bright Yellow Bright Yellow Urine Odor Strong Normal # Voids 1 1 Exam: Exam: General: Alert, Awake,no acute distress, obese Eyes/N/T: EOMI, Head/Neck: neck supple, CV: RRR, No murmurs, Pulm: minimal rhonchi L, diminished b/l Abd: soft, generalized tenderness, decreased +BS Ext: no clubbing/cyanosis, mild b/l LE edema Neuro: Alert, no focal deficits, moves all extremities, Skin: warm/dry OBJ DATA Labs CBC & Chem 7: 08/02/20 04:37 08/05/20 05:53 Labs: Abnormal Lab Results 08/05/20 08/05/20 08/05/20 05:53 05:53 05:53 Chloride Anion Gap BUN 24 H Creatinine Glucose Calcium 7.2 L Phosphorus Ferritin 505.8 H AST Lactate Dehydrogenase C-Reactive Protein 17.70 H Albumin 2.5 L Globulin Albumin/Globulin Ratio 0.7 L 08/04/20 08/04/20 08/03/20 05:57 05:57 05:19 Chloride 95 L Anion Gap 17.0 H BUN 29 H Creatinine 1.2 H Glucose 113 H Calcium 7.9 L 7.6 L Phosphorus 2.4 L 2.2 L Ferritin 593.4 H AST 35 H Lactate Dehydrogenase 369 H 239 H C-Reactive Protein 3.60 H Albumin 3.1 L 2.5 L Globulin 3.9 H Albumin/Globulin Ratio 0.8 L 0.7 L Meds: Medications Acetaminophen (Tylenol) 650 mg PO Q4-6HP PRN; Protocol PRN Reason: Per Pain Protocol/Fever > 101 Albuterol Sulfate (Ventolin) 1 - 2 puff INH Q4HP PRN PRN Reason: Shortness Of Breath Atorvastatin Calcium (Lipitor) 10 mg PO HS [facility] Last Admin: 08/04/20 21:25 Dose: 10 mg Documented by: Bisacodyl (Dulcolax) 10 mg SC Q2-3DAYS PRN PRN Reason: Constipation Dexamethasone (Decadron) 6 mg PO DAILY [facility] Diphenhydramine HCl (Benadryl) 25 mg PO Q6HP PRN PRN Reason: Allergy Symptoms Docusate Sodium (Colace) 100 mg PO BID [facility] Last Admin: 08/04/20 21:26 Dose: Not Given Documented by: Enoxaparin Sodium (Lovenox) 40 mg SQ BID [facility] Last Admin: 08/04/20 21:26 Dose: 40 mg Documented by: Ceftriaxone Sodium 2 gm/ (Dextrose) 50 mls @ 100 mls/hr IV DAILY [facility]; Protocol Acetaminophen (Ofirmev) 650 mg in 65 mls @ 130 mls/hr IV Q6HP PRN; Protocol PRN Reason: Per Pain Protocol/Fever > 101 Magnesium Sulfate (Magnesium Sulfate) 2 gm in 50 mls @ 50 mls/hr IV UD PRN PRN Reason: MG = or < 1.7 Potassium Chloride 40 meq/ (Dextrose) 520 mls @ 130 mls/hr IV UD PRN PRN Reason: K+ = or < 3.5 Iron Carb/Multivit/Triage Licensed Practical Nurse/Folic Acid (Multivitamin W/Minerals) 1 tab PO DAILY [facility] Levothyroxine Sodium (Synthroid) 88 mcg PO QAMAC [facility] Last Admin: 08/05/20 06:58 Dose: 88 mcg Documented by: Melatonin (Melatonin 3mg Tablet) 3 mg PO HSP PRN PRN Reason: Insomnia Nystatin (Nystatin) 1 dose TOPICAL BIDP PRN PRN Reason: FUNGAL INFECTION Omeprazole (Prilosec) 20 mg PO ACB [facility] Last Admin: 08/05/20 06:58 Dose: 20 mg Documented by: Ondansetron HCl (Zofran Odt) 4 mg SL Q4-6HP PRN; Protocol PRN Reason: Nausea And Vomiting Ondansetron HCl (Zofran) 4 mg IV Q4-6HP PRN; Protocol PRN Reason: Nausea And Vomiting Oxybutynin Chloride (Ditropan Xl) 10 mg PO [facility] Last Admin: 08/04/20 21:25 Dose: 10 mg Documented by: Oxycodone/Acetaminophen (Percocet 5-325 Mg) 1 tab PO Q4-6HP PRN; Protocol PRN Reason: Pain, Moderate Polyethylene Glycol (Miralax) 17 gm PO DAILYP PRN PRN Reason: Constipation [facility]assium [facility] ([facility] Potassium Chloride (Klor-Con) 40 meq PO DAILYP PRN PRN Reason: K+ < 3.5 Potassium/Phosphorus/Sodium (Neutra Phos) 2 packet PO DAILYP PRN PRN Reason: PHOS <2.5 Primidone (Mysoline) 50 mg PO QDAY [facility] Senna/Docusate Sodium (Senna Plus Tablet) 1 tab PO [facility] Last Admin: 08/04/20 21:26 Dose: Not Given Documented by: Sertraline HCl (Zoloft) 200 mg PO QHS [facility] Last Admin: 08/04/20 21:25 Dose: 200 mg Documented by: Sodium Chloride (Saline Flush) 10 ml IV Q8 [facility] Last Admin: 08/05/20 06:20 Dose: 10 ml Documented by: Tramadol HCl (Ultram) 50 mg PO TID [facility]; Protocol Last Admin: 08/04/20 21:25 Dose: 50 mg Documented by: Zinc Sulfate (Zinc) 50 mg PO DAILY [facility] A/P Narrative A/P Narrative: A: *COVID-19 PNA: -Interval worsening on left noted on chest imaging, f/u shows improvement - *Acute hypoxic respiratory failure: secondary to above -down to 2L NC. self proning as tolerated *Left hydronephrosis with UPJ stone: s/p stent placement (08/04) *CKD II-III: *HTN: home dose spironolactone/losartan/thiazide *Low potassium and phosphorus: improved *Hypothyroidism: thyroxine *GERD: continue PPI *Chronic pain/Fibromyalgia: on oxycodone/tramadol *Anxiety: continue sertraline *Obese: *Abdominal/back pain: Plan: -Low flow oxygen/remdesivir(finished)/dexamethasone -empiric antibiotic for superimposed bacterial pneumonia coverage d/c tomorrow -Frequent self proning, IS/Acapella -stent placed by urology -Directed therapies/nutrition support/early mobilization as tolerated, pt/ot -Discharge planning per case management -ppx: bid lovenox Full code Time Spent With Patient Time: Total time spent is greater than 50% in coordination of care (as documented) at patient's floor/unit and/or counseling patient: QUALITY VTE Deep Vein Thrombosis/Pulmonary Embolism Present on Admission: No
[2020-08-05] MEDS: cefTRIAXone 2 GM in DEXTROSE 5% IN WATER 50 ML IV SCH (10:22)
[2020-08-05] MEDS: DEXAMETHASONE 4 MG TABLET PO SCH (10:23)
[2020-08-05] MEDS: ZINC SULFATE 50 MG CAPSULE PO SCH (10:23)
[2020-08-05] MEDS: MULTIVIT,THER IRON,CA,FA & MIN 1 TABLET PO SCH (10:24)
[2020-08-05] MEDS: traMADol 50 MG TABLET PO SCH ×3 (10:25→21:10)
[2020-08-05] MEDS: POTASSIUM CHLORIDE 10 MEQ TABLET PO SCH (10:26)
[2020-08-05] MEDS: ENOXAPARIN 40 MG/0.4 ML SYRINGE SQ SCH ×2 (10:27→21:13)
[2020-08-05] MEDS: DOCUSATE SODIUM 100 MG CAPSULE PO SCH ×2 (10:27→21:11)
[2020-08-05] MEDS: PRIMIDONE 50 MG TABLET PO SCH (10:28)
--- NOTE | 2020-08-05 10:45 | Discharge Summary ---
Discharge Provider Provider Patient information: Note initiated : 08/05/20 at 10:44 am Service Date, if different from initiated Date: [] Patient: Selena Jaquez 74 y/o F admitted on 07/31/20 for weakness, diarrhea, fatigue. Chief Complaint: [] Date of admission: 07/31/20 21:44 Discharge date: 08/06/20 Primary care physician: Sd Ugalde Consults: 07/31/20 Consult to Physician [CONS] Stat Comment: Consulting Provider: Eh Li Reason For Exam: Physician to Consult 08/04/20 14:06 Consult to Physician [CONS] Routine Comment: Consulting Provider: Jaime Fisher Reason For Exam: Physician to Consult Discharge Meds Discharge Medications Home Medications diphenhydramine HCl 25 mg PO Q6HP PRN 04/26/17 [History Confirmed 08/01/20 Last Taken 1 Week Ago ~07/25/20] omeprazole 20 mg capsule,delayed release 20 mg PO QDAY #90 cap 08/09/17 [Rx Confirmed 08/01/20 Last Taken 1 Day Ago ~07/31/20] pravastatin 40 mg tablet 40 mg PO QHS #90 tab 10/24/17 [Rx Confirmed 08/01/20 Last Taken Unknown] sertraline 100 mg tablet 200 mg PO QHS #180 tab 12/30/17 [Rx Confirmed 08/01/20 Last Taken 1 Day Ago ~07/31/20] spironolactone 25 mg tablet 25 mg PO BID #180 tab 03/23/18 [Rx Confirmed 08/01/20 Last Taken Unknown] oxybutynin chloride 10 mg tablet,extended release 24 hr 10 mg PO QHS #90 tab 04/24/18 [Rx Confirmed 08/01/20 Last Taken 2 Days Ago ~07/30/20] acetaminophen 500 mg tablet 500 mg PO BID PRN tab 06/23/20 [History Confirmed 08/01/20 Last Taken Unknown] calcium carbonate 600 mg (1,500 mg)-vitamin D3 200 unit tablet 1 tab PO QDAY 06/23/20 [History Confirmed 08/01/20 Last Taken 1 Day Ago ~07/31/20] oxycodone-acetaminophen 5 mg-325 mg tablet 1 tab PO BID PRN tab 06/23/20 [History Confirmed 08/01/20 Last Taken Unknown] potassium chloride 10 mEq tablet,extended release 15 meq PO QDAY tab 06/23/20 [History Confirmed 08/01/20 Last Taken Unknown] hydrochlorothiazide 25 mg tablet 25 mg PO QDAY tab 06/25/20 [History Confirmed 08/01/20 Last Taken 1 Day Ago ~07/31/20] levothyroxine 100 mcg tablet 88 mcg PO QDAY tab 06/25/20 [History Confirmed 08/01/20 Last Taken 1 Day Ago ~07/31/20] losartan 100 mg tablet 100 mg PO QDAY tab 06/25/20 [History Confirmed 08/01/20 Last Taken 1 Day Ago ~07/31/20] nystatin 100,000 unit/gram topical powder 1 applic TOPICAL BID PRN 06/25/20 [History Confirmed 08/01/20 Last Taken Unknown] primidone 50 mg tablet 50 mg PO QDAY tab 06/25/20 [History Confirmed 08/01/20 Last Taken 2 Days Ago ~07/30/20] tramadol 50 mg tablet 50 mg PO TID tab 06/25/20 [History Confirmed 08/01/20 Last Taken 1 Day Ago ~07/31/20] ondansetron 4 mg PO Q6H PRN #10 tab 07/23/20 [Rx Confirmed 08/01/20 Last Taken 1 Day Ago ~07/31/20] COURSE Hospital Course Hospital course: Ms. Jaquez is a 74 year old F with history of hypertension/anxiety/hyperlipidemia and GERD who lives in a trailer home along with her son and has been feeling sick for the last couple of weeks since she was diagnosed with COVID-19 on July 17. She has had 2 ER visit on July 21 on with symptoms of diarrhea, malaise weakness and gradually getting lethargic unable to function. She was discharged home on ivermectin/zinc and advised conservative management as patient did not show any symptoms of Covid pneumonia. Over the last 3 days she has been getting increasingly dyspneic. Diarrhea has continued along with generalized myalgia/malaise. With increasing concerns she asked her son to bring her to the ER. Initial work-up was consistent with severe hypoxia requiring 4 L oxygen to maintain sats above 90. Chest x-ray bilateral infiltrates. Patient was started on steroids. Hospitalist service was consulted. At the time of my evaluation patient is anxious and lethargic but able to answer most the question endorses history as above. She endorses to loss of appetite but denies headache, photophobia or neck stiffness. She endorses to sick contacts including family members 08/01-patient significantly hypoxic with PaO2/FiO2 ratio less than 150. PO2 58, 4L oxygen. Currently fires oxygen multifocal chest infiltrates consistent with Covid pneumonia. White count 3.3 potassium 3.1 on replacement. Phosphorus 1.8 ferritin 572. On twice daily Lovenox. Procalcitonin 0.12. Transition to noninvasive ventilation if continue scheduled. Serial ABGs and chest imaging. 08/02-demonstrating gradual clinical improvement however requiring 5 L oxygen to maintain saturations. Multifocal pneumonia. On remdesivir/dexamethasone. Low phosphorus 1.9 on replacement white count 6000, interval chest imaging worsening bilateral chest infiltrates. Continue COVID-19 precautions/thrombosis prophylaxis/supportive management. Empiric antibiotic for superimposed bacterial pneumonia coverage, no additional concerns expressed by nursing staff. 08/03 Feeling better overall. Has mildly productive cough. Shortness of breath improving. Oxygen requirements slowly improving as she is down to 2-3L. 08/04 Patient on 2 L nasal cannula. Chest x-ray seems to be clearing up some several days ago. She developed a diffuse crampy abdominal pain earlier this morning along with sharp back pain. She had a soft bowel movement this morning. He does have a history of fibromyalgia and takes tramadol for this. Some nausea but no vomiting. 08/05 Feeling much better after having ureteral stent yesterday. Has minimal cough. Denies shortness of breath at rest. Is on 2 L. 08/06 Doing well. Saturation mid 90s on half a liter of oxygen. May not need oxygen anymore or at home, Will evaluate. Stable for discharge A: *COVID-19 PNA: *Acute hypoxic respiratory failure: secondary to above *Left hydronephrosis with UPJ stone: s/p stent placement (08/04) *CKD II-III: *HTN: home dose spironolactone/losartan/thiazide *Low potassium and phosphorus: improved *Hypothyroidism: thyroxine *GERD: continue PPI *Chronic pain/Fibromyalgia: on oxycodone/tramadol *Anxiety: continue sertraline *Obese: Discharge diagnosis: Covid pneumonia acute hypoxic respite failure obstructing stone with hydron Secondary discharge diagnosis: Chronic kidney disease hypertension electrolyte abnormalities hypothyroidism GERD chronic pain fibromyalgia anxiety obesity Time Spent with Patient Time attestation: Total time spent providing and/or coordinating discharge services: Time spent: Greater than 30 minutes EXAM Constitutional Vitals: Temp Pulse Resp BP Pulse Ox 97.1 F 60 20 114/60 90 08/05/20 07:39 08/05/20 07:39 08/05/20 07:39 08/05/20 07:39 08/05/20 07:39 Discharge Data Data Completed and Pending Labs on day of discharge: Labs from last 24 hours 08/05/20 08/05/20 08/05/20 05:53 05:53 05:53 D-Dimer 0.32 Sodium Potassium Chloride Carbon Dioxide Anion Gap BUN Creatinine GFR Calculation Glucose Uric Acid Calcium Phosphorus Magnesium Ferritin 505.8 H Total Bilirubin Direct Bilirubin GGT AST ALT Alkaline Phosphatase Lactate Dehydrogenase C-Reactive Protein 17.70 H Total Protein Albumin Globulin Albumin/Globulin Ratio Triglycerides 08/05/20 05:53 D-Dimer Sodium 137 Potassium 3.7 Chloride 97 Carbon Dioxide 30 Anion Gap 10.0 BUN 24 H Creatinine 1.1 GFR Calculation 50 Glucose 95 Uric Acid 4.9 Calcium 7.2 L Phosphorus 4.5 Magnesium 2.1 Ferritin Total Bilirubin 0.5 Direct Bilirubin < 0.2 GGT 22 AST 21 ALT 16 Alkaline Phosphatase 78 Lactate Dehydrogenase 193 C-Reactive Protein Total Protein 5.9 Albumin 2.5 L Globulin 3.4 Albumin/Globulin Ratio 0.7 L Triglycerides 72 Discharge Plan Patient/Caregiver Discharge Instructions Activity: increase activity as tolerated Diet: Regular Diet Prescriptions: Continued omeprazole 20 mg capsule,delayed release(DR/EC) 20 mg PO QDAY Qty: 90 RF: 3 pravastatin 40 mg tablet 40 mg PO QHS Qty: 90 RF: 3 sertraline 100 mg tablet 200 mg PO QHS Qty: 180 RF: 3 spironolactone 25 mg tablet 25 mg PO BID Qty: 180 RF: 3 oxybutynin chloride 10 mg tablet extended release 24hr 10 mg PO QHS Qty: 90 RF: 3 acetaminophen 500 mg tablet 500 mg PO BID PRN (Reason: Headache) RF: 0 calcium carbonate-vitamin D3 [Calcium 600 + D(3)] 600 mg(1,500mg) -200 unit tablet 1 tab PO QDAY RF: 0 potassium chloride [Klor-Con 10] 10 mEq tablet extended release 15 meq PO QDAY RF: 0 oxycodone-acetaminophen 5-325 mg tablet 1 tab PO BID PRN (Reason: Pain, Moderate) RF: 0 tramadol 50 mg tablet 50 mg PO TID RF: 0 hydrochlorothiazide 25 mg tablet 25 mg PO QDAY RF: 0 losartan 100 mg tablet 100 mg PO QDAY RF: 0 primidone 50 mg tablet 50 mg PO QDAY RF: 0 nystatin 100,000 unit/gram powder 1 applic TOPICAL BID PRN (Reason: Ifabx Other Fungal Infection) RF: 0 levothyroxine 100 mcg tablet 88 mcg PO QDAY RF: 0 diphenhydramine HCl 25 MG capsule 25 mg PO Q6HP PRN (Reason: Allergy Symptoms) RF: 0 ondansetron 4 mg tablet,disintegrating 4 mg PO Q6H PRN (Reason: nausea and vomiting) Qty: 10 RF: 0 Follow Up Plan Follow up with: Sd Ugalde MD [Primary Care Provider] - Jaime Fisher MD [Physician] - Patient Disposition: Home, Self-Care Prognosis: Fair Overall status at discharge: patient is progressing back to baseline Discharge Orders: Discharge Order (Routine); Ordered 08/06/20 Ordered By: [facility]The [facility] Thrombosis/Pulmonary Embolism Present on Admission: No
--- NOTE | 2020-08-05 16:25 | XRay Report ---
CLINICAL INFORMATION: LEFT STENT PLACEMENT COMPARISON: None. FINDINGS: Initial retrograde ureterogram shows moderate left hydronephrosis with multiple small filling defects in the renal pelvis and calyces compatible with small stones. A left double pigtail ureteral stent was successfully placed - the proximal end is in the renal pelvis. IMPRESSION: Successful placement of left double pigtail ureteral stent Interpreted and Authenticated by: Brandon Díaz 08/05/20
[2020-08-05] MEDS: ATORVASTATIN 10 MG TABLET PO SCH (21:10)
[2020-08-05] MEDS: SERTRALINE 100 MG TABLET PO SCH (21:10)
[2020-08-05] MEDS: OXYBUTYNIN CHLORIDE 5 MG TAB.XL.24H PO SCH (21:11)
[2020-08-05] MEDS: SENNOSIDES/DOCUSATE SODIUM 1 TAB TABLET PO SCH (21:15)
[2020-08-06] MEDS: 0.9 % SODIUM CHLORIDE 10 ML SYRINGE IV SCH (05:54)
[2020-08-06] MEDS: DEXAMETHASONE 4 MG TABLET PO SCH (08:14)
[2020-08-06] MEDS: LEVOTHYROXINE 88 MCG TABLET PO SCH (08:14)
[2020-08-06] MEDS: OMEPRAZOLE 20 MG CAPSULE PO SCH (08:14)
[2020-08-06] MEDS: DOCUSATE SODIUM 100 MG CAPSULE PO SCH ×2 (08:14→08:21)
[2020-08-06] MEDS: traMADol 50 MG TABLET PO SCH (08:15)
[2020-08-06] MEDS: MULTIVIT,THER IRON,CA,FA & MIN 1 TABLET PO SCH (08:15)
[2020-08-06] MEDS: ZINC SULFATE 50 MG CAPSULE PO SCH (08:15)
[2020-08-06] MEDS: POTASSIUM CHLORIDE 10 MEQ TABLET PO SCH (08:15)
[2020-08-06] MEDS: cefTRIAXone 2 GM in DEXTROSE 5% IN WATER 50 ML IV SCH (08:16)
[2020-08-06] MEDS: PRIMIDONE 50 MG TABLET PO SCH (08:16)
[2020-08-06] MEDS: ENOXAPARIN 40 MG/0.4 ML SYRINGE SQ SCH (08:17)
== END 2020-08-06 10:55 | disposition home or self-care (01) | DRG 177 ==
LOC: ED 19:01 → ICU 21:42 → MEDSUR 08-04 18:55
PROVIDERS: ADMIT Internal Medicine; ATTEND Internal Medicine